=== PATIENT | female | born 1990 | race Caucasian/White ===

== ENCOUNTER 2018-01-02 21:41 | Emergency (ER) | payer OTHER ==
[~2018-01-02] VITALS: Ht 162.6 cm; Wt 60.0 kg
[~2018-01-02 21:41] MED LIST: CLOZ100 PO; CLOZ25TA4 PO; DOCU250C91 PO; HALO5I PO; LORA2I PO; NICO14T TD; ZOLP10TA7 PO
[2018-01-02] MEDS ORDERED: PROP10TA73 PO (22:33)
[2018-01-02] MEDS ORDERED: DIPH50 PO (22:33)
[2018-01-02] MEDS ORDERED: ATOM25 PO (22:33)
[2018-01-02] MEDS ORDERED: QUET300T2 PO (22:33)
[2018-01-02] MEDS ORDERED: CITA10TA68 PO (22:33)
[2018-01-02] MEDS ORDERED: QUET100T PO (22:33)
[2018-01-02 23:32] LABS: BASOPHILS % (AUTO) 0.4 % (0.0-2.0); EOSINOPHILS % (AUTO) 0.1 % (1.0-6.0); HEMATOCRIT 37.5 % (36-46); HEMOGLOBIN 13.3 g/dL (12.0-16.0); LYMPHOCYTES # (AUTO) 1.7 K/uL (1.0-4.8); LYMPHOCYTES % (AUTO) 29.1 % (22.0-44.0); MEAN CORPUSCULAR HGB CONC 35.5 G/dL (31.0-37.0); MEAN CORPUSCULAR VOLUME 93 fL (80-100); MONOCYTES # (AUTO) 0.7 K/uL (0.1-1.0); MONOCYTES % (AUTO) 12.6 % (2.0-9.0); NEUTROPHILS # (AUTO) 3.3 K/uL (1.8-7.7); NEUTROPHILS % (AUTO) 57.8 % (40.0-70.0); PLATELET COUNT (AUTO) 227 K/uL (150-450); RED BLOOD CELL COUNT(AUTO) 4.03 MIL/uL (4.00-5.20); RED CELL DISTRIBUTION WIDTH 13.1 % (11.5-14.5)
[2018-01-02 23:43] LABS: ANION GAP 8 mmol/L (8-16); CALCIUM, TOTAL 8.4 mg/dL (8.8-10.5); CARBON DIOXIDE 27 mmol/L (22-29); CHLORIDE 105 mmol/L (98-107); CREATININE 0.83 mg/dL (0.60-1.30); GLOMERULAR FILTR. RATE CALC > 60 mL/min (>60); GLUCOSE,RANDOM 101 mg/dL (70-110); POTASSIUM 3.4 mmol/L (3.5-5.1); SODIUM SERUM 140 mmol/L (136-145); UREA NITROGEN, BLOOD 9 mg/dL (7-18)
[2018-01-02 23:47] LABS: AMPHET/METH SCREEN,URINE NEGATIVE (NEGATIVE); BARBITURATE SCREEN, URINE NEGATIVE (NEGATIVE); BENZODIAZEPINES SCREEN,URINE NEGATIVE (NEGATIVE); CANNABINOID SCREEN,URINE NEGATIVE (NEGATIVE); COCAINE SCREEN,URINE NEGATIVE (NEGATIVE); METHADONE SCREEN, URINE NEGATIVE (NEGATIVE); OPIATE SCREEN,URINE NEGATIVE (NEGATIVE)
[2018-01-02 23:48] LABS: PHENCYCLIDINE SCREEN,URINE NEGATIVE (NEGATIVE)
[2018-01-02 23:49] LABS: ALANINE AMINOTRANSFERASE 21 U/L (12-78); ALKALINE PHOSPHATASE 69 U/L (46-116); ASPARTATE AMINOTRANSFERASE 21 U/L (15-37); BILIRUBIN,TOTAL 0.9 mg/dL (0.1-1.0); TOTAL PROTEIN, SERUM 7.4 g/dL (6.4-8.2)
[2018-01-02 23:50] LABS: ALBUMIN 4.2 g/dL (3.4-5.0)
[2018-01-03 02:18] VITALS: BP 119/79
== END 2018-01-03 03:33 | disposition home or self-care (01) ==
LOC: EMS 21:43
DX: R00.0 Tachycardia, unspecified (principal); F20.0 Paranoid schizophrenia; R45.4 Irritability and anger; F17.210 Nicotine dependence, cigarettes, uncomplicated
CPT/HCPCS: 36415; 80053; 80307; 84703; 85025; 99284; G0480

== ENCOUNTER 2018-01-31 13:11 | Inpatient (IN) | payer MEDICAID, MEDICARE ==
[~2018-01-31] VITALS: Ht 157.5 cm; Wt 69.2 kg
[~2018-01-31 13:11] MED LIST changes: +ATOM25 PO; +CITA10TA68 PO; -CLOZ100 PO; -CLOZ25TA4 PO; +DIPH50 PO; -DOCU250C91 PO; -HALO5I PO; -LORA2I PO; -NICO14T TD; +PROP10TA73 PO; +QUET100T PO; +QUET300T2 PO; -ZOLP10TA7 PO
[2018-01-31] MEDS ORDERED: OXCA300T29 PO (13:24)
[2018-01-31] MEDS ORDERED: QUET100T PO (13:24)
[2018-01-31] MEDS ORDERED: PROP10TA10 PO (13:24)
[2018-01-31] MEDS ORDERED: OLAN10TA3 PO (13:24)
[2018-01-31] MEDS ORDERED: CITA10TA68 PO (13:24)
[2018-01-31] MEDS ORDERED: CHLO50I IM (13:24)
[2018-01-31] MEDS ORDERED: CHLO100T24 PO (13:24)
[2018-01-31] MEDS ORDERED: QUET200T PO (13:24)
[2018-01-31 15:52] LABS: BASOPHILS % (AUTO) 0.2 % (0.0-2.0); EOSINOPHILS % (AUTO) 0.1 % (1.0-6.0); HEMATOCRIT 37.1 % (36-46); LYMPHOCYTES # (AUTO) 1.6 K/uL (1.0-4.8); MEAN CORPUSCULAR HEMOGLOBIN 32.9 pg (26.0-34.0); MEAN CORPUSCULAR HGB CONC 35.2 G/dL (31.0-37.0); MEAN CORPUSCULAR VOLUME 94 fL (80-100); MONOCYTES # (AUTO) 0.7 K/uL (0.1-1.0); MONOCYTES % (AUTO) 13.8 % (2.0-9.0); NEUTROPHILS # (AUTO) 2.8 K/uL (1.8-7.7); NEUTROPHILS % (AUTO) 54.9 % (40.0-70.0); PLATELET COUNT (AUTO) 248 K/uL (150-450); RED BLOOD CELL COUNT(AUTO) 3.96 MIL/uL (4.00-5.20); RED CELL DISTRIBUTION WIDTH 12.9 % (11.5-14.5)
[2018-01-31 15:58] LABS: ANION GAP 6 mmol/L (8-16); CALCIUM, TOTAL 8.2 mg/dL (8.8-10.5); CARBON DIOXIDE 27 mmol/L (22-29); CHLORIDE 98 mmol/L (98-107); CREATININE 0.58 mg/dL (0.60-1.30); GLOMERULAR FILTR. RATE CALC > 60 mL/min (>60); GLUCOSE,RANDOM 109 mg/dL (70-110); POTASSIUM 3.8 mmol/L (3.5-5.1); SODIUM SERUM 131 mmol/L (136-145); UREA NITROGEN, BLOOD 11 mg/dL (7-18)
[2018-01-31 16:03] LABS: ALANINE AMINOTRANSFERASE 23 U/L (12-78); ALBUMIN 3.6 g/dL (3.4-5.0); ALKALINE PHOSPHATASE 62 U/L (46-116); ASPARTATE AMINOTRANSFERASE 16 U/L (15-37); BILIRUBIN,TOTAL 0.2 mg/dL (0.1-1.0); TOTAL PROTEIN, SERUM 6.8 g/dL (6.4-8.2)
[2018-01-31 17:40] LABS: AMPHET/METH SCREEN,URINE NEGATIVE (NEGATIVE); BARBITURATE SCREEN, URINE NEGATIVE (NEGATIVE); BENZODIAZEPINES SCREEN,URINE NEGATIVE (NEGATIVE); CANNABINOID SCREEN,URINE NEGATIVE (NEGATIVE); COCAINE SCREEN,URINE NEGATIVE (NEGATIVE); METHADONE SCREEN, URINE NEGATIVE (NEGATIVE); OPIATE SCREEN,URINE NEGATIVE (NEGATIVE)
[2018-01-31 17:44] LABS: PHENCYCLIDINE SCREEN,URINE NEGATIVE (NEGATIVE)
[2018-01-31] MEDS ORDERED: LORazepam 2 MG TABLET PO ONE (18:45)
[2018-01-31] MEDS ORDERED: HALOPERIDOL 5 MG TABLET PO PRN (20:15)
[2018-01-31] MEDS ORDERED: HALOPERIDOL 5 MG TABLET PO ONE (20:45)
[2018-01-31] MEDS ORDERED: DiphenhydrAMINE HCL 50 MG CAPSULE PO ONE (20:45)
[2018-01-31 21:13] LABS: CHOL/HDL RATIO 3.3 (3.9-5.7); CHOLESTEROL 158 mg/dL (131-200); HDL CHOLESTEROL 48 mg/dL (40-60); LDL CHOL (CALC.) 79 mg/dL (0-130); TRIGLYCERIDES 154 mg/dL (15-150)
[2018-01-31 21:55] VITALS: BP 118/79
[2018-01-31] MEDS ORDERED: ACETAMINOPHEN 325 MG TABLET PO PRN (22:15)
[2018-01-31] MEDS ORDERED: IBUPROFEN 400 MG TABLET PO PRN (22:15)
[2018-02-01] MEDS: DOCUSATE SODIUM 250 MG CAPSULE PO SCH ×2 (08:33→16:17)
[2018-02-01] MEDS ORDERED: CHLO100T24 PO (09:18)
[2018-02-01] MEDS: OXcarbazepine 300 MG TABLET PO SCH ×2 (10:01→16:17)
[2018-02-01] MEDS: PROPRANOLOL HCL 10 MG TABLET PO SCH ×2 (10:01→16:17)
[2018-02-01] MEDS: CITALOPRAM HYDROBROMIDE 10 MG TABLET PO SCH (10:02)
[2018-02-01] MEDS: NICOTINE 21 MG/24 HOUR PATCH TD SCH (10:05)
[2018-02-01 10:54] VITALS: BP 118/67
[2018-02-01] MEDS ORDERED: DiphenhydrAMINE HCL 50 MG/ML VIAL IM PRN (11:45)
[2018-02-01] MEDS: QUEtiapine FUMARATE 100 MG TABLET PO SCH ×2 (13:25→16:17)
[2018-02-01] MEDS: ChlorproMAZINE HCL 100 MG TABLET PO SCH ×2 (13:25→16:19)
[2018-02-01 19:59] VITALS: BP 125/75
[2018-02-01] MEDS: QUEtiapine FUMARATE 200 MG TABLET PO SCH (20:52)
[2018-02-02] MEDS: ChlorproMAZINE HCL 100 MG TABLET PO SCH ×3 (08:42→16:43)
[2018-02-02] MEDS: CITALOPRAM HYDROBROMIDE 10 MG TABLET PO SCH (08:42)
[2018-02-02] MEDS: QUEtiapine FUMARATE 100 MG TABLET PO SCH ×3 (08:42→16:43)
[2018-02-02] MEDS: DOCUSATE SODIUM 250 MG CAPSULE PO SCH ×2 (08:42→16:44)
[2018-02-02] MEDS: PROPRANOLOL HCL 10 MG TABLET PO SCH ×2 (08:42→16:43)
[2018-02-02] MEDS: OXcarbazepine 300 MG TABLET PO SCH ×2 (08:42→16:43)
[2018-02-02] MEDS: NICOTINE 21 MG/24 HOUR PATCH TD SCH (09:00)
[2018-02-02] MEDS: QUEtiapine FUMARATE 200 MG TABLET PO SCH (21:30)
[2018-02-03] MEDS: ChlorproMAZINE HCL 100 MG TABLET PO SCH ×3 (08:32→16:13)
[2018-02-03] MEDS: PROPRANOLOL HCL 10 MG TABLET PO SCH ×2 (08:32→16:14)
[2018-02-03] MEDS: CITALOPRAM HYDROBROMIDE 10 MG TABLET PO SCH (08:32)
[2018-02-03] MEDS: OXcarbazepine 300 MG TABLET PO SCH ×2 (08:32→16:13)
[2018-02-03] MEDS: QUEtiapine FUMARATE 100 MG TABLET PO SCH ×3 (08:33→16:14)
[2018-02-03] MEDS: DOCUSATE SODIUM 250 MG CAPSULE PO SCH ×2 (08:33→16:14)
[2018-02-03] MEDS: LORazepam 2 MG TABLET PO PRN (08:35)
[2018-02-03] MEDS: NICOTINE 21 MG/24 HOUR PATCH TD SCH (08:38)
[2018-02-03 10:13] VITALS: BP 133/88
[2018-02-03 16:00] VITALS: BP 135/80
[2018-02-03] MEDS: QUEtiapine FUMARATE 200 MG TABLET PO SCH (21:47)
[2018-02-04 06:48] LABS: ANION GAP 9 mmol/L (8-16); CALCIUM, TOTAL 8.6 mg/dL (8.8-10.5); CARBON DIOXIDE 25 mmol/L (22-29); CHLORIDE 103 mmol/L (98-107); GLOMERULAR FILTR. RATE CALC > 60 mL/min (>60); GLUCOSE,RANDOM 91 mg/dL (70-110); POTASSIUM 4.4 mmol/L (3.5-5.1); SODIUM SERUM 137 mmol/L (136-145); UREA NITROGEN, BLOOD 13 mg/dL (7-18)
[2018-02-04 08:00] VITALS: BP 117/75
[2018-02-04] MEDS: LORazepam 2 MG TABLET PO PRN ×2 (08:00→12:30)
[2018-02-04] MEDS: QUEtiapine FUMARATE 100 MG TABLET PO SCH ×3 (09:34→16:26)
[2018-02-04] MEDS: DOCUSATE SODIUM 250 MG CAPSULE PO SCH ×2 (09:34→16:27)
[2018-02-04] MEDS: PROPRANOLOL HCL 10 MG TABLET PO SCH ×2 (09:34→16:29)
[2018-02-04] MEDS: OXcarbazepine 300 MG TABLET PO SCH ×2 (09:36→16:27)
[2018-02-04] MEDS: ChlorproMAZINE HCL 100 MG TABLET PO SCH ×3 (09:36→16:27)
[2018-02-04] MEDS: NICOTINE 21 MG/24 HOUR PATCH TD SCH (09:40)
[2018-02-04] MEDS: CITALOPRAM HYDROBROMIDE 10 MG TABLET PO SCH (09:45)
[2018-02-04 16:28] VITALS: BP 113/61
[2018-02-04] MEDS: QUEtiapine FUMARATE 200 MG TABLET PO SCH (20:44)
[2018-02-05] MEDS: ChlorproMAZINE HCL 100 MG TABLET PO SCH ×3 (08:23→16:44)
[2018-02-05] MEDS: QUEtiapine FUMARATE 100 MG TABLET PO SCH ×3 (08:24→16:44)
[2018-02-05] MEDS: PROPRANOLOL HCL 10 MG TABLET PO SCH ×2 (08:24→16:44)
[2018-02-05] MEDS: DOCUSATE SODIUM 250 MG CAPSULE PO SCH ×2 (08:24→16:43)
[2018-02-05] MEDS: OXcarbazepine 300 MG TABLET PO SCH ×2 (08:24→16:44)
[2018-02-05] MEDS: CITALOPRAM HYDROBROMIDE 10 MG TABLET PO SCH (08:24)
[2018-02-05] MEDS: NICOTINE 21 MG/24 HOUR PATCH TD SCH (08:25)
[2018-02-05] MEDS: LORazepam 2 MG TABLET PO PRN ×2 (09:37→15:49)
[2018-02-05 09:47] VITALS: BP 90/65
[2018-02-05] MEDS: QUEtiapine FUMARATE 200 MG TABLET PO SCH (21:25)
[2018-02-06] MEDS: LORazepam 2 MG TABLET PO PRN ×2 (05:50→12:08)
[2018-02-06] MEDS: ChlorproMAZINE HCL 100 MG TABLET PO SCH ×3 (08:01→16:27)
[2018-02-06] MEDS: DOCUSATE SODIUM 250 MG CAPSULE PO SCH ×2 (08:01→16:28)
[2018-02-06] MEDS: QUEtiapine FUMARATE 100 MG TABLET PO SCH ×3 (08:01→16:28)
[2018-02-06] MEDS: PROPRANOLOL HCL 10 MG TABLET PO SCH ×2 (08:01→16:27)
[2018-02-06] MEDS: OXcarbazepine 300 MG TABLET PO SCH ×2 (08:01→16:27)
[2018-02-06] MEDS: NICOTINE 21 MG/24 HOUR PATCH TD SCH (08:02)
[2018-02-06] MEDS: CITALOPRAM HYDROBROMIDE 10 MG TABLET PO SCH (08:02)
[2018-02-06] MEDS: OLANZapine 5 MG TABLET PO PRN ×2 (08:04→12:09)
[2018-02-06 16:39] VITALS: BP 114/69
[2018-02-06] MEDS: QUEtiapine FUMARATE 200 MG TABLET PO SCH (22:14)
[2018-02-07] MEDS: LORazepam 2 MG TABLET PO PRN ×3 (04:15→12:59)
[2018-02-07] MEDS: ChlorproMAZINE HCL 100 MG TABLET PO SCH ×3 (07:53→16:06)
[2018-02-07] MEDS: PROPRANOLOL HCL 10 MG TABLET PO SCH ×2 (07:53→16:06)
[2018-02-07] MEDS: OXcarbazepine 300 MG TABLET PO SCH ×2 (07:53→16:06)
[2018-02-07] MEDS: QUEtiapine FUMARATE 100 MG TABLET PO SCH ×3 (07:53→16:06)
[2018-02-07] MEDS: DOCUSATE SODIUM 250 MG CAPSULE PO SCH ×2 (07:53→16:06)
[2018-02-07] MEDS: CITALOPRAM HYDROBROMIDE 10 MG TABLET PO SCH (07:53)
[2018-02-07] MEDS: NICOTINE 21 MG/24 HOUR PATCH TD SCH (07:53)
[2018-02-07 08:00] VITALS: BP 116/75
[2018-02-07] MEDS: OLANZapine 5 MG TABLET PO PRN ×2 (08:53→12:59)
[2018-02-07 20:10] VITALS: BP 114/85
[2018-02-07] MEDS: QUEtiapine FUMARATE 200 MG TABLET PO SCH (21:14)
[2018-02-08] MEDS: CITALOPRAM HYDROBROMIDE 10 MG TABLET PO SCH (08:04)
[2018-02-08] MEDS: OLANZapine 5 MG TABLET PO PRN ×2 (08:05→12:31)
[2018-02-08] MEDS: OXcarbazepine 300 MG TABLET PO SCH ×2 (08:05→17:01)
[2018-02-08] MEDS: NICOTINE 21 MG/24 HOUR PATCH TD SCH (08:05)
[2018-02-08] MEDS: LORazepam 2 MG TABLET PO PRN ×3 (08:05→17:01)
[2018-02-08] MEDS: QUEtiapine FUMARATE 100 MG TABLET PO SCH ×3 (08:05→16:44)
[2018-02-08] MEDS: PROPRANOLOL HCL 10 MG TABLET PO SCH ×2 (08:05→17:01)
[2018-02-08] MEDS: ChlorproMAZINE HCL 100 MG TABLET PO SCH ×3 (08:06→17:01)
[2018-02-08] MEDS: DOCUSATE SODIUM 250 MG CAPSULE PO SCH ×2 (08:07→16:44)
[2018-02-08 09:00] VITALS: BP 118/64
[2018-02-08 16:19] VITALS: BP 130/90
[2018-02-08] MEDS: QUEtiapine FUMARATE 200 MG TABLET PO SCH (21:11)
[2018-02-09] MEDS: ZOLPIDEM TARTRATE 10 MG TABLET PO PRN (01:27)
[2018-02-09] MEDS: OLANZapine 5 MG TABLET PO PRN (01:27)
[2018-02-09] MEDS: CITALOPRAM HYDROBROMIDE 10 MG TABLET PO SCH (08:15)
[2018-02-09] MEDS: ChlorproMAZINE HCL 100 MG TABLET PO SCH ×3 (08:16→17:11)
[2018-02-09] MEDS: OXcarbazepine 300 MG TABLET PO SCH ×2 (08:16→17:11)
[2018-02-09] MEDS: PROPRANOLOL HCL 10 MG TABLET PO SCH ×2 (08:16→17:11)
[2018-02-09] MEDS: DOCUSATE SODIUM 250 MG CAPSULE PO SCH ×2 (08:16→17:11)
[2018-02-09] MEDS: QUEtiapine FUMARATE 100 MG TABLET PO SCH ×3 (08:16→17:11)
[2018-02-09] MEDS: NICOTINE 21 MG/24 HOUR PATCH TD SCH (08:20)
[2018-02-09] MEDS: LORazepam 2 MG TABLET PO PRN ×2 (08:28→14:55)
[2018-02-09] MEDS ORDERED: TUBERCULIN, PURIFIED PROTEIN DERIVATIVE 5 TU/0.1 ML SYG ID ONE (14:30)
[2018-02-09 16:12] VITALS: BP 123/78
[2018-02-09] MEDS: QUEtiapine FUMARATE 200 MG TABLET PO SCH (21:08)
[2018-02-10 09:07] VITALS: BP 126/72
[2018-02-10] MEDS: CITALOPRAM HYDROBROMIDE 10 MG TABLET PO SCH (09:56)
[2018-02-10] MEDS: LORazepam 2 MG TABLET PO PRN ×2 (10:00→16:48)
[2018-02-10] MEDS: PROPRANOLOL HCL 10 MG TABLET PO SCH ×2 (10:01→16:48)
[2018-02-10] MEDS: NICOTINE 21 MG/24 HOUR PATCH TD SCH (10:01)
[2018-02-10] MEDS: ChlorproMAZINE HCL 100 MG TABLET PO SCH ×3 (10:01→16:47)
[2018-02-10] MEDS: QUEtiapine FUMARATE 100 MG TABLET PO SCH ×3 (10:01→16:48)
[2018-02-10] MEDS: DOCUSATE SODIUM 250 MG CAPSULE PO SCH ×2 (10:01→16:48)
[2018-02-10] MEDS: OLANZapine 5 MG TABLET PO PRN (10:02)
[2018-02-10] MEDS: OXcarbazepine 300 MG TABLET PO SCH ×2 (10:02→16:47)
[2018-02-10 16:00] VITALS: BP 121/82
[2018-02-10] MEDS: ZOLPIDEM TARTRATE 10 MG TABLET PO PRN (21:12)
[2018-02-10] MEDS: QUEtiapine FUMARATE 200 MG TABLET PO SCH (21:13)
[2018-02-11 07:02] LABS: ANION GAP 7 mmol/L (8-16); CALCIUM, TOTAL 8.2 mg/dL (8.8-10.5); CARBON DIOXIDE 26 mmol/L (22-29); CHLORIDE 98 mmol/L (98-107); GLOMERULAR FILTR. RATE CALC > 60 mL/min (>60); GLUCOSE,RANDOM 94 mg/dL (70-110); POTASSIUM 4.2 mmol/L (3.5-5.1); SODIUM SERUM 131 mmol/L (136-145); UREA NITROGEN, BLOOD 17 mg/dL (7-18)
[2018-02-11 08:44] VITALS: BP 104/70
[2018-02-11 08:48] VITALS: BP 104/70
[2018-02-11] MEDS: ChlorproMAZINE HCL 100 MG TABLET PO SCH ×3 (08:49→16:33)
[2018-02-11] MEDS: PROPRANOLOL HCL 10 MG TABLET PO SCH ×2 (08:49→16:33)
[2018-02-11] MEDS: CITALOPRAM HYDROBROMIDE 10 MG TABLET PO SCH (08:49)
[2018-02-11] MEDS: OXcarbazepine 300 MG TABLET PO SCH ×2 (08:49→16:34)
[2018-02-11] MEDS: QUEtiapine FUMARATE 100 MG TABLET PO SCH ×3 (08:49→16:33)
[2018-02-11] MEDS: NICOTINE 21 MG/24 HOUR PATCH TD SCH (08:50)
[2018-02-11] MEDS: DOCUSATE SODIUM 250 MG CAPSULE PO SCH ×2 (08:50→16:33)
[2018-02-11] MEDS: LORazepam 2 MG TABLET PO PRN ×2 (09:06→17:04)
[2018-02-11] MEDS: QUEtiapine FUMARATE 200 MG TABLET PO SCH (20:16)
[2018-02-11] MEDS: ZOLPIDEM TARTRATE 10 MG TABLET PO PRN (20:31)
[2018-02-12 04:27] VITALS: BP 116/68
[2018-02-12] MEDS: CITALOPRAM HYDROBROMIDE 10 MG TABLET PO SCH (08:22)
[2018-02-12] MEDS: OXcarbazepine 300 MG TABLET PO SCH ×2 (08:24→16:11)
[2018-02-12] MEDS: DOCUSATE SODIUM 250 MG CAPSULE PO SCH ×2 (08:25→16:11)
[2018-02-12] MEDS: PROPRANOLOL HCL 10 MG TABLET PO SCH ×2 (08:25→16:11)
[2018-02-12] MEDS: LORazepam 2 MG TABLET PO PRN ×2 (08:25→13:18)
[2018-02-12] MEDS: ChlorproMAZINE HCL 100 MG TABLET PO SCH ×3 (08:25→16:11)
[2018-02-12] MEDS: OLANZapine 5 MG TABLET PO PRN ×2 (08:25→13:18)
[2018-02-12] MEDS: QUEtiapine FUMARATE 100 MG TABLET PO SCH ×3 (08:25→16:11)
[2018-02-12] MEDS: NICOTINE 21 MG/24 HOUR PATCH TD SCH (08:26)
[2018-02-12 12:18] VITALS: BP 100/58
[2018-02-12 16:00] VITALS: BP 116/71
[2018-02-12] MEDS: SODIUM CHLORIDE 1 GM TABLET PO SCH (16:14)
[2018-02-12] MEDS: QUEtiapine FUMARATE 200 MG TABLET PO SCH (20:17)
[2018-02-13] MEDS: CITALOPRAM HYDROBROMIDE 10 MG TABLET PO SCH (08:32)
[2018-02-13] MEDS: DOCUSATE SODIUM 250 MG CAPSULE PO SCH ×2 (08:32→16:24)
[2018-02-13] MEDS: ChlorproMAZINE HCL 100 MG TABLET PO SCH ×3 (08:32→16:24)
[2018-02-13] MEDS: SODIUM CHLORIDE 1 GM TABLET PO SCH ×2 (08:33→16:24)
[2018-02-13] MEDS: OXcarbazepine 300 MG TABLET PO SCH ×2 (08:33→16:24)
[2018-02-13] MEDS: QUEtiapine FUMARATE 100 MG TABLET PO SCH ×3 (08:33→16:24)
[2018-02-13] MEDS: PROPRANOLOL HCL 10 MG TABLET PO SCH ×2 (08:33→16:26)
[2018-02-13] MEDS: OLANZapine 5 MG TABLET PO PRN ×2 (08:35→12:37)
[2018-02-13] MEDS: LORazepam 2 MG TABLET PO PRN ×2 (08:35→12:37)
[2018-02-13] MEDS: NICOTINE 21 MG/24 HOUR PATCH TD SCH (09:00)
[2018-02-13 09:23] VITALS: BP 107/66
[2018-02-13 16:30] VITALS: BP 112/64
[2018-02-13] MEDS: QUEtiapine FUMARATE 200 MG TABLET PO SCH (20:16)
[2018-02-14] MEDS: OXcarbazepine 300 MG TABLET PO SCH ×2 (08:36→16:14)
[2018-02-14] MEDS: CITALOPRAM HYDROBROMIDE 10 MG TABLET PO SCH (08:36)
[2018-02-14] MEDS: QUEtiapine FUMARATE 100 MG TABLET PO SCH ×3 (08:36→16:15)
[2018-02-14] MEDS: DOCUSATE SODIUM 250 MG CAPSULE PO SCH ×2 (08:36→16:15)
[2018-02-14] MEDS: ChlorproMAZINE HCL 100 MG TABLET PO SCH ×3 (08:36→16:15)
[2018-02-14] MEDS: SODIUM CHLORIDE 1 GM TABLET PO SCH ×2 (08:36→16:14)
[2018-02-14] MEDS: NICOTINE 21 MG/24 HOUR PATCH TD SCH (08:36)
[2018-02-14] MEDS: PROPRANOLOL HCL 10 MG TABLET PO SCH ×2 (08:36→16:15)
[2018-02-14] MEDS: LORazepam 2 MG TABLET PO PRN ×2 (10:26→16:00)
[2018-02-14 12:37] VITALS: BP 109/67
[2018-02-14 16:00] VITALS: BP 129/81
[2018-02-14] MEDS: QUEtiapine FUMARATE 200 MG TABLET PO SCH (20:04)
[2018-02-14] MEDS: ZOLPIDEM TARTRATE 10 MG TABLET PO PRN (20:04)
[2018-02-15 07:09] LABS: ANION GAP 7 mmol/L (8-16); CALCIUM, TOTAL 8.4 mg/dL (8.8-10.5); CARBON DIOXIDE 24 mmol/L (22-29); CHLORIDE 94 mmol/L (98-107); CREATININE 0.66 mg/dL (0.60-1.30); GLOMERULAR FILTR. RATE CALC > 60 mL/min (>60); GLUCOSE,RANDOM 92 mg/dL (70-110); POTASSIUM 4.4 mmol/L (3.5-5.1); SODIUM SERUM 125 mmol/L (136-145); UREA NITROGEN, BLOOD 12 mg/dL (7-18)
[2018-02-15 10:10] VITALS: BP 121/71
[2018-02-15] MEDS: SODIUM CHLORIDE 1 GM TABLET PO SCH ×2 (11:15→23:05)
[2018-02-15] MEDS: CITALOPRAM HYDROBROMIDE 10 MG TABLET PO SCH (11:15)
[2018-02-15] MEDS: QUEtiapine FUMARATE 100 MG TABLET PO SCH ×3 (11:17→16:46)
[2018-02-15] MEDS: NICOTINE 21 MG/24 HOUR PATCH TD SCH (11:17)
[2018-02-15] MEDS: PROPRANOLOL HCL 10 MG TABLET PO SCH ×2 (11:18→18:23)
[2018-02-15] MEDS: OXcarbazepine 300 MG TABLET PO SCH ×2 (11:18→16:45)
[2018-02-15] MEDS: LORazepam 2 MG TABLET PO PRN ×2 (11:18→16:47)
[2018-02-15] MEDS: OLANZapine 5 MG TABLET PO PRN (11:18)
[2018-02-15] MEDS: DOCUSATE SODIUM 250 MG CAPSULE PO SCH ×2 (11:19→16:45)
[2018-02-15] MEDS: ChlorproMAZINE HCL 100 MG TABLET PO SCH ×2 (14:28→16:46)
[2018-02-15 16:18] VITALS: BP 130/80
[2018-02-15] MEDS: QUEtiapine FUMARATE 200 MG TABLET PO SCH (23:05)
[2018-02-16 06:22] LABS: BASOPHILS % (AUTO) 0.2 % (0.0-2.0); EOSINOPHILS % (AUTO) 0.2 % (1.0-6.0); HEMATOCRIT 37.3 % (36-46); LYMPHOCYTES # (AUTO) 1.8 K/uL (1.0-4.8); LYMPHOCYTES % (AUTO) 30.7 % (22.0-44.0); MEAN CORPUSCULAR HEMOGLOBIN 32.9 pg (26.0-34.0); MEAN CORPUSCULAR HGB CONC 34.9 G/dL (31.0-37.0); MEAN CORPUSCULAR VOLUME 94 fL (80-100); MONOCYTES # (AUTO) 0.9 K/uL (0.1-1.0); MONOCYTES % (AUTO) 15.5 % (2.0-9.0); NEUTROPHILS # (AUTO) 3.1 K/uL (1.8-7.7); NEUTROPHILS % (AUTO) 53.4 % (40.0-70.0); PLATELET COUNT (AUTO) 211 K/uL (150-450); RED BLOOD CELL COUNT(AUTO) 3.95 MIL/uL (4.00-5.20); RED CELL DISTRIBUTION WIDTH 12.8 % (11.5-14.5)
[2018-02-16 06:28] LABS: ANION GAP 5 mmol/L (8-16); CALCIUM, TOTAL 8.5 mg/dL (8.8-10.5); CARBON DIOXIDE 26 mmol/L (22-29); CHLORIDE 102 mmol/L (98-107); CREATININE 0.66 mg/dL (0.60-1.30); GLOMERULAR FILTR. RATE CALC > 60 mL/min (>60); GLUCOSE,RANDOM 98 mg/dL (70-110); POTASSIUM 4.2 mmol/L (3.5-5.1); SODIUM SERUM 133 mmol/L (136-145); UREA NITROGEN, BLOOD 14 mg/dL (7-18)
[2018-02-16] MEDS: CITALOPRAM HYDROBROMIDE 10 MG TABLET PO SCH (08:56)
[2018-02-16] MEDS: PROPRANOLOL HCL 10 MG TABLET PO SCH ×2 (08:57→16:25)
[2018-02-16] MEDS: SODIUM CHLORIDE 1 GM TABLET PO SCH ×3 (08:57→16:26)
[2018-02-16] MEDS: OXcarbazepine 300 MG TABLET PO SCH ×2 (08:58→16:26)
[2018-02-16] MEDS: QUEtiapine FUMARATE 100 MG TABLET PO SCH ×3 (08:58→16:25)
[2018-02-16] MEDS: ChlorproMAZINE HCL 100 MG TABLET PO SCH ×3 (08:58→16:25)
[2018-02-16] MEDS: DOCUSATE SODIUM 250 MG CAPSULE PO SCH ×2 (08:59→16:26)
[2018-02-16] MEDS: NICOTINE 21 MG/24 HOUR PATCH TD SCH (08:59)
[2018-02-16] MEDS ORDERED: CloZAPine 25 MG TABLET PO SCH (09:00)
[2018-02-16 12:24] VITALS: BP 107/74
[2018-02-16] MEDS: LORazepam 2 MG TABLET PO PRN (12:55)
[2018-02-16 16:27] VITALS: BP 128/74
[2018-02-16] MEDS: QUEtiapine FUMARATE 200 MG TABLET PO SCH (20:58)
[2018-02-16] MEDS: ZOLPIDEM TARTRATE 10 MG TABLET PO PRN (20:58)
[2018-02-17] MEDS: ChlorproMAZINE HCL 100 MG TABLET PO SCH ×3 (08:16→16:06)
[2018-02-17] MEDS: CITALOPRAM HYDROBROMIDE 10 MG TABLET PO SCH (08:16)
[2018-02-17] MEDS: QUEtiapine FUMARATE 100 MG TABLET PO SCH ×3 (08:16→16:07)
[2018-02-17] MEDS: SODIUM CHLORIDE 1 GM TABLET PO SCH ×3 (08:16→16:05)
[2018-02-17] MEDS: LORazepam 2 MG TABLET PO PRN (08:16)
[2018-02-17] MEDS: DOCUSATE SODIUM 250 MG CAPSULE PO SCH ×2 (08:17→16:07)
[2018-02-17] MEDS: OXcarbazepine 300 MG TABLET PO SCH ×2 (08:17→16:06)
[2018-02-17] MEDS: PROPRANOLOL HCL 10 MG TABLET PO SCH ×2 (08:19→16:06)
[2018-02-17] MEDS: NICOTINE 21 MG/24 HOUR PATCH TD SCH (08:21)
[2018-02-17 08:30] VITALS: BP_SYST 106
[2018-02-17 08:39] VITALS: BP 106/77
[2018-02-17] MEDS ORDERED: CloZAPine 25 MG TABLET PO SCH ×2 (09:00→21:00)
[2018-02-17 16:17] VITALS: BP 108/78
[2018-02-17] MEDS: QUEtiapine FUMARATE 200 MG TABLET PO SCH (21:06)
[2018-02-17] MEDS: ZOLPIDEM TARTRATE 10 MG TABLET PO PRN (21:06)
[2018-02-18 06:47] LABS: ANION GAP 10 mmol/L (8-16); CALCIUM, TOTAL 8.7 mg/dL (8.8-10.5); CARBON DIOXIDE 24 mmol/L (22-29); CHLORIDE 102 mmol/L (98-107); CREATININE 0.64 mg/dL (0.60-1.30); GLOMERULAR FILTR. RATE CALC > 60 mL/min (>60); GLUCOSE,RANDOM 106 mg/dL (70-110); POTASSIUM 4.6 mmol/L (3.5-5.1); SODIUM SERUM 136 mmol/L (136-145); UREA NITROGEN, BLOOD 14 mg/dL (7-18)
[2018-02-18] MEDS: LORazepam 2 MG TABLET PO PRN (07:50)
[2018-02-18] MEDS: PROPRANOLOL HCL 10 MG TABLET PO SCH ×2 (08:32→16:31)
[2018-02-18] MEDS: ChlorproMAZINE HCL 100 MG TABLET PO SCH ×3 (08:32→16:31)
[2018-02-18] MEDS: SODIUM CHLORIDE 1 GM TABLET PO SCH ×2 (08:32→12:30)
[2018-02-18] MEDS: NICOTINE 21 MG/24 HOUR PATCH TD SCH (08:32)
[2018-02-18] MEDS: DOCUSATE SODIUM 250 MG CAPSULE PO SCH ×2 (08:33→16:31)
[2018-02-18] MEDS: OXcarbazepine 300 MG TABLET PO SCH ×2 (08:33→16:31)
[2018-02-18] MEDS: CITALOPRAM HYDROBROMIDE 10 MG TABLET PO SCH (08:33)
[2018-02-18] MEDS: QUEtiapine FUMARATE 100 MG TABLET PO SCH ×3 (08:33→16:31)
[2018-02-18] MEDS ORDERED: CloZAPine 25 MG TABLET PO SCH ×2 (09:00→21:00)
[2018-02-18 09:08] VITALS: BP 122/79
[2018-02-18 16:01] VITALS: BP 116/73
[2018-02-18] MEDS: QUEtiapine FUMARATE 200 MG TABLET PO SCH (21:22)
[2018-02-19] MEDS: QUEtiapine FUMARATE 100 MG TABLET PO SCH ×3 (08:06→17:41)
[2018-02-19] MEDS: LORazepam 2 MG TABLET PO PRN (08:07)
[2018-02-19] MEDS: ChlorproMAZINE HCL 100 MG TABLET PO SCH ×3 (08:07→17:40)
[2018-02-19] MEDS: OXcarbazepine 300 MG TABLET PO SCH ×2 (08:07→17:41)
[2018-02-19] MEDS: PROPRANOLOL HCL 10 MG TABLET PO SCH ×2 (08:07→17:40)
[2018-02-19] MEDS: CloZAPine 25 MG TABLET PO SCH ×2 (08:07→20:22)
[2018-02-19] MEDS: CITALOPRAM HYDROBROMIDE 10 MG TABLET PO SCH (08:07)
[2018-02-19] MEDS: DOCUSATE SODIUM 250 MG CAPSULE PO SCH ×2 (08:07→17:41)
[2018-02-19] MEDS: NICOTINE 21 MG/24 HOUR PATCH TD SCH (08:12)
[2018-02-19 09:08] VITALS: BP 124/64
[2018-02-19 16:25] VITALS: BP 118/78
[2018-02-19] MEDS: QUEtiapine FUMARATE 200 MG TABLET PO SCH (20:22)
[2018-02-20 07:04] LABS: ANION GAP 8 mmol/L (8-16); CALCIUM, TOTAL 8.8 mg/dL (8.8-10.5); CARBON DIOXIDE 25 mmol/L (22-29); CHLORIDE 97 mmol/L (98-107); CREATININE 0.68 mg/dL (0.60-1.30); GLOMERULAR FILTR. RATE CALC > 60 mL/min (>60); GLUCOSE,RANDOM 111 mg/dL (70-110); POTASSIUM 4.2 mmol/L (3.5-5.1); SODIUM SERUM 130 mmol/L (136-145); UREA NITROGEN, BLOOD 11 mg/dL (7-18)
[2018-02-20 08:30] VITALS: BP 117/65
[2018-02-20] MEDS: NICOTINE 21 MG/24 HOUR PATCH TD SCH (08:30)
[2018-02-20] MEDS: PROPRANOLOL HCL 10 MG TABLET PO SCH ×2 (08:30→16:45)
[2018-02-20] MEDS: ChlorproMAZINE HCL 100 MG TABLET PO SCH ×3 (08:31→16:45)
[2018-02-20] MEDS: QUEtiapine FUMARATE 100 MG TABLET PO SCH ×3 (08:31→16:45)
[2018-02-20] MEDS: OXcarbazepine 300 MG TABLET PO SCH ×2 (08:31→16:47)
[2018-02-20] MEDS: DOCUSATE SODIUM 250 MG CAPSULE PO SCH ×2 (08:31→16:45)
[2018-02-20] MEDS: CloZAPine 25 MG TABLET PO SCH ×2 (08:32→21:07)
[2018-02-20] MEDS: CITALOPRAM HYDROBROMIDE 10 MG TABLET PO SCH (08:33)
[2018-02-20 16:25] VITALS: BP 112/72
[2018-02-20] MEDS: QUEtiapine FUMARATE 200 MG TABLET PO SCH (21:07)
[2018-02-21] MEDS: CITALOPRAM HYDROBROMIDE 10 MG TABLET PO SCH (07:52)
[2018-02-21] MEDS: DOCUSATE SODIUM 250 MG CAPSULE PO SCH ×2 (07:52→17:14)
[2018-02-21] MEDS: ChlorproMAZINE HCL 100 MG TABLET PO SCH ×3 (07:52→17:14)
[2018-02-21] MEDS: OXcarbazepine 300 MG TABLET PO SCH ×2 (07:52→17:14)
[2018-02-21] MEDS: QUEtiapine FUMARATE 100 MG TABLET PO SCH ×3 (07:52→17:14)
[2018-02-21] MEDS: PROPRANOLOL HCL 10 MG TABLET PO SCH ×2 (07:52→17:14)
[2018-02-21] MEDS: NICOTINE 21 MG/24 HOUR PATCH TD SCH (07:53)
[2018-02-21] MEDS: LORazepam 2 MG TABLET PO PRN (07:53)
[2018-02-21 08:00] VITALS: BP 117/80
[2018-02-21] MEDS ORDERED: CloZAPine 25 MG TABLET PO SCH (09:00)
[2018-02-21 16:06] VITALS: BP 120/74
[2018-02-21] MEDS: QUEtiapine FUMARATE 200 MG TABLET PO SCH (20:24)
[2018-02-21] MEDS ORDERED: CloZAPine 100 MG TABLET PO SCH (21:00)
[2018-02-22 07:03] LABS: ANION GAP 10 mmol/L (8-16); CALCIUM, TOTAL 8.6 mg/dL (8.8-10.5); CARBON DIOXIDE 24 mmol/L (22-29); CHLORIDE 96 mmol/L (98-107); CREATININE 0.61 mg/dL (0.60-1.30); GLOMERULAR FILTR. RATE CALC > 60 mL/min (>60); GLUCOSE,RANDOM 104 mg/dL (70-110); POTASSIUM 4.1 mmol/L (3.5-5.1); SODIUM SERUM 130 mmol/L (136-145); UREA NITROGEN, BLOOD 9 mg/dL (7-18)
[2018-02-22] MEDS: ChlorproMAZINE HCL 100 MG TABLET PO SCH (08:00)
[2018-02-22] MEDS: OXcarbazepine 300 MG TABLET PO SCH ×2 (08:01→16:59)
[2018-02-22] MEDS: CITALOPRAM HYDROBROMIDE 10 MG TABLET PO SCH (08:01)
[2018-02-22] MEDS: DOCUSATE SODIUM 250 MG CAPSULE PO SCH ×2 (08:01→16:59)
[2018-02-22] MEDS: QUEtiapine FUMARATE 100 MG TABLET PO SCH ×3 (08:01→16:59)
[2018-02-22] MEDS: PROPRANOLOL HCL 10 MG TABLET PO SCH ×2 (08:02→16:59)
[2018-02-22] MEDS: NICOTINE 21 MG/24 HOUR PATCH TD SCH (08:02)
[2018-02-22] MEDS ORDERED: CloZAPine 25 MG TABLET PO SCH (09:00)
[2018-02-22] MEDS: ChlorproMAZINE HCL 50 MG TABLET PO SCH ×3 (09:23→17:00)
[2018-02-22 16:13] VITALS: BP 119/72
[2018-02-22] MEDS: SODIUM CHLORIDE 1 GM TABLET PO SCH (16:59)
[2018-02-22] MEDS: QUEtiapine FUMARATE 200 MG TABLET PO SCH (20:03)
[2018-02-22] MEDS: ZOLPIDEM TARTRATE 10 MG TABLET PO PRN (20:03)
[2018-02-22] MEDS ORDERED: CloZAPine 100 MG TABLET PO SCH (21:00)
[2018-02-23 06:50] LABS: BASOPHILS % (AUTO) 0.4 % (0.0-2.0); EOSINOPHILS % (AUTO) 0.1 % (1.0-6.0); HEMATOCRIT 37.5 % (36-46); HEMOGLOBIN 13.2 g/dL (12.0-16.0); LYMPHOCYTES # (AUTO) 1.6 K/uL (1.0-4.8); LYMPHOCYTES % (AUTO) 29.2 % (22.0-44.0); MEAN CORPUSCULAR HEMOGLOBIN 33.2 pg (26.0-34.0); MEAN CORPUSCULAR HGB CONC 35.3 G/dL (31.0-37.0); MEAN CORPUSCULAR VOLUME 94 fL (80-100); MONOCYTES # (AUTO) 0.8 K/uL (0.1-1.0); MONOCYTES % (AUTO) 15.4 % (2.0-9.0); NEUTROPHILS # (AUTO) 2.9 K/uL (1.8-7.7); NEUTROPHILS % (AUTO) 54.9 % (40.0-70.0); PLATELET COUNT (AUTO) 218 K/uL (150-450); RED BLOOD CELL COUNT(AUTO) 3.98 MIL/uL (4.00-5.20); RED CELL DISTRIBUTION WIDTH 13.1 % (11.5-14.5)
[2018-02-23] MEDS: CITALOPRAM HYDROBROMIDE 10 MG TABLET PO SCH (08:13)
[2018-02-23] MEDS: DOCUSATE SODIUM 250 MG CAPSULE PO SCH ×2 (08:13→16:42)
[2018-02-23] MEDS: OXcarbazepine 300 MG TABLET PO SCH ×2 (08:13→16:43)
[2018-02-23] MEDS: QUEtiapine FUMARATE 100 MG TABLET PO SCH ×3 (08:13→16:42)
[2018-02-23] MEDS: SODIUM CHLORIDE 1 GM TABLET PO SCH ×2 (08:13→16:43)
[2018-02-23] MEDS: PROPRANOLOL HCL 10 MG TABLET PO SCH ×2 (08:13→16:43)
[2018-02-23] MEDS: ChlorproMAZINE HCL 50 MG TABLET PO SCH ×3 (08:14→16:43)
[2018-02-23] MEDS ORDERED: CloZAPine 25 MG TABLET PO SCH (09:00)
[2018-02-23] MEDS: NICOTINE 21 MG/24 HOUR PATCH TD SCH (09:51)
[2018-02-23 19:30] VITALS: BP 118/72
[2018-02-23] MEDS: LORazepam 2 MG TABLET PO PRN (19:49)
[2018-02-23] MEDS: ZOLPIDEM TARTRATE 10 MG TABLET PO PRN (20:30)
[2018-02-23] MEDS: QUEtiapine FUMARATE 200 MG TABLET PO SCH (20:30)
[2018-02-23] MEDS ORDERED: CloZAPine 100 MG TABLET PO SCH (21:00)
[2018-02-24 07:58] LABS: ANION GAP 7 mmol/L (8-16); CARBON DIOXIDE 24 mmol/L (22-29); CHLORIDE 103 mmol/L (98-107); CREATININE 0.56 mg/dL (0.60-1.30); GLUCOSE,RANDOM 113 mg/dL (70-110); POTASSIUM 4.2 mmol/L (3.5-5.1); SODIUM SERUM 134 mmol/L (136-145); UREA NITROGEN, BLOOD 8 mg/dL (7-18)
[2018-02-24 07:59] LABS: CALCIUM, TOTAL 8.3 mg/dL (8.8-10.5); GLOMERULAR FILTR. RATE CALC > 60 mL/min (>60)
[2018-02-24 08:26] VITALS: BP 102/62
[2018-02-24] MEDS: DOCUSATE SODIUM 250 MG CAPSULE PO SCH ×2 (09:04→16:24)
[2018-02-24] MEDS: CloZAPine 100 MG TABLET PO SCH ×2 (09:05→20:00)
[2018-02-24] MEDS: QUEtiapine FUMARATE 100 MG TABLET PO SCH ×3 (09:05→16:24)
[2018-02-24] MEDS: OXcarbazepine 300 MG TABLET PO SCH ×2 (09:05→16:25)
[2018-02-24] MEDS: SODIUM CHLORIDE 1 GM TABLET PO SCH ×2 (09:06→16:24)
[2018-02-24] MEDS: PROPRANOLOL HCL 10 MG TABLET PO SCH ×2 (09:06→16:24)
[2018-02-24] MEDS: ChlorproMAZINE HCL 50 MG TABLET PO SCH ×3 (09:06→16:24)
[2018-02-24] MEDS: NICOTINE 21 MG/24 HOUR PATCH TD SCH (09:06)
[2018-02-24] MEDS: CITALOPRAM HYDROBROMIDE 10 MG TABLET PO SCH (09:06)
[2018-02-24 16:05] VITALS: BP 115/78
[2018-02-24] MEDS: QUEtiapine FUMARATE 200 MG TABLET PO SCH (20:00)
[2018-02-24] MEDS: ZOLPIDEM TARTRATE 10 MG TABLET PO PRN (20:36)
[2018-02-25 06:56] LABS: ANION GAP 7 mmol/L (8-16); CALCIUM, TOTAL 8.6 mg/dL (8.8-10.5); CARBON DIOXIDE 25 mmol/L (22-29); CHLORIDE 103 mmol/L (98-107); CREATININE 0.71 mg/dL (0.60-1.30); GLOMERULAR FILTR. RATE CALC > 60 mL/min (>60); GLUCOSE,RANDOM 92 mg/dL (70-110); POTASSIUM 4.3 mmol/L (3.5-5.1); SODIUM SERUM 135 mmol/L (136-145); UREA NITROGEN, BLOOD 11 mg/dL (7-18)
[2018-02-25] MEDS: OXcarbazepine 300 MG TABLET PO SCH ×2 (08:14→16:06)
[2018-02-25] MEDS: QUEtiapine FUMARATE 100 MG TABLET PO SCH ×3 (08:14→16:05)
[2018-02-25] MEDS: NICOTINE 21 MG/24 HOUR PATCH TD SCH (08:14)
[2018-02-25] MEDS: CITALOPRAM HYDROBROMIDE 10 MG TABLET PO SCH (08:14)
[2018-02-25] MEDS: SODIUM CHLORIDE 1 GM TABLET PO SCH ×2 (08:14→16:05)
[2018-02-25] MEDS: PROPRANOLOL HCL 10 MG TABLET PO SCH ×2 (08:14→16:05)
[2018-02-25] MEDS: DOCUSATE SODIUM 250 MG CAPSULE PO SCH ×2 (08:14→16:05)
[2018-02-25] MEDS: ChlorproMAZINE HCL 50 MG TABLET PO SCH ×3 (08:14→16:05)
[2018-02-25] MEDS: CloZAPine 100 MG TABLET PO SCH ×2 (08:15→20:24)
[2018-02-25 08:24] VITALS: BP 105/62
[2018-02-25] MEDS: LORazepam 2 MG TABLET PO PRN (15:22)
[2018-02-25 16:36] VITALS: BP 110/77
[2018-02-25] MEDS: QUEtiapine FUMARATE 200 MG TABLET PO SCH (20:24)
[2018-02-26] MEDS: OXcarbazepine 300 MG TABLET PO SCH ×2 (08:33→16:09)
[2018-02-26] MEDS: LORazepam 2 MG TABLET PO PRN (08:34)
[2018-02-26] MEDS: SODIUM CHLORIDE 1 GM TABLET PO SCH ×2 (08:34→16:08)
[2018-02-26] MEDS: DOCUSATE SODIUM 250 MG CAPSULE PO SCH ×2 (08:34→16:09)
[2018-02-26] MEDS: CITALOPRAM HYDROBROMIDE 10 MG TABLET PO SCH (08:34)
[2018-02-26] MEDS: PROPRANOLOL HCL 10 MG TABLET PO SCH ×2 (08:34→16:08)
[2018-02-26] MEDS: QUEtiapine FUMARATE 100 MG TABLET PO SCH ×3 (08:34→16:09)
[2018-02-26 08:44] VITALS: BP 127/80
[2018-02-26] MEDS: NICOTINE 21 MG/24 HOUR PATCH TD SCH (09:00)
[2018-02-26] MEDS ORDERED: CloZAPine 25 MG TABLET PO SCH (09:00)
[2018-02-26 16:23] VITALS: BP 121/74
[2018-02-26] MEDS: QUEtiapine FUMARATE 200 MG TABLET PO SCH (20:19)
[2018-02-26] MEDS ORDERED: CloZAPine 100 MG TABLET PO SCH (21:00)
[2018-02-27] MEDS: CITALOPRAM HYDROBROMIDE 10 MG TABLET PO SCH (07:56)
[2018-02-27] MEDS: DOCUSATE SODIUM 250 MG CAPSULE PO SCH ×2 (07:57→17:01)
[2018-02-27] MEDS: QUEtiapine FUMARATE 100 MG TABLET PO SCH ×3 (07:58→17:01)
[2018-02-27] MEDS: OXcarbazepine 300 MG TABLET PO SCH ×2 (07:58→17:01)
[2018-02-27] MEDS: SODIUM CHLORIDE 1 GM TABLET PO SCH ×2 (07:58→17:01)
[2018-02-27] MEDS: PROPRANOLOL HCL 10 MG TABLET PO SCH ×2 (07:58→17:01)
[2018-02-27] MEDS: NICOTINE 21 MG/24 HOUR PATCH TD SCH (08:02)
[2018-02-27 08:06] VITALS: BP 107/55
[2018-02-27] MEDS ORDERED: CloZAPine 25 MG TABLET PO SCH (09:00)
[2018-02-27 09:35] LABS: ANION GAP 8 mmol/L (8-16); CALCIUM, TOTAL 8.5 mg/dL (8.8-10.5); CARBON DIOXIDE 26 mmol/L (22-29); CHLORIDE 103 mmol/L (98-107); CREATININE 0.61 mg/dL (0.60-1.30); GLOMERULAR FILTR. RATE CALC > 60 mL/min (>60); GLUCOSE,RANDOM 85 mg/dL (70-110); POTASSIUM 4.1 mmol/L (3.5-5.1); SODIUM SERUM 137 mmol/L (136-145); UREA NITROGEN, BLOOD 12 mg/dL (7-18)
[2018-02-27] MEDS: LORazepam 2 MG TABLET PO PRN (13:07)
[2018-02-27 16:17] VITALS: BP 135/94
[2018-02-27] MEDS ORDERED: CloZAPine 100 MG TABLET PO SCH (21:00)
[2018-02-27] MEDS: QUEtiapine FUMARATE 200 MG TABLET PO SCH (21:31)
[2018-02-28] MEDS: QUEtiapine FUMARATE 100 MG TABLET PO SCH ×3 (09:25→17:20)
[2018-02-28] MEDS: DOCUSATE SODIUM 250 MG CAPSULE PO SCH ×2 (09:25→17:20)
[2018-02-28] MEDS: CloZAPine 100 MG TABLET PO SCH ×2 (09:25→20:29)
[2018-02-28] MEDS: PROPRANOLOL HCL 10 MG TABLET PO SCH ×2 (09:25→17:21)
[2018-02-28] MEDS: SODIUM CHLORIDE 1 GM TABLET PO SCH ×2 (09:26→17:21)
[2018-02-28] MEDS: CITALOPRAM HYDROBROMIDE 10 MG TABLET PO SCH (09:26)
[2018-02-28] MEDS: OXcarbazepine 300 MG TABLET PO SCH ×2 (09:26→17:21)
[2018-02-28] MEDS: NICOTINE 21 MG/24 HOUR PATCH TD SCH (09:31)
[2018-02-28 10:45] VITALS: BP 104/62
[2018-02-28] MEDS: LORazepam 2 MG TABLET PO PRN (14:22)
[2018-02-28 17:18] VITALS: BP 137/68
[2018-02-28] MEDS: QUEtiapine FUMARATE 200 MG TABLET PO SCH (20:29)
[2018-02-28] MEDS: ZOLPIDEM TARTRATE 10 MG TABLET PO PRN (20:29)
[2018-03-01 07:29] LABS: ANION GAP 7 mmol/L (8-16); CALCIUM, TOTAL 8.2 mg/dL (8.8-10.5); CARBON DIOXIDE 24 mmol/L (22-29); CHLORIDE 103 mmol/L (98-107); CREATININE 0.75 mg/dL (0.60-1.30); GLOMERULAR FILTR. RATE CALC > 60 mL/min (>60); GLUCOSE,RANDOM 88 mg/dL (70-110); SODIUM SERUM 134 mmol/L (136-145); UREA NITROGEN, BLOOD 11 mg/dL (7-18)
[2018-03-01 08:34] VITALS: BP 101/65
[2018-03-01] MEDS: DOCUSATE SODIUM 250 MG CAPSULE PO SCH ×2 (08:46→16:49)
[2018-03-01] MEDS: CloZAPine 100 MG TABLET PO SCH ×2 (08:46→20:04)
[2018-03-01] MEDS: PROPRANOLOL HCL 10 MG TABLET PO SCH ×2 (08:46→16:49)
[2018-03-01] MEDS: CITALOPRAM HYDROBROMIDE 10 MG TABLET PO SCH (08:46)
[2018-03-01] MEDS: OXcarbazepine 300 MG TABLET PO SCH ×2 (08:47→16:48)
[2018-03-01] MEDS: SODIUM CHLORIDE 1 GM TABLET PO SCH ×2 (08:47→16:48)
[2018-03-01] MEDS: QUEtiapine FUMARATE 100 MG TABLET PO SCH ×3 (08:48→16:49)
[2018-03-01] MEDS: NICOTINE 21 MG/24 HOUR PATCH TD SCH (08:52)
[2018-03-01 16:31] VITALS: BP 115/85
[2018-03-01] MEDS: LORazepam 2 MG TABLET PO PRN (18:30)
[2018-03-01] MEDS: QUEtiapine FUMARATE 200 MG TABLET PO SCH (20:04)
[2018-03-01] MEDS: ZOLPIDEM TARTRATE 10 MG TABLET PO PRN (20:05)
[2018-03-02 06:10] LABS: BASOPHILS % (AUTO) 0.3 % (0.0-2.0); EOSINOPHILS % (AUTO) 0 % (1.0-6.0); HEMATOCRIT 39.1 % (36-46); HEMOGLOBIN 13.7 g/dL (12.0-16.0); LYMPHOCYTES # (AUTO) 1.8 K/uL (1.0-4.8); LYMPHOCYTES % (AUTO) 41.9 % (22.0-44.0); MEAN CORPUSCULAR HEMOGLOBIN 33.3 pg (26.0-34.0); MEAN CORPUSCULAR VOLUME 95 fL (80-100); MONOCYTES # (AUTO) 0.7 K/uL (0.1-1.0); MONOCYTES % (AUTO) 15.3 % (2.0-9.0); NEUTROPHILS # (AUTO) 1.8 K/uL (1.8-7.7); NEUTROPHILS % (AUTO) 42.5 % (40.0-70.0); PLATELET COUNT (AUTO) 196 K/uL (150-450); RED BLOOD CELL COUNT(AUTO) 4.12 MIL/uL (4.00-5.20)
[2018-03-02 10:41] VITALS: BP 127/86
[2018-03-02] MEDS: CITALOPRAM HYDROBROMIDE 10 MG TABLET PO SCH (10:52)
[2018-03-02] MEDS: QUEtiapine FUMARATE 100 MG TABLET PO SCH ×3 (10:53→17:14)
[2018-03-02] MEDS: PROPRANOLOL HCL 10 MG TABLET PO SCH ×2 (10:53→17:13)
[2018-03-02] MEDS: DOCUSATE SODIUM 250 MG CAPSULE PO SCH ×2 (10:53→17:13)
[2018-03-02] MEDS: SODIUM CHLORIDE 1 GM TABLET PO SCH ×2 (10:53→17:13)
[2018-03-02] MEDS: CloZAPine 100 MG TABLET PO SCH ×2 (10:53→20:11)
[2018-03-02] MEDS: NICOTINE 21 MG/24 HOUR PATCH TD SCH (10:54)
[2018-03-02] MEDS: OXcarbazepine 300 MG TABLET PO SCH ×2 (10:54→17:14)
[2018-03-02 16:05] VITALS: BP 123/81
[2018-03-02] MEDS: QUEtiapine FUMARATE 200 MG TABLET PO SCH (20:11)
[2018-03-02] MEDS: ZOLPIDEM TARTRATE 10 MG TABLET PO PRN (20:46)
[2018-03-03 08:50] VITALS: BP 110/61
[2018-03-03] MEDS: DOCUSATE SODIUM 250 MG CAPSULE PO SCH ×2 (09:21→16:48)
[2018-03-03] MEDS: CITALOPRAM HYDROBROMIDE 10 MG TABLET PO SCH (09:21)
[2018-03-03] MEDS: CloZAPine 100 MG TABLET PO SCH ×2 (09:21→20:13)
[2018-03-03] MEDS: SODIUM CHLORIDE 1 GM TABLET PO SCH ×2 (09:22→16:49)
[2018-03-03] MEDS: NICOTINE 21 MG/24 HOUR PATCH TD SCH (09:22)
[2018-03-03] MEDS: QUEtiapine FUMARATE 100 MG TABLET PO SCH ×3 (09:22→16:49)
[2018-03-03] MEDS: OXcarbazepine 300 MG TABLET PO SCH ×2 (09:22→16:49)
[2018-03-03] MEDS: PROPRANOLOL HCL 10 MG TABLET PO SCH ×2 (09:22→16:49)
[2018-03-03] MEDS: LORazepam 2 MG TABLET PO PRN (12:41)
[2018-03-03 16:20] VITALS: BP 121/79
[2018-03-03] MEDS: QUEtiapine FUMARATE 200 MG TABLET PO SCH (20:13)
[2018-03-03] MEDS: ZOLPIDEM TARTRATE 10 MG TABLET PO PRN (20:45)
[2018-03-04 07:29] LABS: ANION GAP 12 mmol/L (8-16); CALCIUM, TOTAL 8.6 mg/dL (8.8-10.5); CARBON DIOXIDE 23 mmol/L (22-29); CHLORIDE 101 mmol/L (98-107); CREATININE 0.71 mg/dL (0.60-1.30); GLOMERULAR FILTR. RATE CALC > 60 mL/min (>60); GLUCOSE,RANDOM 87 mg/dL (70-110); POTASSIUM 4.1 mmol/L (3.5-5.1); SODIUM SERUM 136 mmol/L (136-145); UREA NITROGEN, BLOOD 11 mg/dL (7-18)
[2018-03-04] MEDS: PROPRANOLOL HCL 10 MG TABLET PO SCH ×2 (08:17→16:22)
[2018-03-04] MEDS: QUEtiapine FUMARATE 100 MG TABLET PO SCH ×3 (08:17→16:22)
[2018-03-04] MEDS: OXcarbazepine 300 MG TABLET PO SCH ×2 (08:17→16:22)
[2018-03-04] MEDS: CITALOPRAM HYDROBROMIDE 10 MG TABLET PO SCH (08:18)
[2018-03-04] MEDS: SODIUM CHLORIDE 1 GM TABLET PO SCH ×2 (08:18→16:22)
[2018-03-04] MEDS: DOCUSATE SODIUM 250 MG CAPSULE PO SCH ×2 (08:18→16:23)
[2018-03-04] MEDS: CloZAPine 100 MG TABLET PO SCH ×2 (08:18→20:35)
[2018-03-04] MEDS: NICOTINE 21 MG/24 HOUR PATCH TD SCH (08:19)
[2018-03-04 09:29] VITALS: BP 118/78
[2018-03-04 17:05] VITALS: BP 127/75
[2018-03-04] MEDS: QUEtiapine FUMARATE 200 MG TABLET PO SCH (20:34)
[2018-03-04] MEDS: ZOLPIDEM TARTRATE 10 MG TABLET PO PRN (21:01)
[2018-03-05] MEDS: OXcarbazepine 300 MG TABLET PO SCH ×2 (08:30→17:05)
[2018-03-05] MEDS: CloZAPine 100 MG TABLET PO SCH ×2 (08:30→20:30)
[2018-03-05] MEDS: SODIUM CHLORIDE 1 GM TABLET PO SCH ×2 (08:31→17:05)
[2018-03-05] MEDS: PROPRANOLOL HCL 10 MG TABLET PO SCH ×2 (08:31→17:05)
[2018-03-05] MEDS: DOCUSATE SODIUM 250 MG CAPSULE PO SCH ×2 (08:31→17:05)
[2018-03-05] MEDS: QUEtiapine FUMARATE 100 MG TABLET PO SCH ×3 (08:31→17:05)
[2018-03-05] MEDS: CITALOPRAM HYDROBROMIDE 10 MG TABLET PO SCH (08:32)
[2018-03-05] MEDS: NICOTINE 21 MG/24 HOUR PATCH TD SCH (08:33)
[2018-03-05 08:55] VITALS: BP 112/67
[2018-03-05] MEDS: QUEtiapine FUMARATE 200 MG TABLET PO SCH (20:30)
[2018-03-05] MEDS: ZOLPIDEM TARTRATE 10 MG TABLET PO PRN (21:08)
[2018-03-06 08:22] LABS: ANION GAP 11 mmol/L (8-16); CALCIUM, TOTAL 8.7 mg/dL (8.8-10.5); CARBON DIOXIDE 25 mmol/L (22-29); CHLORIDE 101 mmol/L (98-107); CREATININE 0.65 mg/dL (0.60-1.30); GLOMERULAR FILTR. RATE CALC > 60 mL/min (>60); GLUCOSE,RANDOM 91 mg/dL (70-110); POTASSIUM 4.1 mmol/L (3.5-5.1); SODIUM SERUM 137 mmol/L (136-145); UREA NITROGEN, BLOOD 11 mg/dL (7-18)
[2018-03-06 08:30] VITALS: BP 115/74
[2018-03-06] MEDS: CITALOPRAM HYDROBROMIDE 10 MG TABLET PO SCH (09:08)
[2018-03-06] MEDS: DOCUSATE SODIUM 250 MG CAPSULE PO SCH ×2 (09:08→17:00)
[2018-03-06] MEDS: SODIUM CHLORIDE 1 GM TABLET PO SCH ×2 (09:08→17:00)
[2018-03-06] MEDS: PROPRANOLOL HCL 10 MG TABLET PO SCH ×2 (09:08→16:47)
[2018-03-06] MEDS: CloZAPine 100 MG TABLET PO SCH ×2 (09:08→20:22)
[2018-03-06] MEDS: OXcarbazepine 300 MG TABLET PO SCH ×2 (09:09→16:47)
[2018-03-06] MEDS: NICOTINE 21 MG/24 HOUR PATCH TD SCH (09:09)
[2018-03-06] MEDS: QUEtiapine FUMARATE 100 MG TABLET PO SCH ×3 (09:09→16:47)
[2018-03-06 16:00] VITALS: BP 124/78
[2018-03-06] MEDS: ZOLPIDEM TARTRATE 10 MG TABLET PO PRN (20:21)
[2018-03-06] MEDS: QUEtiapine FUMARATE 200 MG TABLET PO SCH (20:21)
[2018-03-07] MEDS: QUEtiapine FUMARATE 100 MG TABLET PO SCH ×3 (08:34→16:55)
[2018-03-07] MEDS: DOCUSATE SODIUM 250 MG CAPSULE PO SCH ×2 (08:34→16:55)
[2018-03-07] MEDS: CloZAPine 100 MG TABLET PO SCH ×2 (08:34→20:17)
[2018-03-07] MEDS: OXcarbazepine 300 MG TABLET PO SCH ×2 (08:34→16:55)
[2018-03-07] MEDS: PROPRANOLOL HCL 10 MG TABLET PO SCH ×2 (08:34→16:55)
[2018-03-07] MEDS: CITALOPRAM HYDROBROMIDE 10 MG TABLET PO SCH (08:35)
[2018-03-07] MEDS: SODIUM CHLORIDE 1 GM TABLET PO SCH ×2 (08:35→16:55)
[2018-03-07] MEDS: NICOTINE 21 MG/24 HOUR PATCH TD SCH (08:39)
[2018-03-07 16:22] VITALS: BP 119/78
[2018-03-07] MEDS: QUEtiapine FUMARATE 200 MG TABLET PO SCH (20:17)
[2018-03-08 09:02] VITALS: BP 109/67
[2018-03-08] MEDS: CITALOPRAM HYDROBROMIDE 10 MG TABLET PO SCH (09:25)
[2018-03-08] MEDS: SODIUM CHLORIDE 1 GM TABLET PO SCH ×2 (09:25→16:59)
[2018-03-08] MEDS: PROPRANOLOL HCL 10 MG TABLET PO SCH ×2 (09:28→16:59)
[2018-03-08] MEDS: QUEtiapine FUMARATE 100 MG TABLET PO SCH ×3 (09:28→16:59)
[2018-03-08] MEDS: OXcarbazepine 300 MG TABLET PO SCH ×2 (09:28→16:59)
[2018-03-08] MEDS: NICOTINE 21 MG/24 HOUR PATCH TD SCH (09:28)
[2018-03-08] MEDS: OLANZapine 5 MG TABLET PO PRN (09:28)
[2018-03-08] MEDS: CloZAPine 100 MG TABLET PO SCH ×2 (09:29→20:41)
[2018-03-08] MEDS: DOCUSATE SODIUM 250 MG CAPSULE PO SCH ×2 (09:29→16:59)
[2018-03-08 16:06] VITALS: BP 117/81
[2018-03-08] MEDS: LORazepam 2 MG TABLET PO PRN (17:00)
[2018-03-08] MEDS: QUEtiapine FUMARATE 200 MG TABLET PO SCH (20:41)
[2018-03-08] MEDS: ZOLPIDEM TARTRATE 10 MG TABLET PO PRN (20:41)
[2018-03-09 06:29] LABS: ANION GAP 10 mmol/L (8-16); CALCIUM, TOTAL 8.7 mg/dL (8.8-10.5); CARBON DIOXIDE 26 mmol/L (22-29); CHLORIDE 105 mmol/L (98-107); CREATININE 0.82 mg/dL (0.60-1.30); GLOMERULAR FILTR. RATE CALC > 60 mL/min (>60); GLUCOSE,RANDOM 89 mg/dL (70-110); POTASSIUM 4.1 mmol/L (3.5-5.1); SODIUM SERUM 141 mmol/L (136-145); UREA NITROGEN, BLOOD 17 mg/dL (7-18)
[2018-03-09 07:44] LABS: BASOPHILS % (AUTO) 0.3 % (0.0-2.0); EOSINOPHILS % (AUTO) 0 % (1.0-6.0); HEMATOCRIT 38.9 % (36-46); HEMOGLOBIN 13.3 g/dL (12.0-16.0); LYMPHOCYTES # (AUTO) 1.8 K/uL (1.0-4.8); MEAN CORPUSCULAR HEMOGLOBIN 32.6 pg (26.0-34.0); MEAN CORPUSCULAR HGB CONC 34.2 G/dL (31.0-37.0); MEAN CORPUSCULAR VOLUME 95 fL (80-100); MONOCYTES # (AUTO) 0.7 K/uL (0.1-1.0); MONOCYTES % (AUTO) 13.1 % (2.0-9.0); NEUTROPHILS % (AUTO) 54.6 % (40.0-70.0); PLATELET COUNT (AUTO) 231 K/uL (150-450); RED BLOOD CELL COUNT(AUTO) 4.08 MIL/uL (4.00-5.20)
[2018-03-09] MEDS: DOCUSATE SODIUM 250 MG CAPSULE PO SCH ×2 (08:50→16:51)
[2018-03-09] MEDS: PROPRANOLOL HCL 10 MG TABLET PO SCH ×2 (08:50→16:50)
[2018-03-09] MEDS: OXcarbazepine 300 MG TABLET PO SCH ×2 (08:50→16:50)
[2018-03-09] MEDS: SODIUM CHLORIDE 1 GM TABLET PO SCH (08:51)
[2018-03-09] MEDS: CloZAPine 100 MG TABLET PO SCH ×2 (08:51→20:37)
[2018-03-09] MEDS: CITALOPRAM HYDROBROMIDE 10 MG TABLET PO SCH (08:51)
[2018-03-09] MEDS: QUEtiapine FUMARATE 100 MG TABLET PO SCH ×3 (08:51→16:51)
[2018-03-09] MEDS: NICOTINE 21 MG/24 HOUR PATCH TD SCH (08:52)
[2018-03-09 14:38] VITALS: BP 111/67
[2018-03-09 16:08] VITALS: BP 119/78
[2018-03-09] MEDS: QUEtiapine FUMARATE 200 MG TABLET PO SCH (20:37)
[2018-03-09] MEDS: ZOLPIDEM TARTRATE 10 MG TABLET PO PRN (20:37)
[2018-03-10 08:15] VITALS: BP 111/61
[2018-03-10] MEDS: PROPRANOLOL HCL 10 MG TABLET PO SCH ×2 (09:43→16:06)
[2018-03-10] MEDS: OXcarbazepine 300 MG TABLET PO SCH ×2 (09:45→16:06)
[2018-03-10] MEDS: QUEtiapine FUMARATE 100 MG TABLET PO SCH ×3 (09:45→16:06)
[2018-03-10] MEDS: OLANZapine 5 MG TABLET PO PRN ×2 (09:45→17:25)
[2018-03-10] MEDS: CloZAPine 100 MG TABLET PO SCH ×2 (09:45→21:15)
[2018-03-10] MEDS: NICOTINE 21 MG/24 HOUR PATCH TD SCH (09:47)
[2018-03-10] MEDS: CITALOPRAM HYDROBROMIDE 10 MG TABLET PO SCH (09:55)
[2018-03-10] MEDS: SODIUM CHLORIDE 1 GM TABLET PO SCH (09:55)
[2018-03-10] MEDS: DOCUSATE SODIUM 250 MG CAPSULE PO SCH ×2 (09:56→16:06)
[2018-03-10 16:47] VITALS: BP 118/79
[2018-03-10] MEDS: LORazepam 2 MG TABLET PO PRN (17:25)
[2018-03-10] MEDS: QUEtiapine FUMARATE 200 MG TABLET PO SCH (21:15)
[2018-03-11 09:30] VITALS: BP 116/64
[2018-03-11] MEDS: CloZAPine 100 MG TABLET PO SCH ×2 (10:45→21:05)
[2018-03-11] MEDS: NICOTINE 21 MG/24 HOUR PATCH TD SCH (10:45)
[2018-03-11] MEDS: OXcarbazepine 300 MG TABLET PO SCH ×2 (10:45→17:52)
[2018-03-11] MEDS: CITALOPRAM HYDROBROMIDE 10 MG TABLET PO SCH (10:45)
[2018-03-11] MEDS: SODIUM CHLORIDE 1 GM TABLET PO SCH (10:45)
[2018-03-11] MEDS: QUEtiapine FUMARATE 100 MG TABLET PO SCH ×3 (10:45→17:52)
[2018-03-11] MEDS: DOCUSATE SODIUM 250 MG CAPSULE PO SCH ×2 (10:45→17:53)
[2018-03-11] MEDS: PROPRANOLOL HCL 10 MG TABLET PO SCH ×2 (10:45→17:52)
[2018-03-11 16:42] VITALS: BP 111/71
[2018-03-11] MEDS: QUEtiapine FUMARATE 200 MG TABLET PO SCH (21:05)
[2018-03-11] MEDS: ZOLPIDEM TARTRATE 10 MG TABLET PO PRN (21:05)
[2018-03-12 06:32] LABS: ANION GAP 8 mmol/L (8-16); CALCIUM, TOTAL 8.5 mg/dL (8.8-10.5); CARBON DIOXIDE 27 mmol/L (22-29); CHLORIDE 104 mmol/L (98-107); CREATININE 0.71 mg/dL (0.60-1.30); GLOMERULAR FILTR. RATE CALC > 60 mL/min (>60); GLUCOSE,RANDOM 88 mg/dL (70-110); POTASSIUM 4.3 mmol/L (3.5-5.1); SODIUM SERUM 139 mmol/L (136-145); UREA NITROGEN, BLOOD 15 mg/dL (7-18)
[2018-03-12] MEDS: PROPRANOLOL HCL 10 MG TABLET PO SCH ×2 (08:33→17:10)
[2018-03-12] MEDS: SODIUM CHLORIDE 1 GM TABLET PO SCH (08:33)
[2018-03-12] MEDS: CITALOPRAM HYDROBROMIDE 10 MG TABLET PO SCH (08:33)
[2018-03-12] MEDS: QUEtiapine FUMARATE 100 MG TABLET PO SCH ×3 (08:33→17:11)
[2018-03-12] MEDS: CloZAPine 100 MG TABLET PO SCH ×2 (08:33→20:13)
[2018-03-12] MEDS: OXcarbazepine 300 MG TABLET PO SCH ×2 (08:34→17:11)
[2018-03-12] MEDS: DOCUSATE SODIUM 250 MG CAPSULE PO SCH ×2 (08:34→17:11)
[2018-03-12] MEDS: NICOTINE 21 MG/24 HOUR PATCH TD SCH (08:35)
[2018-03-12] MEDS: OLANZapine 5 MG TABLET PO PRN (08:35)
[2018-03-12 10:22] VITALS: BP 140/80
[2018-03-12 16:00] VITALS: BP 129/74
[2018-03-12] MEDS: QUEtiapine FUMARATE 200 MG TABLET PO SCH (20:13)
[2018-03-12] MEDS: ZOLPIDEM TARTRATE 10 MG TABLET PO PRN (21:06)
[2018-03-13] MEDS: OXcarbazepine 300 MG TABLET PO SCH ×2 (08:51→17:06)
[2018-03-13] MEDS: CloZAPine 100 MG TABLET PO SCH ×2 (08:51→21:01)
[2018-03-13] MEDS: CITALOPRAM HYDROBROMIDE 10 MG TABLET PO SCH (08:51)
[2018-03-13] MEDS: PROPRANOLOL HCL 10 MG TABLET PO SCH ×2 (08:51→17:05)
[2018-03-13] MEDS: DOCUSATE SODIUM 250 MG CAPSULE PO SCH ×2 (08:51→17:05)
[2018-03-13] MEDS: SODIUM CHLORIDE 1 GM TABLET PO SCH (08:51)
[2018-03-13] MEDS: QUEtiapine FUMARATE 100 MG TABLET PO SCH ×3 (08:51→17:05)
[2018-03-13] MEDS: NICOTINE 21 MG/24 HOUR PATCH TD SCH (09:04)
[2018-03-13 13:18] VITALS: BP 105/63
[2018-03-13 16:11] VITALS: BP 131/88
[2018-03-13] MEDS: ZOLPIDEM TARTRATE 10 MG TABLET PO PRN (21:01)
[2018-03-13] MEDS: QUEtiapine FUMARATE 200 MG TABLET PO SCH (21:01)
[2018-03-14 10:55] VITALS: BP 142/74
[2018-03-14] MEDS: CloZAPine 100 MG TABLET PO SCH ×2 (10:59→20:12)
[2018-03-14] MEDS: QUEtiapine FUMARATE 100 MG TABLET PO SCH ×3 (10:59→17:05)
[2018-03-14] MEDS: OXcarbazepine 300 MG TABLET PO SCH ×2 (10:59→17:05)
[2018-03-14] MEDS: DOCUSATE SODIUM 250 MG CAPSULE PO SCH ×2 (10:59→17:05)
[2018-03-14] MEDS: PROPRANOLOL HCL 10 MG TABLET PO SCH ×2 (10:59→17:05)
[2018-03-14] MEDS: CITALOPRAM HYDROBROMIDE 10 MG TABLET PO SCH (11:00)
[2018-03-14] MEDS: SODIUM CHLORIDE 1 GM TABLET PO SCH (11:00)
[2018-03-14] MEDS: NICOTINE 21 MG/24 HOUR PATCH TD SCH (12:01)
[2018-03-14 16:09] VITALS: BP 132/82
[2018-03-14] MEDS: QUEtiapine FUMARATE 200 MG TABLET PO SCH (20:13)
[2018-03-15 09:14] VITALS: BP 116/78
[2018-03-15] MEDS: SODIUM CHLORIDE 1 GM TABLET PO SCH (09:21)
[2018-03-15] MEDS: QUEtiapine FUMARATE 100 MG TABLET PO SCH ×3 (09:21→17:10)
[2018-03-15] MEDS: OXcarbazepine 300 MG TABLET PO SCH ×2 (09:21→17:10)
[2018-03-15] MEDS: PROPRANOLOL HCL 10 MG TABLET PO SCH ×2 (09:21→17:10)
[2018-03-15] MEDS: DOCUSATE SODIUM 250 MG CAPSULE PO SCH ×2 (09:21→17:10)
[2018-03-15] MEDS: CloZAPine 100 MG TABLET PO SCH ×2 (09:21→20:19)
[2018-03-15] MEDS: CITALOPRAM HYDROBROMIDE 10 MG TABLET PO SCH (09:21)
[2018-03-15] MEDS: NICOTINE 21 MG/24 HOUR PATCH TD SCH (09:26)
[2018-03-15] MEDS: OLANZapine 5 MG TABLET PO PRN (12:04)
[2018-03-15] MEDS: LORazepam 2 MG TABLET PO PRN (12:04)
[2018-03-15 16:03] VITALS: BP 123/78
[2018-03-15] MEDS: QUEtiapine FUMARATE 200 MG TABLET PO SCH (20:19)
[2018-03-16] MEDS: PROPRANOLOL HCL 10 MG TABLET PO SCH ×2 (09:52→17:36)
[2018-03-16] MEDS: CloZAPine 100 MG TABLET PO SCH ×2 (09:52→21:17)
[2018-03-16] MEDS: DOCUSATE SODIUM 250 MG CAPSULE PO SCH ×2 (09:52→17:36)
[2018-03-16] MEDS: QUEtiapine FUMARATE 100 MG TABLET PO SCH ×3 (09:52→17:36)
[2018-03-16] MEDS: SODIUM CHLORIDE 1 GM TABLET PO SCH (09:52)
[2018-03-16] MEDS: OXcarbazepine 300 MG TABLET PO SCH ×2 (09:53→17:36)
[2018-03-16] MEDS: CITALOPRAM HYDROBROMIDE 10 MG TABLET PO SCH (09:53)
[2018-03-16] MEDS: NICOTINE 21 MG/24 HOUR PATCH TD SCH (09:58)
[2018-03-16 10:06] LABS: EOSINOPHILS % (AUTO) 0 % (1.0-6.0); HEMATOCRIT 39.5 % (36-46); HEMOGLOBIN 13.7 g/dL (12.0-16.0); LYMPHOCYTES # (AUTO) 1.5 K/uL (1.0-4.8); LYMPHOCYTES % (AUTO) 33.4 % (22.0-44.0); MEAN CORPUSCULAR HEMOGLOBIN 32.6 pg (26.0-34.0); MEAN CORPUSCULAR HGB CONC 34.7 G/dL (31.0-37.0); MEAN CORPUSCULAR VOLUME 94 fL (80-100); MONOCYTES # (AUTO) 0.6 K/uL (0.1-1.0); MONOCYTES % (AUTO) 13.5 % (2.0-9.0); NEUTROPHILS # (AUTO) 2.4 K/uL (1.8-7.7); NEUTROPHILS % (AUTO) 53.1 % (40.0-70.0); PLATELET COUNT (AUTO) 253 K/uL (150-450); RED CELL DISTRIBUTION WIDTH 13.2 % (11.5-14.5)
[2018-03-16] MEDS: OLANZapine 5 MG TABLET PO PRN (11:45)
[2018-03-16] MEDS: LORazepam 2 MG TABLET PO PRN (11:45)
[2018-03-16 16:10] VITALS: BP 126/78
[2018-03-16] MEDS: ZOLPIDEM TARTRATE 10 MG TABLET PO PRN (21:17)
[2018-03-16] MEDS: QUEtiapine FUMARATE 200 MG TABLET PO SCH (21:17)
[2018-03-17 07:34] LABS: ANION GAP 8 mmol/L (8-16); CALCIUM, TOTAL 8.9 mg/dL (8.8-10.5); CARBON DIOXIDE 27 mmol/L (22-29); CHLORIDE 107 mmol/L (98-107); CREATININE 0.78 mg/dL (0.60-1.30); GLOMERULAR FILTR. RATE CALC > 60 mL/min (>60); GLUCOSE,RANDOM 93 mg/dL (70-110); POTASSIUM 4.2 mmol/L (3.5-5.1); SODIUM SERUM 142 mmol/L (136-145); UREA NITROGEN, BLOOD 17 mg/dL (7-18)
[2018-03-17] MEDS: CloZAPine 100 MG TABLET PO SCH ×2 (10:00→19:54)
[2018-03-17] MEDS: PROPRANOLOL HCL 10 MG TABLET PO SCH ×2 (10:00→15:55)
[2018-03-17] MEDS: CITALOPRAM HYDROBROMIDE 10 MG TABLET PO SCH (10:00)
[2018-03-17] MEDS: OXcarbazepine 300 MG TABLET PO SCH ×2 (10:00→15:55)
[2018-03-17] MEDS: QUEtiapine FUMARATE 100 MG TABLET PO SCH ×3 (10:00→15:55)
[2018-03-17] MEDS: SODIUM CHLORIDE 1 GM TABLET PO SCH (10:00)
[2018-03-17] MEDS: DOCUSATE SODIUM 250 MG CAPSULE PO SCH ×2 (10:01→15:55)
[2018-03-17] MEDS: NICOTINE 21 MG/24 HOUR PATCH TD SCH (10:04)
[2018-03-17 14:26] VITALS: BP 124/81
[2018-03-17] MEDS: LORazepam 2 MG TABLET PO PRN (15:55)
[2018-03-17 16:00] VITALS: BP 116/68
[2018-03-17] MEDS: QUEtiapine FUMARATE 200 MG TABLET PO SCH (19:53)
[2018-03-17] MEDS: ZOLPIDEM TARTRATE 10 MG TABLET PO PRN (19:54)
[2018-03-18] MEDS: CloZAPine 100 MG TABLET PO SCH ×2 (09:03→21:18)
[2018-03-18] MEDS: PROPRANOLOL HCL 10 MG TABLET PO SCH ×2 (09:03→16:39)
[2018-03-18] MEDS: DOCUSATE SODIUM 250 MG CAPSULE PO SCH ×2 (09:03→16:39)
[2018-03-18] MEDS: QUEtiapine FUMARATE 100 MG TABLET PO SCH ×3 (09:03→16:39)
[2018-03-18] MEDS: OXcarbazepine 300 MG TABLET PO SCH ×2 (09:03→16:40)
[2018-03-18] MEDS: CITALOPRAM HYDROBROMIDE 10 MG TABLET PO SCH (09:05)
[2018-03-18] MEDS: SODIUM CHLORIDE 1 GM TABLET PO SCH (09:05)
[2018-03-18] MEDS: NICOTINE 21 MG/24 HOUR PATCH TD SCH (09:09)
[2018-03-18 12:10] VITALS: BP 126/72
[2018-03-18] MEDS: LORazepam 2 MG TABLET PO PRN ×2 (12:16→16:39)
[2018-03-18 16:35] VITALS: BP 127/84
[2018-03-18] MEDS: QUEtiapine FUMARATE 200 MG TABLET PO SCH (21:18)
[2018-03-19] MEDS: QUEtiapine FUMARATE 100 MG TABLET PO SCH ×3 (08:54→17:04)
[2018-03-19] MEDS: DOCUSATE SODIUM 250 MG CAPSULE PO SCH ×2 (08:54→17:04)
[2018-03-19] MEDS: CloZAPine 100 MG TABLET PO SCH ×2 (08:54→22:05)
[2018-03-19] MEDS: OXcarbazepine 300 MG TABLET PO SCH ×2 (08:54→17:04)
[2018-03-19] MEDS: CITALOPRAM HYDROBROMIDE 10 MG TABLET PO SCH (08:54)
[2018-03-19] MEDS: SODIUM CHLORIDE 1 GM TABLET PO SCH (08:54)
[2018-03-19] MEDS: NICOTINE 21 MG/24 HOUR PATCH TD SCH (08:54)
[2018-03-19] MEDS: PROPRANOLOL HCL 10 MG TABLET PO SCH ×2 (08:54→17:04)
[2018-03-19] MEDS: LORazepam 2 MG TABLET PO PRN (12:44)
[2018-03-19] MEDS: QUEtiapine FUMARATE 200 MG TABLET PO SCH (22:05)
[2018-03-20] MEDS: CloZAPine 100 MG TABLET PO SCH ×2 (08:52→20:22)
[2018-03-20] MEDS: CITALOPRAM HYDROBROMIDE 10 MG TABLET PO SCH (08:53)
[2018-03-20] MEDS: SODIUM CHLORIDE 1 GM TABLET PO SCH (08:53)
[2018-03-20] MEDS: PROPRANOLOL HCL 10 MG TABLET PO SCH ×2 (08:53→17:04)
[2018-03-20] MEDS: DOCUSATE SODIUM 250 MG CAPSULE PO SCH ×2 (08:53→17:04)
[2018-03-20] MEDS: OXcarbazepine 300 MG TABLET PO SCH ×2 (08:53→17:05)
[2018-03-20] MEDS: QUEtiapine FUMARATE 100 MG TABLET PO SCH ×3 (08:53→17:04)
[2018-03-20] MEDS: LORazepam 2 MG TABLET PO PRN ×2 (08:54→17:05)
[2018-03-20] MEDS: OLANZapine 5 MG TABLET PO PRN ×2 (08:54→17:05)
[2018-03-20] MEDS: NICOTINE 21 MG/24 HOUR PATCH TD SCH (09:00)
[2018-03-20 12:19] VITALS: BP 126/72
[2018-03-20] MEDS: QUEtiapine FUMARATE 200 MG TABLET PO SCH (20:22)
[2018-03-20] MEDS: ZOLPIDEM TARTRATE 10 MG TABLET PO PRN (20:23)
[2018-03-21 06:48] LABS: ANION GAP 9 mmol/L (8-16); CALCIUM, TOTAL 8.5 mg/dL (8.8-10.5); CARBON DIOXIDE 25 mmol/L (22-29); CHLORIDE 102 mmol/L (98-107); CREATININE 0.74 mg/dL (0.60-1.30); GLOMERULAR FILTR. RATE CALC > 60 mL/min (>60); GLUCOSE,RANDOM 85 mg/dL (70-110); POTASSIUM 4.2 mmol/L (3.5-5.1); SODIUM SERUM 136 mmol/L (136-145); UREA NITROGEN, BLOOD 11 mg/dL (7-18)
[2018-03-21] MEDS: CloZAPine 100 MG TABLET PO SCH ×2 (08:06→20:17)
[2018-03-21] MEDS: SODIUM CHLORIDE 1 GM TABLET PO SCH (08:07)
[2018-03-21] MEDS: QUEtiapine FUMARATE 100 MG TABLET PO SCH ×3 (08:07→16:27)
[2018-03-21] MEDS: OXcarbazepine 300 MG TABLET PO SCH ×2 (08:07→16:27)
[2018-03-21] MEDS: DOCUSATE SODIUM 250 MG CAPSULE PO SCH ×2 (08:07→16:25)
[2018-03-21] MEDS: PROPRANOLOL HCL 10 MG TABLET PO SCH ×2 (08:07→16:26)
[2018-03-21] MEDS: CITALOPRAM HYDROBROMIDE 10 MG TABLET PO SCH (08:08)
[2018-03-21] MEDS: NICOTINE 21 MG/24 HOUR PATCH TD SCH (08:08)
[2018-03-21 08:41] VITALS: BP 104/62
[2018-03-21 16:01] VITALS: BP 119/78
[2018-03-21] MEDS: LORazepam 2 MG TABLET PO PRN (16:26)
[2018-03-21] MEDS: QUEtiapine FUMARATE 200 MG TABLET PO SCH (20:17)
[2018-03-21] MEDS: ZOLPIDEM TARTRATE 10 MG TABLET PO PRN (20:17)
[2018-03-22] MEDS: PROPRANOLOL HCL 10 MG TABLET PO SCH ×2 (08:07→15:33)
[2018-03-22] MEDS: OXcarbazepine 300 MG TABLET PO SCH ×2 (08:07→15:33)
[2018-03-22] MEDS: QUEtiapine FUMARATE 100 MG TABLET PO SCH ×3 (08:08→15:32)
[2018-03-22] MEDS: CloZAPine 100 MG TABLET PO SCH ×2 (08:08→20:11)
[2018-03-22] MEDS: CITALOPRAM HYDROBROMIDE 10 MG TABLET PO SCH (08:08)
[2018-03-22] MEDS: SODIUM CHLORIDE 1 GM TABLET PO SCH (08:08)
[2018-03-22] MEDS: DOCUSATE SODIUM 250 MG CAPSULE PO SCH ×2 (08:08→15:32)
[2018-03-22 08:09] VITALS: BP 115/80
[2018-03-22] MEDS: LORazepam 2 MG TABLET PO PRN (08:09)
[2018-03-22] MEDS: OLANZapine 5 MG TABLET PO PRN (08:09)
[2018-03-22] MEDS: NICOTINE 21 MG/24 HOUR PATCH TD SCH (09:00)
[2018-03-22 16:10] VITALS: BP 115/74
[2018-03-22] MEDS: ZOLPIDEM TARTRATE 10 MG TABLET PO PRN (20:11)
[2018-03-22] MEDS: QUEtiapine FUMARATE 200 MG TABLET PO SCH (20:11)
[2018-03-23 07:07] LABS: BASOPHILS % (AUTO) 0.1 % (0.0-2.0); EOSINOPHILS % (AUTO) 0 % (1.0-6.0); HEMATOCRIT 36.9 % (36-46); HEMOGLOBIN 13.2 g/dL (12.0-16.0); LYMPHOCYTES # (AUTO) 1.8 K/uL (1.0-4.8); LYMPHOCYTES % (AUTO) 31.4 % (22.0-44.0); MEAN CORPUSCULAR HEMOGLOBIN 33.1 pg (26.0-34.0); MEAN CORPUSCULAR HGB CONC 35.8 G/dL (31.0-37.0); MEAN CORPUSCULAR VOLUME 92 fL (80-100); MONOCYTES # (AUTO) 0.7 K/uL (0.1-1.0); MONOCYTES % (AUTO) 12.9 % (2.0-9.0); NEUTROPHILS # (AUTO) 3.2 K/uL (1.8-7.7); NEUTROPHILS % (AUTO) 55.6 % (40.0-70.0); PLATELET COUNT (AUTO) 235 K/uL (150-450); RED BLOOD CELL COUNT(AUTO) 3.99 MIL/uL (4.00-5.20); RED CELL DISTRIBUTION WIDTH 12.9 % (11.5-14.5)
[2018-03-23 08:00] VITALS: BP 120/70
[2018-03-23] MEDS: PROPRANOLOL HCL 10 MG TABLET PO SCH ×2 (08:33→17:15)
[2018-03-23] MEDS: CloZAPine 100 MG TABLET PO SCH ×2 (08:33→21:31)
[2018-03-23] MEDS: OXcarbazepine 300 MG TABLET PO SCH ×2 (08:33→17:15)
[2018-03-23] MEDS: SODIUM CHLORIDE 1 GM TABLET PO SCH (08:33)
[2018-03-23] MEDS: QUEtiapine FUMARATE 100 MG TABLET PO SCH ×3 (08:33→17:15)
[2018-03-23] MEDS: DOCUSATE SODIUM 250 MG CAPSULE PO SCH ×2 (08:33→17:15)
[2018-03-23] MEDS: CITALOPRAM HYDROBROMIDE 10 MG TABLET PO SCH (08:34)
[2018-03-23] MEDS: NICOTINE 21 MG/24 HOUR PATCH TD SCH (09:00)
[2018-03-23] MEDS: LORazepam 2 MG TABLET PO PRN (12:16)
[2018-03-23 16:27] VITALS: BP 119/78
[2018-03-23] MEDS: QUEtiapine FUMARATE 200 MG TABLET PO SCH (21:31)
[2018-03-24] MEDS: QUEtiapine FUMARATE 100 MG TABLET PO SCH ×3 (08:25→16:03)
[2018-03-24] MEDS: CITALOPRAM HYDROBROMIDE 10 MG TABLET PO SCH (08:26)
[2018-03-24] MEDS: LORazepam 2 MG TABLET PO PRN ×2 (08:26→16:02)
[2018-03-24] MEDS: OXcarbazepine 300 MG TABLET PO SCH ×2 (08:26→16:02)
[2018-03-24] MEDS: CloZAPine 100 MG TABLET PO SCH ×2 (08:26→20:13)
[2018-03-24] MEDS: SODIUM CHLORIDE 1 GM TABLET PO SCH (08:26)
[2018-03-24] MEDS: PROPRANOLOL HCL 10 MG TABLET PO SCH ×2 (08:26→16:02)
[2018-03-24] MEDS: DOCUSATE SODIUM 250 MG CAPSULE PO SCH ×2 (08:26→16:02)
[2018-03-24] MEDS: OLANZapine 5 MG TABLET PO PRN (08:27)
[2018-03-24] MEDS: NICOTINE 21 MG/24 HOUR PATCH TD SCH (09:00)
[2018-03-24 09:26] VITALS: BP 112/69
[2018-03-24 17:43] VITALS: BP 126/74
[2018-03-24] MEDS: ZOLPIDEM TARTRATE 10 MG TABLET PO PRN (20:13)
[2018-03-24] MEDS: QUEtiapine FUMARATE 200 MG TABLET PO SCH (20:13)
[2018-03-25 08:43] VITALS: BP 114/66
[2018-03-25] MEDS: NICOTINE 21 MG/24 HOUR PATCH TD SCH (09:00)
[2018-03-25] MEDS: OXcarbazepine 300 MG TABLET PO SCH ×2 (09:26→16:32)
[2018-03-25] MEDS: PROPRANOLOL HCL 10 MG TABLET PO SCH ×2 (09:26→16:31)
[2018-03-25] MEDS: SODIUM CHLORIDE 1 GM TABLET PO SCH (09:26)
[2018-03-25] MEDS: DOCUSATE SODIUM 250 MG CAPSULE PO SCH ×2 (09:27→16:32)
[2018-03-25] MEDS: QUEtiapine FUMARATE 100 MG TABLET PO SCH ×3 (09:27→16:32)
[2018-03-25] MEDS: CloZAPine 100 MG TABLET PO SCH ×2 (09:31→20:48)
[2018-03-25] MEDS: CITALOPRAM HYDROBROMIDE 10 MG TABLET PO SCH (09:31)
[2018-03-25 16:00] VITALS: BP 118/75
[2018-03-25] MEDS: OLANZapine 5 MG TABLET PO PRN (16:34)
[2018-03-25] MEDS: LORazepam 2 MG TABLET PO PRN (16:34)
[2018-03-25] MEDS: QUEtiapine FUMARATE 200 MG TABLET PO SCH (20:48)
[2018-03-25] MEDS: ZOLPIDEM TARTRATE 10 MG TABLET PO PRN (20:48)
[2018-03-26 08:18] VITALS: BP 120/83
[2018-03-26] MEDS: CITALOPRAM HYDROBROMIDE 10 MG TABLET PO SCH (08:42)
[2018-03-26] MEDS: SODIUM CHLORIDE 1 GM TABLET PO SCH (08:42)
[2018-03-26] MEDS: PROPRANOLOL HCL 10 MG TABLET PO SCH ×2 (08:44→16:32)
[2018-03-26] MEDS: CloZAPine 100 MG TABLET PO SCH ×2 (08:44→20:23)
[2018-03-26] MEDS: QUEtiapine FUMARATE 100 MG TABLET PO SCH ×3 (08:44→16:33)
[2018-03-26] MEDS: OXcarbazepine 300 MG TABLET PO SCH ×2 (08:44→16:32)
[2018-03-26] MEDS: NICOTINE 21 MG/24 HOUR PATCH TD SCH ×2 (08:45→08:52)
[2018-03-26] MEDS: DOCUSATE SODIUM 250 MG CAPSULE PO SCH ×2 (08:46→16:34)
[2018-03-26 18:00] VITALS: BP 106/63
[2018-03-26] MEDS: QUEtiapine FUMARATE 200 MG TABLET PO SCH (20:23)
[2018-03-26] MEDS: ZOLPIDEM TARTRATE 10 MG TABLET PO PRN (21:44)
[2018-03-27] MEDS: PROPRANOLOL HCL 10 MG TABLET PO SCH ×2 (08:16→16:20)
[2018-03-27] MEDS: CloZAPine 100 MG TABLET PO SCH ×2 (08:20→20:23)
[2018-03-27] MEDS: OXcarbazepine 300 MG TABLET PO SCH ×2 (08:22→16:21)
[2018-03-27] MEDS: DOCUSATE SODIUM 250 MG CAPSULE PO SCH ×2 (08:22→16:21)
[2018-03-27] MEDS: QUEtiapine FUMARATE 100 MG TABLET PO SCH ×3 (08:22→16:21)
[2018-03-27] MEDS: CITALOPRAM HYDROBROMIDE 10 MG TABLET PO SCH (08:23)
[2018-03-27] MEDS: NICOTINE 21 MG/24 HOUR PATCH TD SCH (08:23)
[2018-03-27] MEDS: SODIUM CHLORIDE 1 GM TABLET PO SCH (08:24)
[2018-03-27 09:22] VITALS: BP 101/63
[2018-03-27 17:29] VITALS: BP 123/83
[2018-03-27] MEDS: QUEtiapine FUMARATE 200 MG TABLET PO SCH (20:23)
[2018-03-27] MEDS: ZOLPIDEM TARTRATE 10 MG TABLET PO PRN (20:24)
[2018-03-28 09:36] VITALS: BP 124/64
[2018-03-28] MEDS: CITALOPRAM HYDROBROMIDE 10 MG TABLET PO SCH (10:10)
[2018-03-28] MEDS: CloZAPine 100 MG TABLET PO SCH ×2 (10:10→20:13)
[2018-03-28] MEDS: SODIUM CHLORIDE 1 GM TABLET PO SCH (10:11)
[2018-03-28] MEDS: PROPRANOLOL HCL 10 MG TABLET PO SCH ×2 (10:11→16:43)
[2018-03-28] MEDS: OXcarbazepine 300 MG TABLET PO SCH ×2 (10:11→16:43)
[2018-03-28] MEDS: DOCUSATE SODIUM 250 MG CAPSULE PO SCH ×2 (10:11→16:42)
[2018-03-28] MEDS: QUEtiapine FUMARATE 100 MG TABLET PO SCH ×3 (10:11→16:43)
[2018-03-28] MEDS: NICOTINE 21 MG/24 HOUR PATCH TD SCH (10:12)
[2018-03-28] MEDS: QUEtiapine FUMARATE 200 MG TABLET PO SCH (20:13)
[2018-03-28 20:48] VITALS: BP 122/64
[2018-03-29] MEDS: PROPRANOLOL HCL 10 MG TABLET PO SCH ×2 (08:44→16:10)
[2018-03-29] MEDS: OXcarbazepine 300 MG TABLET PO SCH ×2 (08:44→16:11)
[2018-03-29] MEDS: CloZAPine 100 MG TABLET PO SCH ×2 (08:45→20:09)
[2018-03-29] MEDS: DOCUSATE SODIUM 250 MG CAPSULE PO SCH ×2 (08:46→16:10)
[2018-03-29] MEDS: SODIUM CHLORIDE 1 GM TABLET PO SCH (08:46)
[2018-03-29] MEDS: QUEtiapine FUMARATE 100 MG TABLET PO SCH ×3 (08:46→16:11)
[2018-03-29] MEDS: CITALOPRAM HYDROBROMIDE 10 MG TABLET PO SCH (08:47)
[2018-03-29] MEDS: NICOTINE 21 MG/24 HOUR PATCH TD SCH (08:48)
[2018-03-29 09:02] VITALS: BP 129/91
[2018-03-29 16:29] VITALS: BP 132/80
[2018-03-29] MEDS: QUEtiapine FUMARATE 200 MG TABLET PO SCH (20:08)
[2018-03-30 06:35] LABS: EOSINOPHILS % (AUTO) 0 % (1.0-6.0); HEMATOCRIT 37.8 % (36-46); HEMOGLOBIN 13.4 g/dL (12.0-16.0); LYMPHOCYTES # (AUTO) 2.2 K/uL (1.0-4.8); LYMPHOCYTES % (AUTO) 25.9 % (22.0-44.0); MEAN CORPUSCULAR HEMOGLOBIN 32.9 pg (26.0-34.0); MEAN CORPUSCULAR HGB CONC 35.4 G/dL (31.0-37.0); MEAN CORPUSCULAR VOLUME 93 fL (80-100); MONOCYTES # (AUTO) 1.1 K/uL (0.1-1.0); MONOCYTES % (AUTO) 13.5 % (2.0-9.0); NEUTROPHILS # (AUTO) 5.1 K/uL (1.8-7.7); NEUTROPHILS % (AUTO) 60.6 % (40.0-70.0); PLATELET COUNT (AUTO) 218 K/uL (150-450); RED BLOOD CELL COUNT(AUTO) 4.07 MIL/uL (4.00-5.20); RED CELL DISTRIBUTION WIDTH 13.1 % (11.5-14.5)
[2018-03-30] MEDS: CITALOPRAM HYDROBROMIDE 10 MG TABLET PO SCH (08:26)
[2018-03-30] MEDS: CloZAPine 100 MG TABLET PO SCH ×2 (08:26→20:13)
[2018-03-30] MEDS: SODIUM CHLORIDE 1 GM TABLET PO SCH (08:27)
[2018-03-30] MEDS: PROPRANOLOL HCL 10 MG TABLET PO SCH ×2 (08:27→17:23)
[2018-03-30] MEDS: QUEtiapine FUMARATE 100 MG TABLET PO SCH ×3 (08:27→17:23)
[2018-03-30] MEDS: DOCUSATE SODIUM 250 MG CAPSULE PO SCH ×2 (08:27→17:23)
[2018-03-30] MEDS: OXcarbazepine 300 MG TABLET PO SCH ×2 (08:27→17:23)
[2018-03-30] MEDS: NICOTINE 21 MG/24 HOUR PATCH TD SCH (08:30)
[2018-03-30 09:24] VITALS: BP 102/59
[2018-03-30 17:51] VITALS: BP 128/86
[2018-03-30] MEDS: QUEtiapine FUMARATE 200 MG TABLET PO SCH (20:13)
[2018-03-30] MEDS: ZOLPIDEM TARTRATE 10 MG TABLET PO PRN (20:14)
[2018-03-31] MEDS: PROPRANOLOL HCL 10 MG TABLET PO SCH ×2 (09:53→16:17)
[2018-03-31] MEDS: CITALOPRAM HYDROBROMIDE 10 MG TABLET PO SCH (09:53)
[2018-03-31] MEDS: CloZAPine 100 MG TABLET PO SCH ×2 (09:53→20:38)
[2018-03-31] MEDS: DOCUSATE SODIUM 250 MG CAPSULE PO SCH ×2 (09:53→16:18)
[2018-03-31] MEDS: SODIUM CHLORIDE 1 GM TABLET PO SCH (09:54)
[2018-03-31] MEDS: QUEtiapine FUMARATE 100 MG TABLET PO SCH ×3 (09:54→16:17)
[2018-03-31] MEDS: NICOTINE 21 MG/24 HOUR PATCH TD SCH (09:55)
[2018-03-31] MEDS: OXcarbazepine 300 MG TABLET PO SCH ×2 (09:55→16:18)
[2018-03-31 12:36] VITALS: BP 136/84
[2018-03-31 16:00] VITALS: BP 118/77
[2018-03-31] MEDS: OLANZapine 5 MG TABLET PO PRN (16:49)
[2018-03-31] MEDS: LORazepam 2 MG TABLET PO PRN (16:49)
[2018-03-31] MEDS: QUEtiapine FUMARATE 200 MG TABLET PO SCH (20:37)
[2018-03-31] MEDS: ZOLPIDEM TARTRATE 10 MG TABLET PO PRN (20:38)
[2018-04-01 08:24] VITALS: BP 101/62
[2018-04-01] MEDS: SODIUM CHLORIDE 1 GM TABLET PO SCH (08:47)
[2018-04-01] MEDS: PROPRANOLOL HCL 10 MG TABLET PO SCH ×2 (08:47→16:27)
[2018-04-01] MEDS: DOCUSATE SODIUM 250 MG CAPSULE PO SCH ×2 (08:47→16:27)
[2018-04-01] MEDS: CloZAPine 100 MG TABLET PO SCH ×2 (08:48→20:19)
[2018-04-01] MEDS: QUEtiapine FUMARATE 100 MG TABLET PO SCH ×3 (08:49→16:27)
[2018-04-01] MEDS: OXcarbazepine 300 MG TABLET PO SCH ×2 (08:49→16:27)
[2018-04-01] MEDS: NICOTINE 21 MG/24 HOUR PATCH TD SCH (08:49)
[2018-04-01] MEDS: CITALOPRAM HYDROBROMIDE 10 MG TABLET PO SCH (08:50)
[2018-04-01] MEDS: QUEtiapine FUMARATE 200 MG TABLET PO SCH (20:19)
[2018-04-01 21:05] VITALS: BP 124/84
[2018-04-02] MEDS: CITALOPRAM HYDROBROMIDE 10 MG TABLET PO SCH (08:12)
[2018-04-02] MEDS: QUEtiapine FUMARATE 100 MG TABLET PO SCH ×3 (08:12→16:19)
[2018-04-02] MEDS: DOCUSATE SODIUM 250 MG CAPSULE PO SCH ×2 (08:12→16:18)
[2018-04-02] MEDS: SODIUM CHLORIDE 1 GM TABLET PO SCH (08:12)
[2018-04-02] MEDS: NICOTINE 21 MG/24 HOUR PATCH TD SCH (08:12)
[2018-04-02] MEDS: CloZAPine 100 MG TABLET PO SCH ×2 (08:13→20:09)
[2018-04-02] MEDS: PROPRANOLOL HCL 10 MG TABLET PO SCH ×2 (08:13→16:18)
[2018-04-02] MEDS: OXcarbazepine 300 MG TABLET PO SCH ×2 (08:14→16:19)
[2018-04-02 08:35] VITALS: BP 98/71
[2018-04-02 09:06] LABS: ANION GAP 8 mmol/L (8-16); CALCIUM, TOTAL 8.4 mg/dL (8.8-10.5); CARBON DIOXIDE 24 mmol/L (22-29); CHLORIDE 102 mmol/L (98-107); CREATININE 0.66 mg/dL (0.60-1.30); GLOMERULAR FILTR. RATE CALC > 60 mL/min (>60); GLUCOSE,RANDOM 90 mg/dL (70-110); POTASSIUM 3.7 mmol/L (3.5-5.1); SODIUM SERUM 134 mmol/L (136-145); UREA NITROGEN, BLOOD 10 mg/dL (7-18)
[2018-04-02] MEDS: QUEtiapine FUMARATE 200 MG TABLET PO SCH (20:09)
[2018-04-02 22:27] VITALS: BP 115/85
[2018-04-03] MEDS: OXcarbazepine 300 MG TABLET PO SCH ×2 (09:03→16:31)
[2018-04-03] MEDS: CITALOPRAM HYDROBROMIDE 10 MG TABLET PO SCH (09:03)
[2018-04-03] MEDS: PROPRANOLOL HCL 10 MG TABLET PO SCH ×2 (09:03→16:31)
[2018-04-03] MEDS: DOCUSATE SODIUM 250 MG CAPSULE PO SCH ×2 (09:03→16:31)
[2018-04-03] MEDS: CloZAPine 100 MG TABLET PO SCH ×2 (09:03→20:08)
[2018-04-03] MEDS: SODIUM CHLORIDE 1 GM TABLET PO SCH (09:03)
[2018-04-03] MEDS: QUEtiapine FUMARATE 100 MG TABLET PO SCH ×3 (09:03→16:31)
[2018-04-03] MEDS: NICOTINE 21 MG/24 HOUR PATCH TD SCH (09:04)
[2018-04-03 11:11] VITALS: BP 103/70
[2018-04-03 16:55] VITALS: BP 136/89
[2018-04-03] MEDS: QUEtiapine FUMARATE 200 MG TABLET PO SCH (20:09)
[2018-04-04 09:23] VITALS: BP 133/68
[2018-04-04] MEDS: CITALOPRAM HYDROBROMIDE 10 MG TABLET PO SCH (10:04)
[2018-04-04] MEDS: CloZAPine 100 MG TABLET PO SCH ×2 (10:04→20:49)
[2018-04-04] MEDS: DOCUSATE SODIUM 250 MG CAPSULE PO SCH ×2 (10:04→18:09)
[2018-04-04] MEDS: PROPRANOLOL HCL 10 MG TABLET PO SCH ×2 (10:04→18:09)
[2018-04-04] MEDS: SODIUM CHLORIDE 1 GM TABLET PO SCH (10:05)
[2018-04-04] MEDS: QUEtiapine FUMARATE 100 MG TABLET PO SCH ×3 (10:05→18:09)
[2018-04-04] MEDS: OXcarbazepine 300 MG TABLET PO SCH ×2 (10:05→18:09)
[2018-04-04] MEDS: NICOTINE 21 MG/24 HOUR PATCH TD SCH (10:06)
[2018-04-04] MEDS: QUEtiapine FUMARATE 200 MG TABLET PO SCH (20:49)
[2018-04-05 08:30] VITALS: BP 124/72
[2018-04-05] MEDS: NICOTINE 21 MG/24 HOUR PATCH TD SCH (09:00)
[2018-04-05] MEDS: CloZAPine 100 MG TABLET PO SCH ×2 (09:52→20:39)
[2018-04-05] MEDS: PROPRANOLOL HCL 10 MG TABLET PO SCH ×2 (09:52→17:27)
[2018-04-05] MEDS: QUEtiapine FUMARATE 100 MG TABLET PO SCH ×3 (09:52→17:27)
[2018-04-05] MEDS: SODIUM CHLORIDE 1 GM TABLET PO SCH (09:53)
[2018-04-05] MEDS: OXcarbazepine 300 MG TABLET PO SCH ×2 (09:53→17:27)
[2018-04-05] MEDS: CITALOPRAM HYDROBROMIDE 10 MG TABLET PO SCH (09:54)
[2018-04-05] MEDS: DOCUSATE SODIUM 250 MG CAPSULE PO SCH ×2 (09:56→17:27)
[2018-04-05 18:58] VITALS: BP 114/67
[2018-04-05] MEDS: QUEtiapine FUMARATE 200 MG TABLET PO SCH (20:39)
[2018-04-06] MEDS: CITALOPRAM HYDROBROMIDE 10 MG TABLET PO SCH (09:39)
[2018-04-06] MEDS: OXcarbazepine 300 MG TABLET PO SCH ×2 (09:40→16:09)
[2018-04-06] MEDS: CloZAPine 100 MG TABLET PO SCH ×2 (09:40→20:29)
[2018-04-06] MEDS: QUEtiapine FUMARATE 100 MG TABLET PO SCH ×3 (09:40→16:10)
[2018-04-06] MEDS: DOCUSATE SODIUM 250 MG CAPSULE PO SCH ×2 (09:40→16:10)
[2018-04-06] MEDS: SODIUM CHLORIDE 1 GM TABLET PO SCH (09:40)
[2018-04-06] MEDS: PROPRANOLOL HCL 10 MG TABLET PO SCH ×2 (09:40→16:10)
[2018-04-06] MEDS: NICOTINE 21 MG/24 HOUR PATCH TD SCH (09:41)
[2018-04-06 10:20] LABS: BASOPHILS % (AUTO) 0.1 % (0.0-2.0); EOSINOPHILS % (AUTO) 0 % (1.0-6.0); HEMATOCRIT 38.3 % (36-46); HEMOGLOBIN 13.4 g/dL (12.0-16.0); LYMPHOCYTES # (AUTO) 1.3 K/uL (1.0-4.8); LYMPHOCYTES % (AUTO) 33.6 % (22.0-44.0); MEAN CORPUSCULAR VOLUME 94 fL (80-100); MONOCYTES # (AUTO) 0.6 K/uL (0.1-1.0); NEUTROPHILS % (AUTO) 51.3 % (40.0-70.0); PLATELET COUNT (AUTO) 224 K/uL (150-450); RED BLOOD CELL COUNT(AUTO) 4.06 MIL/uL (4.00-5.20); RED CELL DISTRIBUTION WIDTH 13.2 % (11.5-14.5)
[2018-04-06 10:30] VITALS: BP 102/68
[2018-04-06 16:16] VITALS: BP 112/64
[2018-04-06] MEDS: QUEtiapine FUMARATE 200 MG TABLET PO SCH (20:29)
[2018-04-07] MEDS: NICOTINE 21 MG/24 HOUR PATCH TD SCH (09:00)
[2018-04-07] MEDS: OXcarbazepine 300 MG TABLET PO SCH ×2 (09:54→16:24)
[2018-04-07] MEDS: SODIUM CHLORIDE 1 GM TABLET PO SCH (09:54)
[2018-04-07] MEDS: CloZAPine 100 MG TABLET PO SCH ×2 (09:54→20:13)
[2018-04-07] MEDS: CITALOPRAM HYDROBROMIDE 10 MG TABLET PO SCH (09:54)
[2018-04-07] MEDS: DOCUSATE SODIUM 250 MG CAPSULE PO SCH ×2 (09:54→16:22)
[2018-04-07] MEDS: PROPRANOLOL HCL 10 MG TABLET PO SCH ×2 (09:54→16:22)
[2018-04-07] MEDS: QUEtiapine FUMARATE 100 MG TABLET PO SCH ×3 (09:54→16:22)
[2018-04-07 16:52] VITALS: BP 120/74
[2018-04-07] MEDS: LORazepam 2 MG TABLET PO PRN (17:29)
[2018-04-07] MEDS: QUEtiapine FUMARATE 200 MG TABLET PO SCH (20:14)
[2018-04-07] MEDS: ZOLPIDEM TARTRATE 10 MG TABLET PO PRN (20:38)
[2018-04-08 06:46] LABS: ANION GAP 7 mmol/L (8-16); CALCIUM, TOTAL 8.4 mg/dL (8.8-10.5); CARBON DIOXIDE 25 mmol/L (22-29); CHLORIDE 99 mmol/L (98-107); CREATININE 0.66 mg/dL (0.60-1.30); GLOMERULAR FILTR. RATE CALC > 60 mL/min (>60); GLUCOSE,RANDOM 87 mg/dL (70-110); POTASSIUM 3.5 mmol/L (3.5-5.1); SODIUM SERUM 131 mmol/L (136-145); UREA NITROGEN, BLOOD 9 mg/dL (7-18)
[2018-04-08] MEDS: NICOTINE 21 MG/24 HOUR PATCH TD SCH (09:00)
[2018-04-08] MEDS: QUEtiapine FUMARATE 100 MG TABLET PO SCH ×3 (09:53→16:02)
[2018-04-08] MEDS: DOCUSATE SODIUM 250 MG CAPSULE PO SCH ×2 (09:53→16:02)
[2018-04-08] MEDS: CloZAPine 100 MG TABLET PO SCH ×2 (09:53→20:31)
[2018-04-08] MEDS: CITALOPRAM HYDROBROMIDE 10 MG TABLET PO SCH (09:53)
[2018-04-08] MEDS: SODIUM CHLORIDE 1 GM TABLET PO SCH (09:53)
[2018-04-08] MEDS: OXcarbazepine 300 MG TABLET PO SCH ×2 (09:54→16:02)
[2018-04-08] MEDS: PROPRANOLOL HCL 10 MG TABLET PO SCH ×2 (12:51→16:02)
[2018-04-08 18:02] VITALS: BP 123/112
[2018-04-08] MEDS: QUEtiapine FUMARATE 200 MG TABLET PO SCH (20:31)
[2018-04-09] MEDS: CITALOPRAM HYDROBROMIDE 10 MG TABLET PO SCH (09:43)
[2018-04-09] MEDS: SODIUM CHLORIDE 1 GM TABLET PO SCH (09:43)
[2018-04-09] MEDS: OXcarbazepine 300 MG TABLET PO SCH ×2 (09:45→17:12)
[2018-04-09] MEDS: CloZAPine 100 MG TABLET PO SCH ×2 (09:46→20:58)
[2018-04-09] MEDS: OLANZapine 5 MG TABLET PO PRN (09:46)
[2018-04-09] MEDS: DOCUSATE SODIUM 250 MG CAPSULE PO SCH ×2 (09:46→17:12)
[2018-04-09] MEDS: NICOTINE 21 MG/24 HOUR PATCH TD SCH (09:46)
[2018-04-09] MEDS: QUEtiapine FUMARATE 100 MG TABLET PO SCH ×3 (09:46→17:12)
[2018-04-09] MEDS: PROPRANOLOL HCL 10 MG TABLET PO SCH ×2 (09:46→17:12)
[2018-04-09 18:11] VITALS: BP 125/78
[2018-04-09] MEDS: QUEtiapine FUMARATE 200 MG TABLET PO SCH (20:57)
[2018-04-10] MEDS: CITALOPRAM HYDROBROMIDE 10 MG TABLET PO SCH (08:51)
[2018-04-10] MEDS: CloZAPine 100 MG TABLET PO SCH ×2 (08:51→20:37)
[2018-04-10] MEDS: OXcarbazepine 300 MG TABLET PO SCH ×2 (08:54→18:29)
[2018-04-10] MEDS: PROPRANOLOL HCL 10 MG TABLET PO SCH ×2 (08:54→18:30)
[2018-04-10] MEDS: QUEtiapine FUMARATE 100 MG TABLET PO SCH ×3 (08:54→18:30)
[2018-04-10] MEDS: SODIUM CHLORIDE 1 GM TABLET PO SCH ×2 (08:54→18:29)
[2018-04-10] MEDS: DOCUSATE SODIUM 250 MG CAPSULE PO SCH ×2 (08:54→18:30)
[2018-04-10] MEDS: NICOTINE 21 MG/24 HOUR PATCH TD SCH (08:55)
[2018-04-10 14:19] VITALS: BP 118/72
[2018-04-10 16:45] VITALS: BP 127/83
[2018-04-10] MEDS: QUEtiapine FUMARATE 200 MG TABLET PO SCH (20:37)
[2018-04-11] MEDS: CITALOPRAM HYDROBROMIDE 10 MG TABLET PO SCH (09:43)
[2018-04-11] MEDS: DOCUSATE SODIUM 250 MG CAPSULE PO SCH ×2 (09:44→17:53)
[2018-04-11] MEDS: CloZAPine 100 MG TABLET PO SCH ×2 (09:44→20:28)
[2018-04-11] MEDS: SODIUM CHLORIDE 1 GM TABLET PO SCH ×2 (09:45→17:53)
[2018-04-11] MEDS: PROPRANOLOL HCL 10 MG TABLET PO SCH ×2 (09:45→17:53)
[2018-04-11] MEDS: OXcarbazepine 300 MG TABLET PO SCH ×2 (09:45→17:53)
[2018-04-11] MEDS: QUEtiapine FUMARATE 100 MG TABLET PO SCH ×3 (09:45→17:53)
[2018-04-11] MEDS: NICOTINE 21 MG/24 HOUR PATCH TD SCH (09:46)
[2018-04-11 16:00] VITALS: BP 119/75
[2018-04-11] MEDS: QUEtiapine FUMARATE 200 MG TABLET PO SCH (20:28)
[2018-04-12] MEDS: CITALOPRAM HYDROBROMIDE 10 MG TABLET PO SCH (09:42)
[2018-04-12] MEDS: SODIUM CHLORIDE 1 GM TABLET PO SCH ×2 (09:42→16:58)
[2018-04-12] MEDS: OLANZapine 5 MG TABLET PO PRN ×2 (09:43→13:54)
[2018-04-12] MEDS: OXcarbazepine 300 MG TABLET PO SCH ×2 (09:43→16:58)
[2018-04-12] MEDS: PROPRANOLOL HCL 10 MG TABLET PO SCH ×2 (09:44→16:58)
[2018-04-12] MEDS: QUEtiapine FUMARATE 100 MG TABLET PO SCH ×4 (09:44→16:58)
[2018-04-12] MEDS: CloZAPine 100 MG TABLET PO SCH ×2 (09:44→20:06)
[2018-04-12] MEDS: DOCUSATE SODIUM 250 MG CAPSULE PO SCH ×2 (09:44→16:58)
[2018-04-12] MEDS: NICOTINE 21 MG/24 HOUR PATCH TD SCH (09:47)
[2018-04-12 16:00] VITALS: BP 111/71
[2018-04-12] MEDS: QUEtiapine FUMARATE 200 MG TABLET PO SCH (20:06)
[2018-04-13 06:18] LABS: EOSINOPHILS % (AUTO) 0 % (1.0-6.0); HEMATOCRIT 37.8 % (36-46); HEMOGLOBIN 13.4 g/dL (12.0-16.0); LYMPHOCYTES # (AUTO) 2.3 K/uL (1.0-4.8); LYMPHOCYTES % (AUTO) 39.7 % (22.0-44.0); MEAN CORPUSCULAR HGB CONC 35.4 G/dL (31.0-37.0); MEAN CORPUSCULAR VOLUME 93 fL (80-100); MONOCYTES # (AUTO) 0.7 K/uL (0.1-1.0); MONOCYTES % (AUTO) 11.9 % (2.0-9.0); NEUTROPHILS # (AUTO) 2.8 K/uL (1.8-7.7); NEUTROPHILS % (AUTO) 48.4 % (40.0-70.0); PLATELET COUNT (AUTO) 236 K/uL (150-450); RED BLOOD CELL COUNT(AUTO) 4.06 MIL/uL (4.00-5.20); RED CELL DISTRIBUTION WIDTH 13.2 % (11.5-14.5)
[2018-04-13 06:43] LABS: ANION GAP 9 mmol/L (8-16); CALCIUM, TOTAL 8.5 mg/dL (8.8-10.5); CARBON DIOXIDE 25 mmol/L (22-29); CHLORIDE 98 mmol/L (98-107); CREATININE 0.66 mg/dL (0.60-1.30); GLOMERULAR FILTR. RATE CALC > 60 mL/min (>60); GLUCOSE,RANDOM 91 mg/dL (70-110); POTASSIUM 3.9 mmol/L (3.5-5.1); SODIUM SERUM 132 mmol/L (136-145); UREA NITROGEN, BLOOD 9 mg/dL (7-18)
[2018-04-13] MEDS: SODIUM CHLORIDE 1 GM TABLET PO SCH ×2 (08:11→16:31)
[2018-04-13] MEDS: PROPRANOLOL HCL 10 MG TABLET PO SCH ×2 (08:12→16:31)
[2018-04-13] MEDS: CloZAPine 100 MG TABLET PO SCH ×2 (08:12→20:25)
[2018-04-13] MEDS: DOCUSATE SODIUM 250 MG CAPSULE PO SCH ×2 (08:12→16:30)
[2018-04-13] MEDS: OXcarbazepine 300 MG TABLET PO SCH ×2 (08:12→16:30)
[2018-04-13] MEDS: QUEtiapine FUMARATE 100 MG TABLET PO SCH ×3 (08:12→16:30)
[2018-04-13] MEDS: CITALOPRAM HYDROBROMIDE 10 MG TABLET PO SCH (08:12)
[2018-04-13] MEDS: NICOTINE 21 MG/24 HOUR PATCH TD SCH (08:13)
[2018-04-13 16:17] VITALS: BP 110/73
[2018-04-13] MEDS: QUEtiapine FUMARATE 200 MG TABLET PO SCH (20:24)
[2018-04-14] MEDS: CITALOPRAM HYDROBROMIDE 10 MG TABLET PO SCH (09:18)
[2018-04-14] MEDS: SODIUM CHLORIDE 1 GM TABLET PO SCH ×2 (09:18→16:37)
[2018-04-14] MEDS: OXcarbazepine 300 MG TABLET PO SCH ×2 (09:19→16:37)
[2018-04-14] MEDS: CloZAPine 100 MG TABLET PO SCH ×2 (09:19→21:34)
[2018-04-14] MEDS: QUEtiapine FUMARATE 100 MG TABLET PO SCH ×3 (09:20→16:37)
[2018-04-14] MEDS: PROPRANOLOL HCL 10 MG TABLET PO SCH ×2 (09:20→16:37)
[2018-04-14] MEDS: NICOTINE 21 MG/24 HOUR PATCH TD SCH (09:20)
[2018-04-14] MEDS: DOCUSATE SODIUM 250 MG CAPSULE PO SCH ×2 (09:20→16:37)
[2018-04-14 17:41] VITALS: BP 120/67
[2018-04-14] MEDS: LORazepam 2 MG TABLET PO PRN (18:19)
[2018-04-14] MEDS: QUEtiapine FUMARATE 200 MG TABLET PO SCH (21:34)
[2018-04-15] MEDS: CloZAPine 100 MG TABLET PO SCH ×2 (08:27→20:13)
[2018-04-15] MEDS: DOCUSATE SODIUM 250 MG CAPSULE PO SCH ×2 (08:27→16:08)
[2018-04-15] MEDS: CITALOPRAM HYDROBROMIDE 10 MG TABLET PO SCH (08:28)
[2018-04-15] MEDS: OXcarbazepine 300 MG TABLET PO SCH ×2 (08:28→16:08)
[2018-04-15] MEDS: PROPRANOLOL HCL 10 MG TABLET PO SCH ×2 (08:28→16:08)
[2018-04-15] MEDS: SODIUM CHLORIDE 1 GM TABLET PO SCH ×2 (08:28→16:08)
[2018-04-15] MEDS: QUEtiapine FUMARATE 100 MG TABLET PO SCH ×4 (08:28→20:13)
[2018-04-15] MEDS: NICOTINE 21 MG/24 HOUR PATCH TD SCH (08:32)
[2018-04-15 18:24] VITALS: BP 117/81
[2018-04-15] MEDS: QUEtiapine FUMARATE 200 MG TABLET PO SCH (20:16)
[2018-04-16 06:56] LABS: ANION GAP 9 mmol/L (8-16); CALCIUM, TOTAL 8.9 mg/dL (8.8-10.5); CARBON DIOXIDE 25 mmol/L (22-29); CHLORIDE 103 mmol/L (98-107); CREATININE 0.76 mg/dL (0.60-1.30); GLOMERULAR FILTR. RATE CALC > 60 mL/min (>60); GLUCOSE,RANDOM 94 mg/dL (70-110); SODIUM SERUM 137 mmol/L (136-145); UREA NITROGEN, BLOOD 12 mg/dL (7-18)
[2018-04-16] MEDS: PROPRANOLOL HCL 10 MG TABLET PO SCH ×2 (09:00→16:37)
[2018-04-16] MEDS: CloZAPine 100 MG TABLET PO SCH ×2 (10:03→20:32)
[2018-04-16] MEDS: SODIUM CHLORIDE 1 GM TABLET PO SCH ×2 (10:03→16:36)
[2018-04-16] MEDS: DOCUSATE SODIUM 250 MG CAPSULE PO SCH ×2 (10:04→16:37)
[2018-04-16] MEDS: OXcarbazepine 300 MG TABLET PO SCH ×2 (10:04→16:37)
[2018-04-16] MEDS: CITALOPRAM HYDROBROMIDE 10 MG TABLET PO SCH (10:04)
[2018-04-16] MEDS: NICOTINE 21 MG/24 HOUR PATCH TD SCH (10:06)
[2018-04-16 10:39] VITALS: BP 98/59
[2018-04-16] MEDS: QUEtiapine FUMARATE 100 MG TABLET PO SCH ×2 (12:37→16:37)
[2018-04-16 16:21] VITALS: BP 128/81
[2018-04-16] MEDS: QUEtiapine FUMARATE 200 MG TABLET PO SCH (20:32)
[2018-04-17] MEDS: CITALOPRAM HYDROBROMIDE 10 MG TABLET PO SCH (08:27)
[2018-04-17] MEDS: SODIUM CHLORIDE 1 GM TABLET PO SCH ×2 (08:28→16:22)
[2018-04-17] MEDS: OXcarbazepine 300 MG TABLET PO SCH ×2 (08:31→16:22)
[2018-04-17] MEDS: DOCUSATE SODIUM 250 MG CAPSULE PO SCH ×2 (08:31→16:22)
[2018-04-17] MEDS: PROPRANOLOL HCL 10 MG TABLET PO SCH ×2 (08:32→16:22)
[2018-04-17] MEDS: CloZAPine 100 MG TABLET PO SCH ×2 (08:32→20:33)
[2018-04-17] MEDS: QUEtiapine FUMARATE 100 MG TABLET PO SCH ×3 (08:32→16:22)
[2018-04-17] MEDS: NICOTINE 21 MG/24 HOUR PATCH TD SCH (08:32)
[2018-04-17 08:45] VITALS: BP 103/61
[2018-04-17 16:22] VITALS: BP 118/77
[2018-04-17] MEDS: QUEtiapine FUMARATE 200 MG TABLET PO SCH (20:33)
[2018-04-18 08:00] VITALS: BP 115/71
[2018-04-18] MEDS: CITALOPRAM HYDROBROMIDE 10 MG TABLET PO SCH (08:31)
[2018-04-18] MEDS: SODIUM CHLORIDE 1 GM TABLET PO SCH ×2 (08:31→17:39)
[2018-04-18] MEDS: QUEtiapine FUMARATE 100 MG TABLET PO SCH ×3 (08:31→17:39)
[2018-04-18] MEDS: DOCUSATE SODIUM 250 MG CAPSULE PO SCH ×2 (08:31→17:39)
[2018-04-18] MEDS: CloZAPine 100 MG TABLET PO SCH ×2 (08:31→20:11)
[2018-04-18] MEDS: PROPRANOLOL HCL 10 MG TABLET PO SCH ×2 (08:31→17:39)
[2018-04-18] MEDS: OXcarbazepine 300 MG TABLET PO SCH ×2 (08:31→17:39)
[2018-04-18] MEDS: NICOTINE 21 MG/24 HOUR PATCH TD SCH (09:00)
[2018-04-18 16:30] VITALS: BP 107/73
[2018-04-18] MEDS: QUEtiapine FUMARATE 200 MG TABLET PO SCH (20:11)
[2018-04-18] MEDS: ZOLPIDEM TARTRATE 10 MG TABLET PO PRN (21:52)
[2018-04-18] MEDS: LORazepam 2 MG TABLET PO PRN (21:52)
[2018-04-19 08:00] VITALS: BP 112/71
[2018-04-19] MEDS: PROPRANOLOL HCL 10 MG TABLET PO SCH ×2 (08:34→16:48)
[2018-04-19] MEDS: OXcarbazepine 300 MG TABLET PO SCH ×2 (08:34→16:48)
[2018-04-19] MEDS: QUEtiapine FUMARATE 100 MG TABLET PO SCH ×3 (08:34→16:48)
[2018-04-19] MEDS: DOCUSATE SODIUM 250 MG CAPSULE PO SCH ×2 (08:34→16:48)
[2018-04-19] MEDS: SODIUM CHLORIDE 1 GM TABLET PO SCH ×2 (08:35→16:48)
[2018-04-19] MEDS: CITALOPRAM HYDROBROMIDE 10 MG TABLET PO SCH (08:35)
[2018-04-19] MEDS: CloZAPine 100 MG TABLET PO SCH ×2 (08:35→20:21)
[2018-04-19] MEDS: NICOTINE 21 MG/24 HOUR PATCH TD SCH (09:00)
[2018-04-19 16:52] VITALS: BP 117/73
[2018-04-19] MEDS: ZOLPIDEM TARTRATE 10 MG TABLET PO PRN (20:20)
[2018-04-19] MEDS: QUEtiapine FUMARATE 200 MG TABLET PO SCH (20:21)
[2018-04-20 06:08] LABS: EOSINOPHILS % (AUTO) 0 % (1.0-6.0); HEMATOCRIT 37.9 % (36-46); HEMOGLOBIN 13.3 g/dL (12.0-16.0); LYMPHOCYTES # (AUTO) 2.6 K/uL (1.0-4.8); LYMPHOCYTES % (AUTO) 45.5 % (22.0-44.0); MEAN CORPUSCULAR HEMOGLOBIN 32.7 pg (26.0-34.0); MEAN CORPUSCULAR HGB CONC 35.2 G/dL (31.0-37.0); MEAN CORPUSCULAR VOLUME 93 fL (80-100); MONOCYTES # (AUTO) 0.8 K/uL (0.1-1.0); MONOCYTES % (AUTO) 13.4 % (2.0-9.0); NEUTROPHILS # (AUTO) 2.4 K/uL (1.8-7.7); NEUTROPHILS % (AUTO) 41.1 % (40.0-70.0); PLATELET COUNT (AUTO) 254 K/uL (150-450); RED BLOOD CELL COUNT(AUTO) 4.08 MIL/uL (4.00-5.20); RED CELL DISTRIBUTION WIDTH 12.4 % (11.5-14.5)
[2018-04-20] MEDS: SODIUM CHLORIDE 1 GM TABLET PO SCH ×2 (08:01→17:16)
[2018-04-20] MEDS: DOCUSATE SODIUM 250 MG CAPSULE PO SCH ×2 (08:01→17:16)
[2018-04-20] MEDS: QUEtiapine FUMARATE 100 MG TABLET PO SCH ×3 (08:01→17:16)
[2018-04-20] MEDS: CITALOPRAM HYDROBROMIDE 10 MG TABLET PO SCH (08:01)
[2018-04-20] MEDS: CloZAPine 100 MG TABLET PO SCH ×2 (08:01→20:37)
[2018-04-20] MEDS: PROPRANOLOL HCL 10 MG TABLET PO SCH ×2 (08:01→17:16)
[2018-04-20] MEDS: OXcarbazepine 300 MG TABLET PO SCH ×2 (08:02→17:16)
[2018-04-20] MEDS: NICOTINE 21 MG/24 HOUR PATCH TD SCH (08:02)
[2018-04-20 08:57] VITALS: BP 126/72
[2018-04-20 16:21] VITALS: BP 111/73
[2018-04-20] MEDS: LORazepam 2 MG TABLET PO PRN ×2 (17:16→20:36)
[2018-04-20] MEDS: ZOLPIDEM TARTRATE 10 MG TABLET PO PRN (20:36)
[2018-04-20] MEDS: QUEtiapine FUMARATE 200 MG TABLET PO SCH (20:37)
[2018-04-21 08:00] VITALS: BP 112/68
[2018-04-21] MEDS: CITALOPRAM HYDROBROMIDE 10 MG TABLET PO SCH (08:37)
[2018-04-21] MEDS: OXcarbazepine 300 MG TABLET PO SCH ×2 (08:37→16:04)
[2018-04-21] MEDS: DOCUSATE SODIUM 250 MG CAPSULE PO SCH ×2 (08:37→16:03)
[2018-04-21] MEDS: QUEtiapine FUMARATE 100 MG TABLET PO SCH ×3 (08:37→16:04)
[2018-04-21] MEDS: SODIUM CHLORIDE 1 GM TABLET PO SCH ×2 (08:37→16:03)
[2018-04-21] MEDS: CloZAPine 100 MG TABLET PO SCH ×2 (08:38→20:05)
[2018-04-21] MEDS: PROPRANOLOL HCL 10 MG TABLET PO SCH ×2 (08:39→16:04)
[2018-04-21] MEDS: NICOTINE 21 MG/24 HOUR PATCH TD SCH (09:00)
[2018-04-21 16:51] VITALS: BP 113/82
[2018-04-21] MEDS: QUEtiapine FUMARATE 200 MG TABLET PO SCH (20:05)
[2018-04-22] MEDS: SODIUM CHLORIDE 1 GM TABLET PO SCH ×2 (09:45→17:11)
[2018-04-22] MEDS: NICOTINE 21 MG/24 HOUR PATCH TD SCH (09:45)
[2018-04-22] MEDS: OXcarbazepine 300 MG TABLET PO SCH ×2 (09:46→17:11)
[2018-04-22] MEDS: CITALOPRAM HYDROBROMIDE 10 MG TABLET PO SCH (09:46)
[2018-04-22] MEDS: CloZAPine 100 MG TABLET PO SCH ×2 (09:46→20:25)
[2018-04-22] MEDS: PROPRANOLOL HCL 10 MG TABLET PO SCH ×2 (09:46→17:11)
[2018-04-22] MEDS: QUEtiapine FUMARATE 100 MG TABLET PO SCH ×3 (09:46→17:11)
[2018-04-22] MEDS: DOCUSATE SODIUM 250 MG CAPSULE PO SCH ×2 (09:47→17:11)
[2018-04-22 16:54] VITALS: BP 117/76
[2018-04-22] MEDS: ZOLPIDEM TARTRATE 10 MG TABLET PO PRN (20:25)
[2018-04-22] MEDS: QUEtiapine FUMARATE 200 MG TABLET PO SCH (20:25)
[2018-04-23 06:23] LABS: ANION GAP 8 mmol/L (8-16); CALCIUM, TOTAL 8.4 mg/dL (8.8-10.5); CARBON DIOXIDE 25 mmol/L (22-29); CHLORIDE 101 mmol/L (98-107); CREATININE 0.76 mg/dL (0.60-1.30); GLOMERULAR FILTR. RATE CALC > 60 mL/min (>60); GLUCOSE,RANDOM 90 mg/dL (70-110); POTASSIUM 4.3 mmol/L (3.5-5.1); SODIUM SERUM 134 mmol/L (136-145); UREA NITROGEN, BLOOD 9 mg/dL (7-18)
[2018-04-23] MEDS: CloZAPine 100 MG TABLET PO SCH ×2 (08:51→20:39)
[2018-04-23] MEDS: QUEtiapine FUMARATE 100 MG TABLET PO SCH ×3 (08:51→16:24)
[2018-04-23] MEDS: DOCUSATE SODIUM 250 MG CAPSULE PO SCH ×2 (08:51→16:24)
[2018-04-23] MEDS: PROPRANOLOL HCL 10 MG TABLET PO SCH ×2 (08:51→16:24)
[2018-04-23] MEDS: OXcarbazepine 300 MG TABLET PO SCH ×2 (08:51→16:24)
[2018-04-23] MEDS: NICOTINE 21 MG/24 HOUR PATCH TD SCH (08:51)
[2018-04-23] MEDS: CITALOPRAM HYDROBROMIDE 10 MG TABLET PO SCH (08:52)
[2018-04-23] MEDS: SODIUM CHLORIDE 1 GM TABLET PO SCH ×2 (08:52→16:24)
[2018-04-23 16:00] VITALS: BP 113/68
[2018-04-23] MEDS: QUEtiapine FUMARATE 200 MG TABLET PO SCH (20:39)
[2018-04-24] MEDS: DOCUSATE SODIUM 250 MG CAPSULE PO SCH ×2 (08:03→17:18)
[2018-04-24] MEDS: SODIUM CHLORIDE 1 GM TABLET PO SCH ×2 (08:03→17:18)
[2018-04-24] MEDS: QUEtiapine FUMARATE 100 MG TABLET PO SCH ×3 (08:03→17:18)
[2018-04-24] MEDS: CITALOPRAM HYDROBROMIDE 10 MG TABLET PO SCH (08:03)
[2018-04-24] MEDS: CloZAPine 100 MG TABLET PO SCH ×2 (08:03→21:23)
[2018-04-24] MEDS: OXcarbazepine 300 MG TABLET PO SCH ×2 (08:03→17:18)
[2018-04-24] MEDS: PROPRANOLOL HCL 10 MG TABLET PO SCH ×2 (08:03→17:18)
[2018-04-24 08:56] VITALS: BP 109/70
[2018-04-24] MEDS: NICOTINE 21 MG/24 HOUR PATCH TD SCH (09:00)
[2018-04-24 17:17] VITALS: BP 123/73
[2018-04-24] MEDS: QUEtiapine FUMARATE 200 MG TABLET PO SCH (21:22)
[2018-04-25] MEDS: CloZAPine 100 MG TABLET PO SCH ×2 (08:23→20:20)
[2018-04-25] MEDS: QUEtiapine FUMARATE 100 MG TABLET PO SCH ×3 (08:23→17:56)
[2018-04-25] MEDS: CITALOPRAM HYDROBROMIDE 10 MG TABLET PO SCH (08:23)
[2018-04-25] MEDS: SODIUM CHLORIDE 1 GM TABLET PO SCH ×2 (08:23→17:57)
[2018-04-25] MEDS: OXcarbazepine 300 MG TABLET PO SCH ×2 (08:24→17:56)
[2018-04-25] MEDS: DOCUSATE SODIUM 250 MG CAPSULE PO SCH ×2 (08:25→17:56)
[2018-04-25] MEDS: PROPRANOLOL HCL 10 MG TABLET PO SCH ×2 (08:25→17:57)
[2018-04-25] MEDS: NICOTINE 21 MG/24 HOUR PATCH TD SCH (09:00)
[2018-04-25 09:06] VITALS: BP 109/65
[2018-04-25 16:55] VITALS: BP 111/75
[2018-04-25] MEDS: LORazepam 2 MG TABLET PO PRN (17:56)
[2018-04-25] MEDS: QUEtiapine FUMARATE 200 MG TABLET PO SCH (20:20)
[2018-04-26 06:34] LABS: ANION GAP 6 mmol/L (8-16); CALCIUM, TOTAL 8.8 mg/dL (8.8-10.5); CARBON DIOXIDE 30 mmol/L (22-29); CHLORIDE 102 mmol/L (98-107); GLOMERULAR FILTR. RATE CALC > 60 mL/min (>60); GLUCOSE,RANDOM 105 mg/dL (70-110); POTASSIUM 3.8 mmol/L (3.5-5.1); SODIUM SERUM 138 mmol/L (136-145); UREA NITROGEN, BLOOD 12 mg/dL (7-18)
[2018-04-26] MEDS: CloZAPine 100 MG TABLET PO SCH ×2 (08:49→22:07)
[2018-04-26] MEDS: CITALOPRAM HYDROBROMIDE 10 MG TABLET PO SCH (08:49)
[2018-04-26] MEDS: PROPRANOLOL HCL 10 MG TABLET PO SCH ×2 (08:49→17:45)
[2018-04-26] MEDS: DOCUSATE SODIUM 250 MG CAPSULE PO SCH ×2 (08:49→17:45)
[2018-04-26] MEDS: OXcarbazepine 300 MG TABLET PO SCH ×2 (08:49→17:45)
[2018-04-26] MEDS: QUEtiapine FUMARATE 100 MG TABLET PO SCH ×3 (08:49→17:45)
[2018-04-26] MEDS: SODIUM CHLORIDE 1 GM TABLET PO SCH ×2 (08:49→17:45)
[2018-04-26] MEDS: NICOTINE 21 MG/24 HOUR PATCH TD SCH (09:00)
[2018-04-26 09:57] VITALS: BP 126/76
[2018-04-26 19:20] VITALS: BP 125/81
[2018-04-26] MEDS: QUEtiapine FUMARATE 200 MG TABLET PO SCH (22:07)
[2018-04-27 06:23] LABS: EOSINOPHILS % (AUTO) 0 % (1.0-6.0); HEMATOCRIT 39.4 % (36-46); HEMOGLOBIN 13.9 g/dL (12.0-16.0); LYMPHOCYTES # (AUTO) 1.8 K/uL (1.0-4.8); MEAN CORPUSCULAR HEMOGLOBIN 33.4 pg (26.0-34.0); MEAN CORPUSCULAR HGB CONC 35.3 G/dL (31.0-37.0); MEAN CORPUSCULAR VOLUME 95 fL (80-100); MONOCYTES # (AUTO) 0.8 K/uL (0.1-1.0); MONOCYTES % (AUTO) 16.4 % (2.0-9.0); NEUTROPHILS # (AUTO) 2.1 K/uL (1.8-7.7); NEUTROPHILS % (AUTO) 44.6 % (40.0-70.0); PLATELET COUNT (AUTO) 238 K/uL (150-450); RED BLOOD CELL COUNT(AUTO) 4.17 MIL/uL (4.00-5.20); RED CELL DISTRIBUTION WIDTH 12.8 % (11.5-14.5)
[2018-04-27] MEDS: SODIUM CHLORIDE 1 GM TABLET PO SCH ×2 (09:24→16:51)
[2018-04-27] MEDS: CITALOPRAM HYDROBROMIDE 10 MG TABLET PO SCH (09:24)
[2018-04-27] MEDS: QUEtiapine FUMARATE 100 MG TABLET PO SCH ×3 (09:26→16:51)
[2018-04-27] MEDS: CloZAPine 100 MG TABLET PO SCH ×2 (09:26→20:40)
[2018-04-27] MEDS: PROPRANOLOL HCL 10 MG TABLET PO SCH ×2 (09:26→16:51)
[2018-04-27] MEDS: DOCUSATE SODIUM 250 MG CAPSULE PO SCH ×2 (09:26→16:51)
[2018-04-27] MEDS: OXcarbazepine 300 MG TABLET PO SCH ×2 (09:28→16:51)
[2018-04-27] MEDS: NICOTINE 21 MG/24 HOUR PATCH TD SCH (09:28)
[2018-04-27 16:44] VITALS: BP 117/75
[2018-04-27] MEDS: QUEtiapine FUMARATE 200 MG TABLET PO SCH (20:40)
[2018-04-28 08:00] VITALS: BP 106/72
[2018-04-28] MEDS: CITALOPRAM HYDROBROMIDE 10 MG TABLET PO SCH (08:38)
[2018-04-28] MEDS: DOCUSATE SODIUM 250 MG CAPSULE PO SCH ×2 (08:38→16:33)
[2018-04-28] MEDS: QUEtiapine FUMARATE 100 MG TABLET PO SCH ×3 (08:38→16:33)
[2018-04-28] MEDS: CloZAPine 100 MG TABLET PO SCH ×2 (08:38→20:12)
[2018-04-28] MEDS: OXcarbazepine 300 MG TABLET PO SCH ×2 (08:38→16:33)
[2018-04-28] MEDS: SODIUM CHLORIDE 1 GM TABLET PO SCH ×2 (08:38→16:33)
[2018-04-28] MEDS: PROPRANOLOL HCL 10 MG TABLET PO SCH ×2 (08:40→16:33)
[2018-04-28] MEDS: NICOTINE 21 MG/24 HOUR PATCH TD SCH (09:00)
[2018-04-28 16:46] VITALS: BP 126/87
[2018-04-28] MEDS: QUEtiapine FUMARATE 200 MG TABLET PO SCH (20:12)
[2018-04-29] MEDS: QUEtiapine FUMARATE 100 MG TABLET PO SCH ×3 (08:22→16:16)
[2018-04-29] MEDS: PROPRANOLOL HCL 10 MG TABLET PO SCH ×2 (08:22→16:16)
[2018-04-29] MEDS: CITALOPRAM HYDROBROMIDE 10 MG TABLET PO SCH (08:22)
[2018-04-29] MEDS: SODIUM CHLORIDE 1 GM TABLET PO SCH ×2 (08:22→16:16)
[2018-04-29] MEDS: DOCUSATE SODIUM 250 MG CAPSULE PO SCH ×2 (08:22→16:16)
[2018-04-29] MEDS: CloZAPine 100 MG TABLET PO SCH ×2 (08:22→20:28)
[2018-04-29] MEDS: OXcarbazepine 300 MG TABLET PO SCH ×2 (08:23→16:16)
[2018-04-29] MEDS: NICOTINE 21 MG/24 HOUR PATCH TD SCH (08:25)
[2018-04-29 09:05] VITALS: BP 115/79
[2018-04-29 16:26] VITALS: BP 126/80
[2018-04-29] MEDS: QUEtiapine FUMARATE 200 MG TABLET PO SCH (20:28)
[2018-04-30] MEDS: DOCUSATE SODIUM 250 MG CAPSULE PO SCH ×2 (08:47→16:27)
[2018-04-30] MEDS: QUEtiapine FUMARATE 100 MG TABLET PO SCH ×3 (08:47→16:27)
[2018-04-30] MEDS: CloZAPine 100 MG TABLET PO SCH ×2 (08:47→20:26)
[2018-04-30] MEDS: SODIUM CHLORIDE 1 GM TABLET PO SCH ×2 (08:47→16:26)
[2018-04-30] MEDS: OXcarbazepine 300 MG TABLET PO SCH ×2 (08:47→16:27)
[2018-04-30] MEDS: PROPRANOLOL HCL 10 MG TABLET PO SCH ×2 (08:47→16:29)
[2018-04-30] MEDS: CITALOPRAM HYDROBROMIDE 10 MG TABLET PO SCH (08:47)
[2018-04-30] MEDS: NICOTINE 21 MG/24 HOUR PATCH TD SCH (08:48)
[2018-04-30 16:48] VITALS: BP 124/72
[2018-04-30] MEDS: QUEtiapine FUMARATE 200 MG TABLET PO SCH (20:27)
[2018-05-01] MEDS: QUEtiapine FUMARATE 100 MG TABLET PO SCH ×3 (08:03→16:04)
[2018-05-01] MEDS: OXcarbazepine 300 MG TABLET PO SCH ×2 (08:03→16:04)
[2018-05-01] MEDS: DOCUSATE SODIUM 250 MG CAPSULE PO SCH ×2 (08:03→16:04)
[2018-05-01] MEDS: NICOTINE 21 MG/24 HOUR PATCH TD SCH (08:04)
[2018-05-01] MEDS: CloZAPine 100 MG TABLET PO SCH ×2 (08:04→20:15)
[2018-05-01] MEDS: PROPRANOLOL HCL 10 MG TABLET PO SCH ×2 (08:04→16:04)
[2018-05-01] MEDS: CITALOPRAM HYDROBROMIDE 10 MG TABLET PO SCH (08:04)
[2018-05-01] MEDS: SODIUM CHLORIDE 1 GM TABLET PO SCH ×2 (08:04→16:04)
[2018-05-01 08:48] VITALS: BP 122/67
[2018-05-01] MEDS: OLANZapine 5 MG TABLET PO PRN (10:55)
[2018-05-01 16:25] VITALS: BP 124/84
[2018-05-01] MEDS: QUEtiapine FUMARATE 200 MG TABLET PO SCH (20:14)
[2018-05-02 08:32] VITALS: BP 107/59
[2018-05-02] MEDS: SODIUM CHLORIDE 1 GM TABLET PO SCH ×2 (08:39→16:23)
[2018-05-02] MEDS: CITALOPRAM HYDROBROMIDE 10 MG TABLET PO SCH (08:39)
[2018-05-02] MEDS: NICOTINE 21 MG/24 HOUR PATCH TD SCH (08:42)
[2018-05-02] MEDS: QUEtiapine FUMARATE 100 MG TABLET PO SCH ×3 (08:42→16:22)
[2018-05-02] MEDS: CloZAPine 100 MG TABLET PO SCH ×2 (08:42→20:09)
[2018-05-02] MEDS: OXcarbazepine 300 MG TABLET PO SCH ×2 (08:42→16:22)
[2018-05-02] MEDS: DOCUSATE SODIUM 250 MG CAPSULE PO SCH ×2 (08:42→17:00)
[2018-05-02] MEDS: PROPRANOLOL HCL 10 MG TABLET PO SCH ×2 (08:42→16:23)
[2018-05-02] MEDS ORDERED: BISACODYL 10 MG RECTAL RECTAL SUPPOSITORY PR PRN (09:15)
[2018-05-02 16:29] VITALS: BP 126/80
[2018-05-02] MEDS: LACTULOSE 20 GM/30 ML SOLUTION UDCUP PO SCH (17:00)
[2018-05-02] MEDS: QUEtiapine FUMARATE 200 MG TABLET PO SCH (20:09)
[2018-05-03 09:00] VITALS: BP 108/64
[2018-05-03] MEDS: LACTULOSE 20 GM/30 ML SOLUTION UDCUP PO SCH ×3 (09:00→16:24)
[2018-05-03] MEDS: DOCUSATE SODIUM 250 MG CAPSULE PO SCH ×2 (09:34→16:24)
[2018-05-03] MEDS: QUEtiapine FUMARATE 100 MG TABLET PO SCH ×3 (09:35→16:24)
[2018-05-03] MEDS: CloZAPine 100 MG TABLET PO SCH ×2 (09:35→21:57)
[2018-05-03] MEDS: PROPRANOLOL HCL 10 MG TABLET PO SCH ×3 (09:35→16:24)
[2018-05-03] MEDS: CITALOPRAM HYDROBROMIDE 10 MG TABLET PO SCH (09:36)
[2018-05-03] MEDS: SODIUM CHLORIDE 1 GM TABLET PO SCH ×2 (09:36→16:25)
[2018-05-03] MEDS: NICOTINE 21 MG/24 HOUR PATCH TD SCH (09:37)
[2018-05-03] MEDS: OXcarbazepine 300 MG TABLET PO SCH ×2 (09:41→16:24)
[2018-05-03 16:01] VITALS: BP 120/68
[2018-05-03] MEDS: LORazepam 2 MG TABLET PO PRN (19:00)
[2018-05-03] MEDS: OLANZapine 5 MG TABLET PO PRN (19:01)
[2018-05-03] MEDS: QUEtiapine FUMARATE 200 MG TABLET PO SCH (21:57)
[2018-05-04 06:16] LABS: BASOPHILS % (AUTO) 0.1 % (0.0-2.0); EOSINOPHILS % (AUTO) 0 % (1.0-6.0); HEMATOCRIT 37.4 % (36-46); HEMOGLOBIN 13.2 g/dL (12.0-16.0); LYMPHOCYTES # (AUTO) 2.1 K/uL (1.0-4.8); LYMPHOCYTES % (AUTO) 26.5 % (22.0-44.0); MEAN CORPUSCULAR HEMOGLOBIN 33.4 pg (26.0-34.0); MEAN CORPUSCULAR HGB CONC 35.3 G/dL (31.0-37.0); MEAN CORPUSCULAR VOLUME 95 fL (80-100); MONOCYTES # (AUTO) 0.8 K/uL (0.1-1.0); NEUTROPHILS % (AUTO) 63.4 % (40.0-70.0); PLATELET COUNT (AUTO) 235 K/uL (150-450); RED BLOOD CELL COUNT(AUTO) 3.95 MIL/uL (4.00-5.20); RED CELL DISTRIBUTION WIDTH 12.7 % (11.5-14.5)
[2018-05-04 08:36] VITALS: BP 102/51
[2018-05-04] MEDS: LACTULOSE 20 GM/30 ML SOLUTION UDCUP PO SCH ×3 (09:00→16:05)
[2018-05-04] MEDS: DOCUSATE SODIUM 250 MG CAPSULE PO SCH ×2 (09:46→16:05)
[2018-05-04] MEDS: CloZAPine 100 MG TABLET PO SCH ×2 (09:47→21:07)
[2018-05-04] MEDS: PROPRANOLOL HCL 10 MG TABLET PO SCH ×2 (09:47→16:03)
[2018-05-04] MEDS: QUEtiapine FUMARATE 100 MG TABLET PO SCH ×3 (09:47→16:03)
[2018-05-04] MEDS: OXcarbazepine 300 MG TABLET PO SCH ×2 (09:47→16:03)
[2018-05-04] MEDS: NICOTINE 21 MG/24 HOUR PATCH TD SCH (09:48)
[2018-05-04] MEDS: SODIUM CHLORIDE 1 GM TABLET PO SCH ×2 (09:48→16:03)
[2018-05-04] MEDS: CITALOPRAM HYDROBROMIDE 10 MG TABLET PO SCH (09:48)
[2018-05-04 16:55] VITALS: BP 142/73
[2018-05-04] MEDS: QUEtiapine FUMARATE 200 MG TABLET PO SCH (21:06)
[2018-05-05] MEDS: NICOTINE 21 MG/24 HOUR PATCH TD SCH (08:43)
[2018-05-05] MEDS: LACTULOSE 20 GM/30 ML SOLUTION UDCUP PO SCH ×2 (08:44→15:59)
[2018-05-05] MEDS: QUEtiapine FUMARATE 100 MG TABLET PO SCH ×3 (08:44→15:59)
[2018-05-05] MEDS: DOCUSATE SODIUM 250 MG CAPSULE PO SCH ×2 (08:45→15:59)
[2018-05-05] MEDS: SODIUM CHLORIDE 1 GM TABLET PO SCH ×2 (08:45→15:59)
[2018-05-05] MEDS: CloZAPine 100 MG TABLET PO SCH ×2 (08:45→20:22)
[2018-05-05] MEDS: CITALOPRAM HYDROBROMIDE 10 MG TABLET PO SCH (08:46)
[2018-05-05] MEDS: OXcarbazepine 300 MG TABLET PO SCH ×2 (08:46→15:59)
[2018-05-05] MEDS: PROPRANOLOL HCL 10 MG TABLET PO SCH ×2 (08:46→15:59)
[2018-05-05 09:00] VITALS: BP 117/79
[2018-05-05 16:00] VITALS: BP 126/78
[2018-05-05] MEDS: OLANZapine 5 MG TABLET PO PRN (16:01)
[2018-05-05] MEDS: LORazepam 2 MG TABLET PO PRN (17:16)
[2018-05-05] MEDS: QUEtiapine FUMARATE 200 MG TABLET PO SCH (20:22)
[2018-05-06] MEDS: QUEtiapine FUMARATE 100 MG TABLET PO SCH ×3 (09:20→17:03)
[2018-05-06] MEDS: PROPRANOLOL HCL 10 MG TABLET PO SCH ×2 (09:20→17:03)
[2018-05-06] MEDS: SODIUM CHLORIDE 1 GM TABLET PO SCH ×2 (09:21→17:03)
[2018-05-06] MEDS: CloZAPine 100 MG TABLET PO SCH ×2 (09:21→20:27)
[2018-05-06] MEDS: CITALOPRAM HYDROBROMIDE 10 MG TABLET PO SCH (09:21)
[2018-05-06] MEDS: LACTULOSE 20 GM/30 ML SOLUTION UDCUP PO SCH ×2 (09:23→17:04)
[2018-05-06] MEDS: OXcarbazepine 300 MG TABLET PO SCH ×2 (09:23→17:03)
[2018-05-06] MEDS: DOCUSATE SODIUM 250 MG CAPSULE PO SCH ×2 (09:25→17:03)
[2018-05-06] MEDS: NICOTINE 21 MG/24 HOUR PATCH TD SCH (09:27)
[2018-05-06] MEDS: LORazepam 2 MG TABLET PO PRN (14:11)
[2018-05-06] MEDS: OLANZapine 5 MG TABLET PO PRN (14:11)
[2018-05-06 16:21] VITALS: BP 129/76
[2018-05-06] MEDS: QUEtiapine FUMARATE 200 MG TABLET PO SCH (20:27)
[2018-05-07] MEDS: LACTULOSE 20 GM/30 ML SOLUTION UDCUP PO SCH ×2 (09:48→16:37)
[2018-05-07] MEDS: OXcarbazepine 300 MG TABLET PO SCH ×2 (09:48→16:36)
[2018-05-07] MEDS: PROPRANOLOL HCL 10 MG TABLET PO SCH ×2 (09:48→16:36)
[2018-05-07] MEDS: NICOTINE 21 MG/24 HOUR PATCH TD SCH (09:48)
[2018-05-07] MEDS: CITALOPRAM HYDROBROMIDE 10 MG TABLET PO SCH (09:49)
[2018-05-07] MEDS: QUEtiapine FUMARATE 100 MG TABLET PO SCH ×3 (09:49→16:36)
[2018-05-07] MEDS: CloZAPine 100 MG TABLET PO SCH ×2 (09:49→20:05)
[2018-05-07] MEDS: DOCUSATE SODIUM 250 MG CAPSULE PO SCH ×2 (09:49→16:36)
[2018-05-07] MEDS: SODIUM CHLORIDE 1 GM TABLET PO SCH ×2 (09:49→16:36)
[2018-05-07 16:53] VITALS: BP 113/77
[2018-05-07] MEDS: QUEtiapine FUMARATE 200 MG TABLET PO SCH (20:05)
[2018-05-08] MEDS: NICOTINE 21 MG/24 HOUR PATCH TD SCH (09:00)
[2018-05-08] MEDS: LACTULOSE 20 GM/30 ML SOLUTION UDCUP PO SCH ×2 (09:00→17:00)
[2018-05-08 09:50] VITALS: BP 112/67
[2018-05-08] MEDS: DOCUSATE SODIUM 250 MG CAPSULE PO SCH ×2 (09:59→17:47)
[2018-05-08] MEDS: SODIUM CHLORIDE 1 GM TABLET PO SCH ×2 (09:59→17:46)
[2018-05-08] MEDS: CITALOPRAM HYDROBROMIDE 10 MG TABLET PO SCH (09:59)
[2018-05-08] MEDS: QUEtiapine FUMARATE 100 MG TABLET PO SCH ×3 (09:59→17:47)
[2018-05-08] MEDS: CloZAPine 100 MG TABLET PO SCH ×2 (10:00→20:16)
[2018-05-08] MEDS: OXcarbazepine 300 MG TABLET PO SCH ×2 (10:00→17:47)
[2018-05-08] MEDS: PROPRANOLOL HCL 10 MG TABLET PO SCH ×2 (10:01→17:48)
[2018-05-08 16:43] VITALS: BP 114/73
[2018-05-08] MEDS: QUEtiapine FUMARATE 200 MG TABLET PO SCH (20:16)
[2018-05-09] MEDS: OXcarbazepine 300 MG TABLET PO SCH ×2 (08:44→16:27)
[2018-05-09] MEDS: SODIUM CHLORIDE 1 GM TABLET PO SCH ×2 (08:44→16:27)
[2018-05-09] MEDS: CITALOPRAM HYDROBROMIDE 10 MG TABLET PO SCH (08:44)
[2018-05-09] MEDS: CloZAPine 100 MG TABLET PO SCH ×2 (08:44→20:30)
[2018-05-09] MEDS: PROPRANOLOL HCL 10 MG TABLET PO SCH ×2 (08:44→16:27)
[2018-05-09] MEDS: QUEtiapine FUMARATE 100 MG TABLET PO SCH ×3 (08:44→16:27)
[2018-05-09] MEDS: DOCUSATE SODIUM 250 MG CAPSULE PO SCH ×2 (08:44→16:27)
[2018-05-09] MEDS: NICOTINE 21 MG/24 HOUR PATCH TD SCH (08:51)
[2018-05-09] MEDS: LACTULOSE 20 GM/30 ML SOLUTION UDCUP PO SCH ×2 (08:52→16:27)
[2018-05-09 16:00] VITALS: BP 117/79
[2018-05-09] MEDS: QUEtiapine FUMARATE 200 MG TABLET PO SCH (20:29)
[2018-05-10] MEDS: NICOTINE 21 MG/24 HOUR PATCH TD SCH (09:00)
[2018-05-10] MEDS: PROPRANOLOL HCL 10 MG TABLET PO SCH ×3 (09:00→17:10)
[2018-05-10] MEDS: LACTULOSE 20 GM/30 ML SOLUTION UDCUP PO SCH ×2 (09:00→17:00)
[2018-05-10 10:20] VITALS: BP 111/56
[2018-05-10] MEDS: CITALOPRAM HYDROBROMIDE 10 MG TABLET PO SCH (10:23)
[2018-05-10] MEDS: QUEtiapine FUMARATE 100 MG TABLET PO SCH ×3 (10:24→17:10)
[2018-05-10] MEDS: DOCUSATE SODIUM 250 MG CAPSULE PO SCH ×2 (10:24→17:09)
[2018-05-10] MEDS: OXcarbazepine 300 MG TABLET PO SCH ×2 (10:24→17:10)
[2018-05-10] MEDS: CloZAPine 100 MG TABLET PO SCH ×2 (10:24→20:19)
[2018-05-10] MEDS: SODIUM CHLORIDE 1 GM TABLET PO SCH ×2 (10:24→17:11)
[2018-05-10 16:00] VITALS: BP 110/73
[2018-05-10] MEDS: QUEtiapine FUMARATE 200 MG TABLET PO SCH (20:19)
[2018-05-11 07:22] LABS: BASOPHILS % (AUTO) 0.1 % (0.0-2.0); EOSINOPHILS % (AUTO) 0 % (1.0-6.0); HEMATOCRIT 37.9 % (36-46); HEMOGLOBIN 13.2 g/dL (12.0-16.0); LYMPHOCYTES # (AUTO) 2.1 K/uL (1.0-4.8); LYMPHOCYTES % (AUTO) 41.7 % (22.0-44.0); MEAN CORPUSCULAR HEMOGLOBIN 32.9 pg (26.0-34.0); MEAN CORPUSCULAR HGB CONC 34.8 G/dL (31.0-37.0); MEAN CORPUSCULAR VOLUME 94 fL (80-100); MONOCYTES # (AUTO) 0.7 K/uL (0.1-1.0); MONOCYTES % (AUTO) 14.1 % (2.0-9.0); NEUTROPHILS # (AUTO) 2.2 K/uL (1.8-7.7); NEUTROPHILS % (AUTO) 44.1 % (40.0-70.0); PLATELET COUNT (AUTO) 254 K/uL (150-450); RED BLOOD CELL COUNT(AUTO) 4.01 MIL/uL (4.00-5.20); RED CELL DISTRIBUTION WIDTH 12.7 % (11.5-14.5)
[2018-05-11] MEDS: PROPRANOLOL HCL 10 MG TABLET PO SCH ×3 (09:00→16:06)
[2018-05-11] MEDS: LACTULOSE 20 GM/30 ML SOLUTION UDCUP PO SCH ×2 (09:00→16:06)
[2018-05-11 09:50] VITALS: BP 113/69
[2018-05-11] MEDS: CITALOPRAM HYDROBROMIDE 10 MG TABLET PO SCH (09:51)
[2018-05-11] MEDS: DOCUSATE SODIUM 250 MG CAPSULE PO SCH ×2 (09:52→16:05)
[2018-05-11] MEDS: CloZAPine 100 MG TABLET PO SCH ×2 (09:52→21:08)
[2018-05-11] MEDS: OXcarbazepine 300 MG TABLET PO SCH ×2 (09:53→16:05)
[2018-05-11] MEDS: SODIUM CHLORIDE 1 GM TABLET PO SCH ×2 (09:53→16:05)
[2018-05-11] MEDS: QUEtiapine FUMARATE 100 MG TABLET PO SCH ×3 (09:53→16:05)
[2018-05-11] MEDS: NICOTINE 21 MG/24 HOUR PATCH TD SCH (10:06)
[2018-05-11 16:17] VITALS: BP 109/66
[2018-05-11] MEDS: QUEtiapine FUMARATE 200 MG TABLET PO SCH (21:08)
[2018-05-12] MEDS: NICOTINE 21 MG/24 HOUR PATCH TD SCH (09:00)
[2018-05-12 09:30] VITALS: BP 139/80
[2018-05-12] MEDS: CITALOPRAM HYDROBROMIDE 10 MG TABLET PO SCH (09:33)
[2018-05-12] MEDS: CloZAPine 100 MG TABLET PO SCH ×2 (09:33→20:29)
[2018-05-12] MEDS: QUEtiapine FUMARATE 100 MG TABLET PO SCH ×3 (09:33→17:11)
[2018-05-12] MEDS: OXcarbazepine 300 MG TABLET PO SCH ×2 (09:33→17:11)
[2018-05-12] MEDS: LACTULOSE 20 GM/30 ML SOLUTION UDCUP PO SCH ×2 (09:34→17:11)
[2018-05-12] MEDS: DOCUSATE SODIUM 250 MG CAPSULE PO SCH ×2 (09:34→17:11)
[2018-05-12] MEDS: PROPRANOLOL HCL 10 MG TABLET PO SCH ×2 (09:34→17:11)
[2018-05-12] MEDS: SODIUM CHLORIDE 1 GM TABLET PO SCH ×2 (09:34→17:11)
[2018-05-12 16:00] VITALS: BP 106/64
[2018-05-12] MEDS: QUEtiapine FUMARATE 200 MG TABLET PO SCH (20:29)
[2018-05-13 07:03] LABS: ANION GAP 10 mmol/L (8-16); CALCIUM, TOTAL 8.4 mg/dL (8.8-10.5); CARBON DIOXIDE 24 mmol/L (22-29); CHLORIDE 100 mmol/L (98-107); CREATININE 0.71 mg/dL (0.60-1.30); GLOMERULAR FILTR. RATE CALC > 60 mL/min (>60); GLUCOSE,RANDOM 91 mg/dL (70-110); POTASSIUM 3.8 mmol/L (3.5-5.1); SODIUM SERUM 134 mmol/L (136-145); UREA NITROGEN, BLOOD 8 mg/dL (7-18)
[2018-05-13 09:00] VITALS: BP 125/76
[2018-05-13] MEDS: OXcarbazepine 300 MG TABLET PO SCH ×2 (09:28→16:28)
[2018-05-13] MEDS: LACTULOSE 20 GM/30 ML SOLUTION UDCUP PO SCH ×2 (09:28→16:30)
[2018-05-13] MEDS: SODIUM CHLORIDE 1 GM TABLET PO SCH ×2 (09:28→16:27)
[2018-05-13] MEDS: DOCUSATE SODIUM 250 MG CAPSULE PO SCH ×2 (09:28→16:28)
[2018-05-13] MEDS: CITALOPRAM HYDROBROMIDE 10 MG TABLET PO SCH (09:28)
[2018-05-13] MEDS: PROPRANOLOL HCL 10 MG TABLET PO SCH ×2 (09:29→16:28)
[2018-05-13] MEDS: QUEtiapine FUMARATE 100 MG TABLET PO SCH ×3 (09:29→16:28)
[2018-05-13] MEDS: CloZAPine 100 MG TABLET PO SCH ×2 (09:29→20:30)
[2018-05-13] MEDS: NICOTINE 21 MG/24 HOUR PATCH TD SCH (09:30)
[2018-05-13 17:09] VITALS: BP 128/72
[2018-05-13] MEDS: QUEtiapine FUMARATE 200 MG TABLET PO SCH (20:30)
[2018-05-14 08:00] VITALS: BP 126/70
[2018-05-14] MEDS: OXcarbazepine 300 MG TABLET PO SCH ×2 (08:26→16:17)
[2018-05-14] MEDS: QUEtiapine FUMARATE 100 MG TABLET PO SCH ×3 (08:26→16:17)
[2018-05-14] MEDS: DOCUSATE SODIUM 250 MG CAPSULE PO SCH ×2 (08:26→16:17)
[2018-05-14] MEDS: SODIUM CHLORIDE 1 GM TABLET PO SCH ×2 (08:26→16:17)
[2018-05-14] MEDS: CITALOPRAM HYDROBROMIDE 10 MG TABLET PO SCH (08:26)
[2018-05-14] MEDS: PROPRANOLOL HCL 10 MG TABLET PO SCH ×2 (08:26→16:17)
[2018-05-14] MEDS: OLANZapine 5 MG TABLET PO PRN (08:26)
[2018-05-14] MEDS: LORazepam 2 MG TABLET PO PRN (08:26)
[2018-05-14] MEDS: CloZAPine 100 MG TABLET PO SCH ×2 (08:27→21:59)
[2018-05-14] MEDS: LACTULOSE 20 GM/30 ML SOLUTION UDCUP PO SCH ×3 (08:28→16:17)
[2018-05-14] MEDS: NICOTINE 21 MG/24 HOUR PATCH TD SCH (09:00)
[2018-05-14] MEDS: BENZTROPINE MESYLATE 2 MG TABLET PO SCH (16:17)
[2018-05-14] MEDS: QUEtiapine FUMARATE 200 MG TABLET PO SCH (21:59)
[2018-05-15] MEDS: LACTULOSE 20 GM/30 ML SOLUTION UDCUP PO SCH ×3 (09:00→16:10)
[2018-05-15] MEDS: SODIUM CHLORIDE 1 GM TABLET PO SCH ×2 (09:59→16:11)
[2018-05-15] MEDS: CITALOPRAM HYDROBROMIDE 10 MG TABLET PO SCH (10:00)
[2018-05-15] MEDS: CloZAPine 100 MG TABLET PO SCH ×2 (10:04→20:11)
[2018-05-15] MEDS: BENZTROPINE MESYLATE 2 MG TABLET PO SCH ×2 (10:04→16:11)
[2018-05-15] MEDS: QUEtiapine FUMARATE 100 MG TABLET PO SCH ×3 (10:05→16:11)
[2018-05-15] MEDS: NICOTINE 21 MG/24 HOUR PATCH TD SCH (10:05)
[2018-05-15] MEDS: OXcarbazepine 300 MG TABLET PO SCH ×2 (10:05→16:11)
[2018-05-15] MEDS: PROPRANOLOL HCL 10 MG TABLET PO SCH ×2 (10:05→16:11)
[2018-05-15] MEDS: DOCUSATE SODIUM 250 MG CAPSULE PO SCH ×2 (10:05→16:11)
[2018-05-15] MEDS: QUEtiapine FUMARATE 200 MG TABLET PO SCH (20:10)
[2018-05-16] MEDS: LACTULOSE 20 GM/30 ML SOLUTION UDCUP PO SCH ×2 (09:00→17:00)
[2018-05-16] MEDS: BENZTROPINE MESYLATE 2 MG TABLET PO SCH ×2 (09:49→17:11)
[2018-05-16] MEDS: CITALOPRAM HYDROBROMIDE 10 MG TABLET PO SCH (09:49)
[2018-05-16] MEDS: CloZAPine 100 MG TABLET PO SCH ×2 (09:49→20:41)
[2018-05-16] MEDS: SODIUM CHLORIDE 1 GM TABLET PO SCH ×2 (09:49→17:11)
[2018-05-16] MEDS: QUEtiapine FUMARATE 100 MG TABLET PO SCH ×3 (09:49→17:10)
[2018-05-16] MEDS: NICOTINE 21 MG/24 HOUR PATCH TD SCH (09:49)
[2018-05-16] MEDS: DOCUSATE SODIUM 250 MG CAPSULE PO SCH ×2 (09:49→17:11)
[2018-05-16] MEDS: PROPRANOLOL HCL 10 MG TABLET PO SCH ×2 (09:49→17:10)
[2018-05-16] MEDS: OXcarbazepine 300 MG TABLET PO SCH ×2 (09:49→17:10)
[2018-05-16 16:44] VITALS: BP 100/60
[2018-05-16] MEDS: QUEtiapine FUMARATE 200 MG TABLET PO SCH (20:41)
[2018-05-17] MEDS: QUEtiapine FUMARATE 100 MG TABLET PO SCH ×3 (08:51→17:17)
[2018-05-17] MEDS: CloZAPine 100 MG TABLET PO SCH ×2 (08:51→20:22)
[2018-05-17] MEDS: CITALOPRAM HYDROBROMIDE 10 MG TABLET PO SCH (08:51)
[2018-05-17] MEDS: DOCUSATE SODIUM 250 MG CAPSULE PO SCH ×2 (08:51→17:17)
[2018-05-17] MEDS: SODIUM CHLORIDE 1 GM TABLET PO SCH ×2 (08:51→17:17)
[2018-05-17] MEDS: PROPRANOLOL HCL 10 MG TABLET PO SCH ×2 (08:51→17:17)
[2018-05-17] MEDS: BENZTROPINE MESYLATE 2 MG TABLET PO SCH ×2 (08:51→17:17)
[2018-05-17] MEDS: OXcarbazepine 300 MG TABLET PO SCH ×2 (08:56→17:17)
[2018-05-17] MEDS: LACTULOSE 20 GM/30 ML SOLUTION UDCUP PO SCH ×2 (08:57→17:00)
[2018-05-17] MEDS: NICOTINE 21 MG/24 HOUR PATCH TD SCH (08:57)
[2018-05-17 16:00] VITALS: BP 100/71
[2018-05-17] MEDS: QUEtiapine FUMARATE 200 MG TABLET PO SCH (20:22)
[2018-05-18 06:48] LABS: EOSINOPHILS % (AUTO) 0 % (1.0-6.0); HEMATOCRIT 37.4 % (36-46); HEMOGLOBIN 13.1 g/dL (12.0-16.0); MEAN CORPUSCULAR HEMOGLOBIN 32.9 pg (26.0-34.0); MEAN CORPUSCULAR HGB CONC 35.1 G/dL (31.0-37.0); MEAN CORPUSCULAR VOLUME 94 fL (80-100); MONOCYTES # (AUTO) 0.5 K/uL (0.1-1.0); MONOCYTES % (AUTO) 10.7 % (2.0-9.0); NEUTROPHILS # (AUTO) 2.3 K/uL (1.8-7.7); NEUTROPHILS % (AUTO) 47.3 % (40.0-70.0); PLATELET COUNT (AUTO) 261 K/uL (150-450); RED BLOOD CELL COUNT(AUTO) 3.99 MIL/uL (4.00-5.20)
[2018-05-18 06:57] LABS: ANION GAP 6 mmol/L (8-16); CALCIUM, TOTAL 8.3 mg/dL (8.8-10.5); CARBON DIOXIDE 26 mmol/L (22-29); CHLORIDE 99 mmol/L (98-107); CREATININE 0.78 mg/dL (0.60-1.30); GLOMERULAR FILTR. RATE CALC > 60 mL/min (>60); GLUCOSE,RANDOM 89 mg/dL (70-110); POTASSIUM 3.7 mmol/L (3.5-5.1); SODIUM SERUM 131 mmol/L (136-145); UREA NITROGEN, BLOOD 10 mg/dL (7-18)
[2018-05-18] MEDS: DOCUSATE SODIUM 250 MG CAPSULE PO SCH ×2 (10:20→16:30)
[2018-05-18] MEDS: BENZTROPINE MESYLATE 2 MG TABLET PO SCH ×2 (10:20→16:27)
[2018-05-18] MEDS: SODIUM CHLORIDE 1 GM TABLET PO SCH ×2 (10:20→16:28)
[2018-05-18] MEDS: OXcarbazepine 300 MG TABLET PO SCH ×2 (10:20→16:27)
[2018-05-18] MEDS: QUEtiapine FUMARATE 100 MG TABLET PO SCH ×3 (10:20→16:27)
[2018-05-18] MEDS: CloZAPine 100 MG TABLET PO SCH ×2 (10:20→20:15)
[2018-05-18] MEDS: PROPRANOLOL HCL 10 MG TABLET PO SCH ×2 (10:20→16:27)
[2018-05-18] MEDS: CITALOPRAM HYDROBROMIDE 10 MG TABLET PO SCH (10:20)
[2018-05-18] MEDS: LACTULOSE 20 GM/30 ML SOLUTION UDCUP PO SCH ×2 (10:21→16:30)
[2018-05-18] MEDS: NICOTINE 21 MG/24 HOUR PATCH TD SCH (10:27)
[2018-05-18 16:20] VITALS: BP 110/64
[2018-05-18] MEDS: QUEtiapine FUMARATE 200 MG TABLET PO SCH (20:14)
[2018-05-19] MEDS: LACTULOSE 20 GM/30 ML SOLUTION UDCUP PO SCH ×2 (09:00→16:38)
[2018-05-19] MEDS: PROPRANOLOL HCL 10 MG TABLET PO SCH ×2 (10:33→16:35)
[2018-05-19] MEDS: CITALOPRAM HYDROBROMIDE 10 MG TABLET PO SCH (10:33)
[2018-05-19] MEDS: SODIUM CHLORIDE 1 GM TABLET PO SCH ×3 (10:33→16:35)
[2018-05-19] MEDS: OXcarbazepine 300 MG TABLET PO SCH ×2 (10:33→16:35)
[2018-05-19] MEDS: CloZAPine 100 MG TABLET PO SCH ×2 (10:33→20:07)
[2018-05-19] MEDS: BENZTROPINE MESYLATE 2 MG TABLET PO SCH ×2 (10:33→16:35)
[2018-05-19] MEDS: QUEtiapine FUMARATE 100 MG TABLET PO SCH ×3 (10:33→16:35)
[2018-05-19] MEDS: NICOTINE 21 MG/24 HOUR PATCH TD SCH (10:33)
[2018-05-19] MEDS: DOCUSATE SODIUM 250 MG CAPSULE PO SCH ×2 (10:34→16:35)
[2018-05-19 16:00] VITALS: BP 107/70
[2018-05-19] MEDS: QUEtiapine FUMARATE 200 MG TABLET PO SCH (20:07)
[2018-05-19] MEDS: LORazepam 2 MG TABLET PO PRN (21:28)
[2018-05-20] MEDS: LACTULOSE 20 GM/30 ML SOLUTION UDCUP PO SCH ×2 (09:00→16:10)
[2018-05-20] MEDS: SODIUM CHLORIDE 1 GM TABLET PO SCH ×3 (10:44→16:14)
[2018-05-20] MEDS: CITALOPRAM HYDROBROMIDE 10 MG TABLET PO SCH (10:44)
[2018-05-20] MEDS: QUEtiapine FUMARATE 100 MG TABLET PO SCH ×3 (10:44→16:13)
[2018-05-20] MEDS: BENZTROPINE MESYLATE 2 MG TABLET PO SCH ×2 (10:44→16:14)
[2018-05-20] MEDS: OXcarbazepine 300 MG TABLET PO SCH ×2 (10:45→16:13)
[2018-05-20] MEDS: NICOTINE 21 MG/24 HOUR PATCH TD SCH (10:45)
[2018-05-20] MEDS: PROPRANOLOL HCL 10 MG TABLET PO SCH ×2 (10:45→16:14)
[2018-05-20] MEDS: CloZAPine 100 MG TABLET PO SCH ×2 (10:45→20:55)
[2018-05-20] MEDS: DOCUSATE SODIUM 250 MG CAPSULE PO SCH ×2 (10:47→16:13)
[2018-05-20 16:00] VITALS: BP 110/74
[2018-05-20] MEDS: LORazepam 2 MG TABLET PO PRN (16:13)
[2018-05-20] MEDS: QUEtiapine FUMARATE 200 MG TABLET PO SCH (20:56)
[2018-05-21 07:03] LABS: ANION GAP 8 mmol/L (8-16); CALCIUM, TOTAL 8.6 mg/dL (8.8-10.5); CARBON DIOXIDE 25 mmol/L (22-29); CHLORIDE 99 mmol/L (98-107); CREATININE 0.76 mg/dL (0.60-1.30); GLOMERULAR FILTR. RATE CALC > 60 mL/min (>60); GLUCOSE,RANDOM 88 mg/dL (70-110); POTASSIUM 4.1 mmol/L (3.5-5.1); SODIUM SERUM 132 mmol/L (136-145); UREA NITROGEN, BLOOD 10 mg/dL (7-18)
[2018-05-21 08:54] VITALS: BP 111/95
[2018-05-21] MEDS: LACTULOSE 20 GM/30 ML SOLUTION UDCUP PO SCH ×2 (09:00→16:11)
[2018-05-21] MEDS: PROPRANOLOL HCL 10 MG TABLET PO SCH ×2 (09:09→16:13)
[2018-05-21] MEDS: NICOTINE 21 MG/24 HOUR PATCH TD SCH (09:09)
[2018-05-21] MEDS: QUEtiapine FUMARATE 100 MG TABLET PO SCH ×3 (09:09→16:14)
[2018-05-21] MEDS: DOCUSATE SODIUM 250 MG CAPSULE PO SCH ×2 (09:09→16:14)
[2018-05-21] MEDS: CloZAPine 100 MG TABLET PO SCH ×2 (09:09→20:25)
[2018-05-21] MEDS: CITALOPRAM HYDROBROMIDE 10 MG TABLET PO SCH (09:09)
[2018-05-21] MEDS: BENZTROPINE MESYLATE 2 MG TABLET PO SCH ×2 (09:09→16:14)
[2018-05-21] MEDS: SODIUM CHLORIDE 1 GM TABLET PO SCH ×3 (09:09→16:14)
[2018-05-21] MEDS: OXcarbazepine 300 MG TABLET PO SCH ×2 (09:10→16:14)
[2018-05-21 16:00] VITALS: BP 120/76
[2018-05-21] MEDS: LORazepam 2 MG TABLET PO PRN (16:14)
[2018-05-21] MEDS: QUEtiapine FUMARATE 200 MG TABLET PO SCH (20:25)
[2018-05-22 08:35] VITALS: BP 120/80
[2018-05-22] MEDS: OXcarbazepine 300 MG TABLET PO SCH ×2 (08:36→16:28)
[2018-05-22] MEDS: BENZTROPINE MESYLATE 2 MG TABLET PO SCH ×2 (08:36→16:28)
[2018-05-22] MEDS: DOCUSATE SODIUM 250 MG CAPSULE PO SCH ×2 (08:36→16:30)
[2018-05-22] MEDS: QUEtiapine FUMARATE 100 MG TABLET PO SCH ×3 (08:36→16:28)
[2018-05-22] MEDS: CloZAPine 100 MG TABLET PO SCH ×2 (08:36→20:33)
[2018-05-22] MEDS: PROPRANOLOL HCL 10 MG TABLET PO SCH ×2 (08:36→16:28)
[2018-05-22] MEDS: SODIUM CHLORIDE 1 GM TABLET PO SCH ×3 (08:37→16:28)
[2018-05-22] MEDS: CITALOPRAM HYDROBROMIDE 10 MG TABLET PO SCH (08:37)
[2018-05-22] MEDS: LORazepam 2 MG TABLET PO PRN (08:41)
[2018-05-22] MEDS: NICOTINE 21 MG/24 HOUR PATCH TD SCH (08:45)
[2018-05-22] MEDS: LACTULOSE 20 GM/30 ML SOLUTION UDCUP PO SCH ×2 (09:00→16:33)
[2018-05-22 16:47] VITALS: BP 117/81
[2018-05-22] MEDS: QUEtiapine FUMARATE 200 MG TABLET PO SCH (20:33)
[2018-05-23] MEDS: CloZAPine 100 MG TABLET PO SCH ×2 (09:38→20:18)
[2018-05-23] MEDS: DOCUSATE SODIUM 250 MG CAPSULE PO SCH ×2 (09:38→15:52)
[2018-05-23] MEDS: OXcarbazepine 300 MG TABLET PO SCH ×2 (09:38→15:52)
[2018-05-23] MEDS: PROPRANOLOL HCL 10 MG TABLET PO SCH ×2 (09:38→15:52)
[2018-05-23] MEDS: QUEtiapine FUMARATE 100 MG TABLET PO SCH ×3 (09:39→15:52)
[2018-05-23] MEDS: LACTULOSE 20 GM/30 ML SOLUTION UDCUP PO SCH ×2 (09:39→15:50)
[2018-05-23] MEDS: BENZTROPINE MESYLATE 2 MG TABLET PO SCH ×2 (09:39→15:52)
[2018-05-23] MEDS: SODIUM CHLORIDE 1 GM TABLET PO SCH ×3 (09:39→15:52)
[2018-05-23] MEDS: CITALOPRAM HYDROBROMIDE 10 MG TABLET PO SCH (09:40)
[2018-05-23] MEDS: NICOTINE 21 MG/24 HOUR PATCH TD SCH (09:49)
[2018-05-23 16:34] VITALS: BP 102/60
[2018-05-23] MEDS: QUEtiapine FUMARATE 200 MG TABLET PO SCH (20:18)
[2018-05-24 08:00] VITALS: BP 104/67
[2018-05-24] MEDS: BENZTROPINE MESYLATE 2 MG TABLET PO SCH ×2 (08:06→16:48)
[2018-05-24] MEDS: DOCUSATE SODIUM 250 MG CAPSULE PO SCH ×2 (08:06→16:48)
[2018-05-24] MEDS: CloZAPine 100 MG TABLET PO SCH ×2 (08:06→20:32)
[2018-05-24] MEDS: PROPRANOLOL HCL 10 MG TABLET PO SCH ×2 (08:06→16:48)
[2018-05-24] MEDS: SODIUM CHLORIDE 1 GM TABLET PO SCH ×3 (08:06→16:47)
[2018-05-24] MEDS: QUEtiapine FUMARATE 100 MG TABLET PO SCH ×3 (08:06→16:48)
[2018-05-24] MEDS: CITALOPRAM HYDROBROMIDE 10 MG TABLET PO SCH (08:06)
[2018-05-24] MEDS: OXcarbazepine 300 MG TABLET PO SCH ×2 (08:06→16:47)
[2018-05-24] MEDS: NICOTINE 21 MG/24 HOUR PATCH TD SCH (09:00)
[2018-05-24] MEDS: LACTULOSE 20 GM/30 ML SOLUTION UDCUP PO SCH ×2 (09:00→16:48)
[2018-05-24] MEDS: LORazepam 2 MG TABLET PO PRN (15:48)
[2018-05-24 17:02] VITALS: BP 118/67
[2018-05-24] MEDS: QUEtiapine FUMARATE 200 MG TABLET PO SCH (20:32)
[2018-05-25 06:31] LABS: EOSINOPHILS % (AUTO) 0 % (1.0-6.0); HEMATOCRIT 37.1 % (36-46); HEMOGLOBIN 12.9 g/dL (12.0-16.0); LYMPHOCYTES # (AUTO) 2.4 K/uL (1.0-4.8); LYMPHOCYTES % (AUTO) 46.1 % (22.0-44.0); MEAN CORPUSCULAR HEMOGLOBIN 32.5 pg (26.0-34.0); MEAN CORPUSCULAR HGB CONC 34.7 G/dL (31.0-37.0); MEAN CORPUSCULAR VOLUME 94 fL (80-100); MONOCYTES # (AUTO) 0.7 K/uL (0.1-1.0); MONOCYTES % (AUTO) 12.9 % (2.0-9.0); NEUTROPHILS # (AUTO) 2.1 K/uL (1.8-7.7); PLATELET COUNT (AUTO) 237 K/uL (150-450); RED BLOOD CELL COUNT(AUTO) 3.96 MIL/uL (4.00-5.20); RED CELL DISTRIBUTION WIDTH 12.3 % (11.5-14.5)
[2018-05-25 06:56] LABS: ANION GAP 9 mmol/L (8-16); CALCIUM, TOTAL 8.6 mg/dL (8.8-10.5); CARBON DIOXIDE 27 mmol/L (22-29); CHLORIDE 105 mmol/L (98-107); CREATININE 0.83 mg/dL (0.60-1.30); GLOMERULAR FILTR. RATE CALC > 60 mL/min (>60); GLUCOSE,RANDOM 89 mg/dL (70-110); SODIUM SERUM 141 mmol/L (136-145); UREA NITROGEN, BLOOD 14 mg/dL (7-18)
[2018-05-25] MEDS: CloZAPine 100 MG TABLET PO SCH ×2 (08:08→20:27)
[2018-05-25] MEDS: SODIUM CHLORIDE 1 GM TABLET PO SCH ×3 (08:09→16:45)
[2018-05-25] MEDS: QUEtiapine FUMARATE 100 MG TABLET PO SCH ×3 (08:09→16:46)
[2018-05-25] MEDS: CITALOPRAM HYDROBROMIDE 10 MG TABLET PO SCH (08:09)
[2018-05-25] MEDS: LORazepam 2 MG TABLET PO PRN ×3 (08:09→17:08)
[2018-05-25] MEDS: OXcarbazepine 300 MG TABLET PO SCH ×2 (08:09→16:46)
[2018-05-25] MEDS: PROPRANOLOL HCL 10 MG TABLET PO SCH ×2 (08:09→16:45)
[2018-05-25] MEDS: BENZTROPINE MESYLATE 2 MG TABLET PO SCH ×2 (08:10→16:45)
[2018-05-25] MEDS: DOCUSATE SODIUM 250 MG CAPSULE PO SCH ×2 (08:11→16:45)
[2018-05-25 08:42] VITALS: BP 104/63
[2018-05-25] MEDS: LACTULOSE 20 GM/30 ML SOLUTION UDCUP PO SCH ×2 (09:00→16:46)
[2018-05-25] MEDS: NICOTINE 21 MG/24 HOUR PATCH TD SCH (09:00)
[2018-05-25] MEDS: OLANZapine 5 MG TABLET PO PRN (12:34)
[2018-05-25 16:08] VITALS: BP 127/89
[2018-05-25] MEDS: QUEtiapine FUMARATE 200 MG TABLET PO SCH (20:27)
[2018-05-26 08:00] VITALS: BP 128/72
[2018-05-26] MEDS: PROPRANOLOL HCL 10 MG TABLET PO SCH ×2 (08:42→16:37)
[2018-05-26] MEDS: BENZTROPINE MESYLATE 2 MG TABLET PO SCH ×2 (08:42→16:38)
[2018-05-26] MEDS: CloZAPine 100 MG TABLET PO SCH ×2 (08:42→22:00)
[2018-05-26] MEDS: DOCUSATE SODIUM 250 MG CAPSULE PO SCH ×2 (08:42→16:37)
[2018-05-26] MEDS: LORazepam 2 MG TABLET PO PRN ×2 (08:42→13:55)
[2018-05-26] MEDS: CITALOPRAM HYDROBROMIDE 10 MG TABLET PO SCH (08:42)
[2018-05-26] MEDS: QUEtiapine FUMARATE 100 MG TABLET PO SCH ×3 (08:42→16:38)
[2018-05-26] MEDS: OXcarbazepine 300 MG TABLET PO SCH ×2 (08:43→16:38)
[2018-05-26] MEDS: SODIUM CHLORIDE 1 GM TABLET PO SCH ×2 (08:43→16:38)
[2018-05-26] MEDS: LACTULOSE 20 GM/30 ML SOLUTION UDCUP PO SCH ×2 (09:00→17:00)
[2018-05-26] MEDS: NICOTINE 21 MG/24 HOUR PATCH TD SCH (09:00)
[2018-05-26 16:49] VITALS: BP 124/74
[2018-05-26] MEDS: QUEtiapine FUMARATE 200 MG TABLET PO SCH (22:00)
[2018-05-27 08:00] VITALS: BP 123/77
[2018-05-27] MEDS: NICOTINE 21 MG/24 HOUR PATCH TD SCH (09:00)
[2018-05-27] MEDS: LACTULOSE 20 GM/30 ML SOLUTION UDCUP PO SCH ×2 (09:00→16:39)
[2018-05-27] MEDS: OXcarbazepine 300 MG TABLET PO SCH ×2 (09:02→16:39)
[2018-05-27] MEDS: SODIUM CHLORIDE 1 GM TABLET PO SCH ×2 (09:02→16:38)
[2018-05-27] MEDS: DOCUSATE SODIUM 250 MG CAPSULE PO SCH ×2 (09:03→16:38)
[2018-05-27] MEDS: QUEtiapine FUMARATE 100 MG TABLET PO SCH ×3 (09:03→16:39)
[2018-05-27] MEDS: BENZTROPINE MESYLATE 2 MG TABLET PO SCH ×2 (09:03→16:38)
[2018-05-27] MEDS: CITALOPRAM HYDROBROMIDE 10 MG TABLET PO SCH (09:03)
[2018-05-27] MEDS: CloZAPine 100 MG TABLET PO SCH ×2 (09:04→20:20)
[2018-05-27] MEDS: PROPRANOLOL HCL 10 MG TABLET PO SCH ×2 (09:04→16:38)
[2018-05-27] MEDS: LORazepam 2 MG TABLET PO PRN (12:20)
[2018-05-27 16:23] VITALS: BP 116/92
[2018-05-27] MEDS: QUEtiapine FUMARATE 200 MG TABLET PO SCH (20:21)
[2018-05-28] MEDS: CloZAPine 100 MG TABLET PO SCH ×2 (08:05→20:09)
[2018-05-28] MEDS: BENZTROPINE MESYLATE 2 MG TABLET PO SCH ×2 (08:05→16:14)
[2018-05-28] MEDS: PROPRANOLOL HCL 10 MG TABLET PO SCH ×2 (08:06→16:14)
[2018-05-28] MEDS: QUEtiapine FUMARATE 100 MG TABLET PO SCH ×3 (08:06→16:19)
[2018-05-28] MEDS: DOCUSATE SODIUM 250 MG CAPSULE PO SCH ×2 (08:06→16:14)
[2018-05-28] MEDS: SODIUM CHLORIDE 1 GM TABLET PO SCH ×2 (08:07→16:14)
[2018-05-28] MEDS: OXcarbazepine 300 MG TABLET PO SCH ×2 (08:07→16:14)
[2018-05-28] MEDS: CITALOPRAM HYDROBROMIDE 10 MG TABLET PO SCH (08:07)
[2018-05-28] MEDS: LACTULOSE 20 GM/30 ML SOLUTION UDCUP PO SCH ×2 (08:10→16:15)
[2018-05-28] MEDS: NICOTINE 21 MG/24 HOUR PATCH TD SCH (09:00)
[2018-05-28 09:01] VITALS: BP 102/68
[2018-05-28] MEDS: LORazepam 2 MG TABLET PO PRN ×2 (12:07→19:49)
[2018-05-28 17:02] VITALS: BP 120/78
[2018-05-28 19:49] VITALS: BP 129/78
[2018-05-28] MEDS: QUEtiapine FUMARATE 200 MG TABLET PO SCH (20:09)
[2018-05-29 08:26] VITALS: BP 123/69
[2018-05-29] MEDS: NICOTINE 21 MG/24 HOUR PATCH TD SCH (09:00)
[2018-05-29] MEDS: LACTULOSE 20 GM/30 ML SOLUTION UDCUP PO SCH ×2 (09:00→16:20)
[2018-05-29] MEDS: SODIUM CHLORIDE 1 GM TABLET PO SCH ×2 (09:17→16:20)
[2018-05-29] MEDS: DOCUSATE SODIUM 250 MG CAPSULE PO SCH ×2 (09:17→16:20)
[2018-05-29] MEDS: QUEtiapine FUMARATE 100 MG TABLET PO SCH ×3 (09:17→16:20)
[2018-05-29] MEDS: CITALOPRAM HYDROBROMIDE 10 MG TABLET PO SCH (09:17)
[2018-05-29] MEDS: CloZAPine 100 MG TABLET PO SCH ×2 (09:17→20:59)
[2018-05-29] MEDS: BENZTROPINE MESYLATE 2 MG TABLET PO SCH ×2 (09:17→16:20)
[2018-05-29] MEDS: PROPRANOLOL HCL 10 MG TABLET PO SCH ×2 (09:17→16:20)
[2018-05-29] MEDS: OXcarbazepine 300 MG TABLET PO SCH ×2 (09:17→16:20)
[2018-05-29 16:25] VITALS: BP 122/86
[2018-05-29] MEDS: QUEtiapine FUMARATE 200 MG TABLET PO SCH (20:59)
[2018-05-30] MEDS: LACTULOSE 20 GM/30 ML SOLUTION UDCUP PO SCH ×2 (09:00→17:00)
[2018-05-30] MEDS: CloZAPine 100 MG TABLET PO SCH ×2 (09:36→21:05)
[2018-05-30] MEDS: OXcarbazepine 300 MG TABLET PO SCH ×2 (09:36→17:43)
[2018-05-30] MEDS: QUEtiapine FUMARATE 100 MG TABLET PO SCH ×3 (09:36→17:43)
[2018-05-30] MEDS: BENZTROPINE MESYLATE 2 MG TABLET PO SCH ×2 (09:36→17:43)
[2018-05-30] MEDS: PROPRANOLOL HCL 10 MG TABLET PO SCH ×2 (09:36→17:43)
[2018-05-30] MEDS: DOCUSATE SODIUM 250 MG CAPSULE PO SCH ×2 (09:36→17:43)
[2018-05-30] MEDS: SODIUM CHLORIDE 1 GM TABLET PO SCH ×2 (09:38→17:43)
[2018-05-30] MEDS: NICOTINE 21 MG/24 HOUR PATCH TD SCH (09:39)
[2018-05-30] MEDS: CITALOPRAM HYDROBROMIDE 10 MG TABLET PO SCH (09:39)
[2018-05-30 19:23] VITALS: BP 110/76
[2018-05-30] MEDS: QUEtiapine FUMARATE 200 MG TABLET PO SCH (21:05)
[2018-05-31] MEDS: QUEtiapine FUMARATE 100 MG TABLET PO SCH ×3 (08:41→17:10)
[2018-05-31] MEDS: BENZTROPINE MESYLATE 2 MG TABLET PO SCH ×2 (08:41→17:09)
[2018-05-31] MEDS: SODIUM CHLORIDE 1 GM TABLET PO SCH ×2 (08:41→17:33)
[2018-05-31] MEDS: DOCUSATE SODIUM 250 MG CAPSULE PO SCH ×2 (08:42→17:00)
[2018-05-31] MEDS: CloZAPine 100 MG TABLET PO SCH ×2 (08:42→20:10)
[2018-05-31] MEDS: LACTULOSE 20 GM/30 ML SOLUTION UDCUP PO SCH ×2 (08:42→17:00)
[2018-05-31] MEDS: OXcarbazepine 300 MG TABLET PO SCH ×2 (08:42→17:10)
[2018-05-31] MEDS: PROPRANOLOL HCL 10 MG TABLET PO SCH ×2 (08:42→17:10)
[2018-05-31] MEDS: CITALOPRAM HYDROBROMIDE 10 MG TABLET PO SCH (08:42)
[2018-05-31] MEDS: NICOTINE 21 MG/24 HOUR PATCH TD SCH (09:00)
[2018-05-31 16:00] VITALS: BP 112/74
[2018-05-31] MEDS: QUEtiapine FUMARATE 200 MG TABLET PO SCH (20:13)
[2018-06-01 06:26] LABS: EOSINOPHILS % (AUTO) 0 % (1.0-6.0); HEMATOCRIT 35.9 % (36-46); HEMOGLOBIN 13.1 g/dL (12.0-16.0); LYMPHOCYTES # (AUTO) 2.1 K/uL (1.0-4.8); LYMPHOCYTES % (AUTO) 42.5 % (22.0-44.0); MEAN CORPUSCULAR HEMOGLOBIN 33.5 pg (26.0-34.0); MEAN CORPUSCULAR HGB CONC 36.4 G/dL (31.0-37.0); MEAN CORPUSCULAR VOLUME 92 fL (80-100); MONOCYTES # (AUTO) 0.6 K/uL (0.1-1.0); MONOCYTES % (AUTO) 12.4 % (2.0-9.0); NEUTROPHILS # (AUTO) 2.3 K/uL (1.8-7.7); NEUTROPHILS % (AUTO) 45.1 % (40.0-70.0); PLATELET COUNT (AUTO) 217 K/uL (150-450); RED CELL DISTRIBUTION WIDTH 12.2 % (11.5-14.5)
[2018-06-01] MEDS: DOCUSATE SODIUM 250 MG CAPSULE PO SCH ×2 (10:02→16:27)
[2018-06-01] MEDS: CloZAPine 100 MG TABLET PO SCH ×2 (10:02→20:37)
[2018-06-01] MEDS: OXcarbazepine 300 MG TABLET PO SCH ×2 (10:02→16:27)
[2018-06-01] MEDS: QUEtiapine FUMARATE 100 MG TABLET PO SCH ×3 (10:02→16:27)
[2018-06-01] MEDS: BENZTROPINE MESYLATE 2 MG TABLET PO SCH ×2 (10:02→16:27)
[2018-06-01] MEDS: PROPRANOLOL HCL 10 MG TABLET PO SCH ×2 (10:02→16:27)
[2018-06-01] MEDS: CITALOPRAM HYDROBROMIDE 10 MG TABLET PO SCH (10:03)
[2018-06-01] MEDS: SODIUM CHLORIDE 1 GM TABLET PO SCH ×2 (10:03→16:26)
[2018-06-01] MEDS: LACTULOSE 20 GM/30 ML SOLUTION UDCUP PO SCH ×2 (10:03→16:27)
[2018-06-01] MEDS: NICOTINE 21 MG/24 HOUR PATCH TD SCH (10:04)
[2018-06-01 16:15] VITALS: BP 121/94
[2018-06-01] MEDS: QUEtiapine FUMARATE 200 MG TABLET PO SCH (20:38)
[2018-06-02] MEDS: QUEtiapine FUMARATE 100 MG TABLET PO SCH ×3 (07:51→16:28)
[2018-06-02] MEDS: CITALOPRAM HYDROBROMIDE 10 MG TABLET PO SCH (07:51)
[2018-06-02] MEDS: OXcarbazepine 300 MG TABLET PO SCH ×2 (07:51→16:28)
[2018-06-02] MEDS: SODIUM CHLORIDE 1 GM TABLET PO SCH ×2 (07:51→16:28)
[2018-06-02] MEDS: PROPRANOLOL HCL 10 MG TABLET PO SCH ×2 (07:51→16:28)
[2018-06-02] MEDS: CloZAPine 100 MG TABLET PO SCH ×2 (07:51→20:27)
[2018-06-02] MEDS: BENZTROPINE MESYLATE 2 MG TABLET PO SCH ×2 (07:51→16:28)
[2018-06-02] MEDS: DOCUSATE SODIUM 250 MG CAPSULE PO SCH ×2 (07:51→16:28)
[2018-06-02] MEDS: LACTULOSE 20 GM/30 ML SOLUTION UDCUP PO SCH ×2 (08:24→16:30)
[2018-06-02] MEDS: NICOTINE 21 MG/24 HOUR PATCH TD SCH (08:24)
[2018-06-02 16:00] VITALS: BP 108/62
[2018-06-02] MEDS: QUEtiapine FUMARATE 200 MG TABLET PO SCH (20:27)
[2018-06-03 08:00] VITALS: BP 104/67
[2018-06-03] MEDS: OXcarbazepine 300 MG TABLET PO SCH ×2 (08:11→16:22)
[2018-06-03] MEDS: BENZTROPINE MESYLATE 2 MG TABLET PO SCH ×2 (08:11→17:09)
[2018-06-03] MEDS: DOCUSATE SODIUM 250 MG CAPSULE PO SCH ×2 (08:11→16:21)
[2018-06-03] MEDS: CloZAPine 100 MG TABLET PO SCH ×2 (08:11→20:04)
[2018-06-03] MEDS: PROPRANOLOL HCL 10 MG TABLET PO SCH ×2 (08:12→16:21)
[2018-06-03] MEDS: CITALOPRAM HYDROBROMIDE 10 MG TABLET PO SCH (08:12)
[2018-06-03] MEDS: QUEtiapine FUMARATE 100 MG TABLET PO SCH ×3 (08:12→16:22)
[2018-06-03] MEDS: LACTULOSE 20 GM/30 ML SOLUTION UDCUP PO SCH ×2 (08:12→16:25)
[2018-06-03] MEDS: SODIUM CHLORIDE 1 GM TABLET PO SCH ×2 (08:12→16:21)
[2018-06-03] MEDS: NICOTINE 21 MG/24 HOUR PATCH TD SCH (08:27)
[2018-06-03] MEDS: LORazepam 2 MG TABLET PO PRN (16:25)
[2018-06-03] MEDS: QUEtiapine FUMARATE 200 MG TABLET PO SCH (20:04)
[2018-06-03 20:42] VITALS: BP 114/87
[2018-06-04 08:00] VITALS: BP 124/60
[2018-06-04] MEDS: LACTULOSE 20 GM/30 ML SOLUTION UDCUP PO SCH (09:00)
[2018-06-04] MEDS: CITALOPRAM HYDROBROMIDE 10 MG TABLET PO SCH (10:10)
[2018-06-04] MEDS: PROPRANOLOL HCL 10 MG TABLET PO SCH ×2 (10:10→16:16)
[2018-06-04] MEDS: CloZAPine 100 MG TABLET PO SCH ×2 (10:10→20:54)
[2018-06-04] MEDS: OXcarbazepine 300 MG TABLET PO SCH ×2 (10:10→16:16)
[2018-06-04] MEDS: BENZTROPINE MESYLATE 2 MG TABLET PO SCH ×2 (10:10→16:16)
[2018-06-04] MEDS: SODIUM CHLORIDE 1 GM TABLET PO SCH ×2 (10:11→16:16)
[2018-06-04] MEDS: QUEtiapine FUMARATE 100 MG TABLET PO SCH ×3 (10:11→16:16)
[2018-06-04] MEDS: NICOTINE 21 MG/24 HOUR PATCH TD SCH (10:16)
[2018-06-04] MEDS: DOCUSATE SODIUM 250 MG CAPSULE PO SCH ×2 (10:18→16:16)
[2018-06-04 16:14] VITALS: BP 110/68
[2018-06-04] MEDS: QUEtiapine FUMARATE 200 MG TABLET PO SCH (20:54)
[2018-06-05 06:59] LABS: ANION GAP 9 mmol/L (8-16); CALCIUM, TOTAL 8.2 mg/dL (8.8-10.5); CARBON DIOXIDE 26 mmol/L (22-29); CHLORIDE 100 mmol/L (98-107); CREATININE 0.81 mg/dL (0.60-1.30); GLOMERULAR FILTR. RATE CALC > 60 mL/min (>60); GLUCOSE,RANDOM 92 mg/dL (70-110); POTASSIUM 3.8 mmol/L (3.5-5.1); SODIUM SERUM 135 mmol/L (136-145); UREA NITROGEN, BLOOD 11 mg/dL (7-18)
[2018-06-05] MEDS: BENZTROPINE MESYLATE 2 MG TABLET PO SCH ×2 (08:04→16:38)
[2018-06-05] MEDS: CloZAPine 100 MG TABLET PO SCH ×2 (08:04→20:18)
[2018-06-05] MEDS: PROPRANOLOL HCL 10 MG TABLET PO SCH ×2 (08:04→16:39)
[2018-06-05] MEDS: SODIUM CHLORIDE 1 GM TABLET PO SCH ×2 (08:04→16:38)
[2018-06-05] MEDS: CITALOPRAM HYDROBROMIDE 10 MG TABLET PO SCH (08:04)
[2018-06-05] MEDS: QUEtiapine FUMARATE 100 MG TABLET PO SCH ×3 (08:04→16:39)
[2018-06-05] MEDS: OXcarbazepine 300 MG TABLET PO SCH ×2 (08:04→16:38)
[2018-06-05] MEDS: DOCUSATE SODIUM 250 MG CAPSULE PO SCH ×2 (08:05→16:38)
[2018-06-05 08:28] VITALS: BP 103/61
[2018-06-05] MEDS: NICOTINE 21 MG/24 HOUR PATCH TD SCH (09:00)
[2018-06-05 17:01] VITALS: BP 115/73
[2018-06-05] MEDS: QUEtiapine FUMARATE 200 MG TABLET PO SCH (20:18)
[2018-06-06 08:00] VITALS: BP 101/61
[2018-06-06] MEDS: SODIUM CHLORIDE 1 GM TABLET PO SCH ×2 (09:23→15:56)
[2018-06-06] MEDS: CITALOPRAM HYDROBROMIDE 10 MG TABLET PO SCH (09:23)
[2018-06-06] MEDS: PROPRANOLOL HCL 10 MG TABLET PO SCH ×2 (09:36→15:58)
[2018-06-06] MEDS: OXcarbazepine 300 MG TABLET PO SCH ×2 (09:36→15:56)
[2018-06-06] MEDS: BENZTROPINE MESYLATE 2 MG TABLET PO SCH ×2 (09:36→15:56)
[2018-06-06] MEDS: CloZAPine 100 MG TABLET PO SCH ×2 (09:36→20:02)
[2018-06-06] MEDS: QUEtiapine FUMARATE 100 MG TABLET PO SCH ×3 (09:36→15:56)
[2018-06-06] MEDS: NICOTINE 21 MG/24 HOUR PATCH TD SCH (09:37)
[2018-06-06] MEDS: DOCUSATE SODIUM 250 MG CAPSULE PO SCH ×2 (09:37→15:56)
[2018-06-06] MEDS: LORazepam 2 MG TABLET PO PRN (15:56)
[2018-06-06 16:00] VITALS: BP 139/83
[2018-06-06] MEDS: QUEtiapine FUMARATE 200 MG TABLET PO SCH (20:03)
[2018-06-07] MEDS: CloZAPine 100 MG TABLET PO SCH ×2 (07:57→20:34)
[2018-06-07] MEDS: QUEtiapine FUMARATE 100 MG TABLET PO SCH ×3 (07:57→16:28)
[2018-06-07] MEDS: DOCUSATE SODIUM 250 MG CAPSULE PO SCH ×2 (07:57→16:27)
[2018-06-07] MEDS: CITALOPRAM HYDROBROMIDE 10 MG TABLET PO SCH (07:58)
[2018-06-07] MEDS: BENZTROPINE MESYLATE 2 MG TABLET PO SCH ×2 (07:58→16:27)
[2018-06-07] MEDS: PROPRANOLOL HCL 10 MG TABLET PO SCH ×2 (07:58→16:28)
[2018-06-07] MEDS: OXcarbazepine 300 MG TABLET PO SCH ×2 (07:58→16:27)
[2018-06-07] MEDS: SODIUM CHLORIDE 1 GM TABLET PO SCH ×2 (07:58→16:27)
[2018-06-07 08:39] VITALS: BP 106/76
[2018-06-07] MEDS: NICOTINE 21 MG/24 HOUR PATCH TD SCH (09:00)
[2018-06-07] MEDS: LORazepam 2 MG TABLET PO PRN (15:34)
[2018-06-07 16:39] VITALS: BP 141/60
[2018-06-07] MEDS: QUEtiapine FUMARATE 200 MG TABLET PO SCH (20:35)
[2018-06-08 08:09] VITALS: BP 120/87
[2018-06-08] MEDS: PROPRANOLOL HCL 10 MG TABLET PO SCH ×2 (09:12→16:21)
[2018-06-08] MEDS: BENZTROPINE MESYLATE 2 MG TABLET PO SCH ×2 (09:12→16:21)
[2018-06-08] MEDS: CloZAPine 100 MG TABLET PO SCH ×2 (09:12→20:23)
[2018-06-08] MEDS: QUEtiapine FUMARATE 100 MG TABLET PO SCH ×3 (09:13→16:21)
[2018-06-08] MEDS: OXcarbazepine 300 MG TABLET PO SCH ×2 (09:13→16:21)
[2018-06-08] MEDS: CITALOPRAM HYDROBROMIDE 10 MG TABLET PO SCH (09:15)
[2018-06-08] MEDS: NICOTINE 21 MG/24 HOUR PATCH TD SCH (09:15)
[2018-06-08] MEDS: SODIUM CHLORIDE 1 GM TABLET PO SCH ×3 (09:15→16:21)
[2018-06-08] MEDS: DOCUSATE SODIUM 250 MG CAPSULE PO SCH ×2 (09:16→16:21)
[2018-06-08 09:20] LABS: EOSINOPHILS % (AUTO) 0 % (1.0-6.0); HEMATOCRIT 37.5 % (36-46); LYMPHOCYTES # (AUTO) 2.1 K/uL (1.0-4.8); LYMPHOCYTES % (AUTO) 41.4 % (22.0-44.0); MEAN CORPUSCULAR HEMOGLOBIN 32.5 pg (26.0-34.0); MEAN CORPUSCULAR HGB CONC 34.8 G/dL (31.0-37.0); MEAN CORPUSCULAR VOLUME 93 fL (80-100); MONOCYTES # (AUTO) 0.7 K/uL (0.1-1.0); MONOCYTES % (AUTO) 13.1 % (2.0-9.0); NEUTROPHILS # (AUTO) 2.3 K/uL (1.8-7.7); NEUTROPHILS % (AUTO) 45.5 % (40.0-70.0); PLATELET COUNT (AUTO) 203 K/uL (150-450); RED BLOOD CELL COUNT(AUTO) 4.02 MIL/uL (4.00-5.20); RED CELL DISTRIBUTION WIDTH 12.6 % (11.5-14.5)
[2018-06-08] MEDS: LORazepam 2 MG TABLET PO PRN (16:21)
[2018-06-08 17:03] VITALS: BP 137/90
[2018-06-08] MEDS: QUEtiapine FUMARATE 200 MG TABLET PO SCH (20:23)
[2018-06-09 08:00] VITALS: BP 101/78
[2018-06-09] MEDS: NICOTINE 21 MG/24 HOUR PATCH TD SCH (09:15)
[2018-06-09] MEDS: DOCUSATE SODIUM 250 MG CAPSULE PO SCH ×2 (09:15→17:11)
[2018-06-09] MEDS: PROPRANOLOL HCL 10 MG TABLET PO SCH ×2 (09:15→17:11)
[2018-06-09] MEDS: OXcarbazepine 300 MG TABLET PO SCH ×2 (09:15→17:11)
[2018-06-09] MEDS: SODIUM CHLORIDE 1 GM TABLET PO SCH ×3 (09:15→17:12)
[2018-06-09] MEDS: CloZAPine 100 MG TABLET PO SCH ×2 (09:15→20:19)
[2018-06-09] MEDS: QUEtiapine FUMARATE 100 MG TABLET PO SCH ×3 (09:15→17:11)
[2018-06-09] MEDS: CITALOPRAM HYDROBROMIDE 10 MG TABLET PO SCH (09:15)
[2018-06-09] MEDS: BENZTROPINE MESYLATE 2 MG TABLET PO SCH ×2 (09:16→17:11)
[2018-06-09 16:00] VITALS: BP 111/77
[2018-06-09] MEDS: LORazepam 2 MG TABLET PO PRN (17:11)
[2018-06-09] MEDS: QUEtiapine FUMARATE 200 MG TABLET PO SCH (20:19)
[2018-06-10 08:45] VITALS: BP 105/80
[2018-06-10] MEDS: PROPRANOLOL HCL 10 MG TABLET PO SCH ×2 (09:01→16:32)
[2018-06-10] MEDS: CloZAPine 100 MG TABLET PO SCH ×2 (09:04→20:15)
[2018-06-10] MEDS: OXcarbazepine 300 MG TABLET PO SCH ×2 (09:05→16:32)
[2018-06-10] MEDS: DOCUSATE SODIUM 250 MG CAPSULE PO SCH ×2 (09:05→16:32)
[2018-06-10] MEDS: BENZTROPINE MESYLATE 2 MG TABLET PO SCH ×2 (09:05→16:32)
[2018-06-10] MEDS: SODIUM CHLORIDE 1 GM TABLET PO SCH ×3 (09:05→16:32)
[2018-06-10] MEDS: QUEtiapine FUMARATE 100 MG TABLET PO SCH ×3 (09:05→16:33)
[2018-06-10] MEDS: CITALOPRAM HYDROBROMIDE 10 MG TABLET PO SCH (09:06)
[2018-06-10] MEDS: NICOTINE 21 MG/24 HOUR PATCH TD SCH (09:08)
[2018-06-10 16:52] VITALS: BP 123/77
[2018-06-10] MEDS: QUEtiapine FUMARATE 200 MG TABLET PO SCH (20:14)
[2018-06-11 08:00] VITALS: BP 115/68
[2018-06-11] MEDS: SODIUM CHLORIDE 1 GM TABLET PO SCH ×3 (08:52→16:42)
[2018-06-11] MEDS: BENZTROPINE MESYLATE 2 MG TABLET PO SCH ×2 (08:52→16:42)
[2018-06-11] MEDS: CloZAPine 100 MG TABLET PO SCH ×2 (08:52→20:28)
[2018-06-11] MEDS: OXcarbazepine 300 MG TABLET PO SCH ×2 (08:52→16:42)
[2018-06-11] MEDS: LORazepam 2 MG TABLET PO PRN (08:52)
[2018-06-11] MEDS: DOCUSATE SODIUM 250 MG CAPSULE PO SCH ×2 (08:52→16:42)
[2018-06-11] MEDS: CITALOPRAM HYDROBROMIDE 10 MG TABLET PO SCH (08:52)
[2018-06-11] MEDS: PROPRANOLOL HCL 10 MG TABLET PO SCH ×2 (08:52→16:42)
[2018-06-11] MEDS: QUEtiapine FUMARATE 100 MG TABLET PO SCH ×3 (08:53→16:42)
[2018-06-11] MEDS: NICOTINE 21 MG/24 HOUR PATCH TD SCH (09:00)
[2018-06-11 16:45] VITALS: BP 129/87
[2018-06-11] MEDS: QUEtiapine FUMARATE 200 MG TABLET PO SCH (20:29)
[2018-06-12 08:00] VITALS: BP 92/62
[2018-06-12] MEDS: CloZAPine 100 MG TABLET PO SCH ×2 (08:36→20:31)
[2018-06-12] MEDS: OXcarbazepine 300 MG TABLET PO SCH ×2 (08:36→16:16)
[2018-06-12] MEDS: CITALOPRAM HYDROBROMIDE 10 MG TABLET PO SCH (08:36)
[2018-06-12] MEDS: PROPRANOLOL HCL 10 MG TABLET PO SCH ×2 (08:36→16:16)
[2018-06-12] MEDS: DOCUSATE SODIUM 250 MG CAPSULE PO SCH ×2 (08:36→16:16)
[2018-06-12] MEDS: QUEtiapine FUMARATE 100 MG TABLET PO SCH ×3 (08:36→16:16)
[2018-06-12] MEDS: SODIUM CHLORIDE 1 GM TABLET PO SCH ×3 (08:37→17:42)
[2018-06-12] MEDS: BENZTROPINE MESYLATE 2 MG TABLET PO SCH ×2 (08:38→16:16)
[2018-06-12] MEDS: NICOTINE 21 MG/24 HOUR PATCH TD SCH (08:38)
[2018-06-12] MEDS: LORazepam 2 MG TABLET PO PRN (08:39)
[2018-06-12 18:07] VITALS: BP 126/78
[2018-06-12] MEDS: QUEtiapine FUMARATE 200 MG TABLET PO SCH (20:31)
[2018-06-13] MEDS: CloZAPine 100 MG TABLET PO SCH ×2 (08:38→21:17)
[2018-06-13] MEDS: OXcarbazepine 300 MG TABLET PO SCH ×2 (08:38→16:50)
[2018-06-13] MEDS: PROPRANOLOL HCL 10 MG TABLET PO SCH ×2 (08:38→16:49)
[2018-06-13] MEDS: BENZTROPINE MESYLATE 2 MG TABLET PO SCH ×2 (08:38→16:49)
[2018-06-13] MEDS: CITALOPRAM HYDROBROMIDE 10 MG TABLET PO SCH (08:38)
[2018-06-13] MEDS: LORazepam 2 MG TABLET PO PRN ×2 (08:38→19:48)
[2018-06-13] MEDS: QUEtiapine FUMARATE 100 MG TABLET PO SCH ×3 (08:39→16:50)
[2018-06-13] MEDS: SODIUM CHLORIDE 1 GM TABLET PO SCH ×3 (08:39→16:49)
[2018-06-13] MEDS: DOCUSATE SODIUM 250 MG CAPSULE PO SCH ×2 (08:39→16:50)
[2018-06-13] MEDS: NICOTINE 21 MG/24 HOUR PATCH TD SCH (08:46)
[2018-06-13] MEDS: ZOLPIDEM TARTRATE 10 MG TABLET PO PRN (19:48)
[2018-06-13] MEDS: QUEtiapine FUMARATE 200 MG TABLET PO SCH (20:21)
[2018-06-14 07:12] LABS: ANION GAP 8 mmol/L (8-16); CALCIUM, TOTAL 8.3 mg/dL (8.8-10.5); CARBON DIOXIDE 26 mmol/L (22-29); CHLORIDE 105 mmol/L (98-107); CREATININE 0.83 mg/dL (0.60-1.30); GLOMERULAR FILTR. RATE CALC > 60 mL/min (>60); GLUCOSE,RANDOM 79 mg/dL (70-110); POTASSIUM 3.7 mmol/L (3.5-5.1); SODIUM SERUM 139 mmol/L (136-145); UREA NITROGEN, BLOOD 8 mg/dL (7-18)
[2018-06-14] MEDS: OXcarbazepine 300 MG TABLET PO SCH ×2 (08:20→16:02)
[2018-06-14] MEDS: PROPRANOLOL HCL 10 MG TABLET PO SCH ×2 (08:20→16:02)
[2018-06-14] MEDS: CITALOPRAM HYDROBROMIDE 10 MG TABLET PO SCH (08:21)
[2018-06-14] MEDS: QUEtiapine FUMARATE 100 MG TABLET PO SCH ×3 (08:21→16:02)
[2018-06-14] MEDS: NICOTINE 21 MG/24 HOUR PATCH TD SCH (08:21)
[2018-06-14] MEDS: DOCUSATE SODIUM 250 MG CAPSULE PO SCH ×2 (08:21→16:01)
[2018-06-14] MEDS: BENZTROPINE MESYLATE 2 MG TABLET PO SCH ×2 (08:21→16:01)
[2018-06-14] MEDS: CloZAPine 100 MG TABLET PO SCH ×2 (08:21→20:12)
[2018-06-14] MEDS: SODIUM CHLORIDE 1 GM TABLET PO SCH ×3 (08:21→16:02)
[2018-06-14 08:40] VITALS: BP 122/84
[2018-06-14 16:58] VITALS: BP 117/71
[2018-06-14] MEDS: QUEtiapine FUMARATE 200 MG TABLET PO SCH (20:12)
[2018-06-15 10:30] VITALS: BP 118/73
[2018-06-15] MEDS: SODIUM CHLORIDE 1 GM TABLET PO SCH ×3 (10:38→17:08)
[2018-06-15] MEDS: BENZTROPINE MESYLATE 2 MG TABLET PO SCH ×2 (10:38→17:08)
[2018-06-15] MEDS: QUEtiapine FUMARATE 100 MG TABLET PO SCH ×3 (10:38→17:08)
[2018-06-15] MEDS: OXcarbazepine 300 MG TABLET PO SCH ×2 (10:38→17:08)
[2018-06-15] MEDS: PROPRANOLOL HCL 10 MG TABLET PO SCH ×2 (10:39→17:08)
[2018-06-15] MEDS: CloZAPine 100 MG TABLET PO SCH ×2 (10:39→20:55)
[2018-06-15] MEDS: CITALOPRAM HYDROBROMIDE 10 MG TABLET PO SCH (10:40)
[2018-06-15] MEDS: DOCUSATE SODIUM 250 MG CAPSULE PO SCH ×2 (10:58→17:08)
[2018-06-15 11:16] LABS: BASOPHILS % (AUTO) 0.1 % (0.0-2.0); EOSINOPHILS % (AUTO) 0 % (1.0-6.0); HEMATOCRIT 39.5 % (36-46); HEMOGLOBIN 13.6 g/dL (12.0-16.0); LYMPHOCYTES # (AUTO) 1.3 K/uL (1.0-4.8); MEAN CORPUSCULAR HEMOGLOBIN 32.2 pg (26.0-34.0); MEAN CORPUSCULAR HGB CONC 34.3 G/dL (31.0-37.0); MEAN CORPUSCULAR VOLUME 94 fL (80-100); MONOCYTES # (AUTO) 0.4 K/uL (0.1-1.0); MONOCYTES % (AUTO) 11.3 % (2.0-9.0); NEUTROPHILS # (AUTO) 2.2 K/uL (1.8-7.7); NEUTROPHILS % (AUTO) 56.6 % (40.0-70.0); PLATELET COUNT (AUTO) 216 K/uL (150-450); RED BLOOD CELL COUNT(AUTO) 4.21 MIL/uL (4.00-5.20); RED CELL DISTRIBUTION WIDTH 12.6 % (11.5-14.5)
[2018-06-15] MEDS: NICOTINE 21 MG/24 HOUR PATCH TD SCH (12:47)
[2018-06-15 17:12] VITALS: BP 132/83
[2018-06-15] MEDS: QUEtiapine FUMARATE 200 MG TABLET PO SCH (20:55)
[2018-06-16 07:05] LABS: EOSINOPHILS % (AUTO) 0 % (1.0-6.0); HEMATOCRIT 38.9 % (36-46); HEMOGLOBIN 13.5 g/dL (12.0-16.0); LYMPHOCYTES # (AUTO) 2.4 K/uL (1.0-4.8); LYMPHOCYTES % (AUTO) 44.3 % (22.0-44.0); MEAN CORPUSCULAR HEMOGLOBIN 32.7 pg (26.0-34.0); MEAN CORPUSCULAR HGB CONC 34.6 G/dL (31.0-37.0); MEAN CORPUSCULAR VOLUME 95 fL (80-100); MONOCYTES # (AUTO) 0.7 K/uL (0.1-1.0); MONOCYTES % (AUTO) 12.8 % (2.0-9.0); NEUTROPHILS # (AUTO) 2.3 K/uL (1.8-7.7); NEUTROPHILS % (AUTO) 42.9 % (40.0-70.0); PLATELET COUNT (AUTO) 220 K/uL (150-450); RED BLOOD CELL COUNT(AUTO) 4.11 MIL/uL (4.00-5.20); RED CELL DISTRIBUTION WIDTH 12.5 % (11.5-14.5)
[2018-06-16 08:30] VITALS: BP 104/66
[2018-06-16] MEDS: PROPRANOLOL HCL 10 MG TABLET PO SCH ×2 (08:52→16:00)
[2018-06-16] MEDS: BENZTROPINE MESYLATE 2 MG TABLET PO SCH ×2 (08:52→16:00)
[2018-06-16] MEDS: CloZAPine 100 MG TABLET PO SCH ×2 (08:52→20:31)
[2018-06-16] MEDS: QUEtiapine FUMARATE 100 MG TABLET PO SCH ×3 (08:52→16:00)
[2018-06-16] MEDS: DOCUSATE SODIUM 250 MG CAPSULE PO SCH ×2 (08:52→16:00)
[2018-06-16] MEDS: CITALOPRAM HYDROBROMIDE 10 MG TABLET PO SCH (08:52)
[2018-06-16] MEDS: OXcarbazepine 300 MG TABLET PO SCH ×2 (08:52→16:00)
[2018-06-16] MEDS: SODIUM CHLORIDE 1 GM TABLET PO SCH ×3 (08:53→16:00)
[2018-06-16] MEDS: NICOTINE 21 MG/24 HOUR PATCH TD SCH (08:58)
[2018-06-16] MEDS: QUEtiapine FUMARATE 200 MG TABLET PO SCH (20:30)
[2018-06-16 21:52] VITALS: BP 118/72
[2018-06-17 08:00] VITALS: BP 116/62
[2018-06-17] MEDS: SODIUM CHLORIDE 1 GM TABLET PO SCH ×3 (08:49→16:14)
[2018-06-17] MEDS: QUEtiapine FUMARATE 100 MG TABLET PO SCH ×3 (08:49→16:14)
[2018-06-17] MEDS: CITALOPRAM HYDROBROMIDE 10 MG TABLET PO SCH (08:49)
[2018-06-17] MEDS: DOCUSATE SODIUM 250 MG CAPSULE PO SCH ×2 (08:49→16:14)
[2018-06-17] MEDS: PROPRANOLOL HCL 10 MG TABLET PO SCH ×2 (08:50→16:14)
[2018-06-17] MEDS: NICOTINE 21 MG/24 HOUR PATCH TD SCH (08:50)
[2018-06-17] MEDS: BENZTROPINE MESYLATE 2 MG TABLET PO SCH ×2 (08:50→16:14)
[2018-06-17] MEDS: OXcarbazepine 300 MG TABLET PO SCH ×2 (08:50→16:14)
[2018-06-17] MEDS: CloZAPine 100 MG TABLET PO SCH ×2 (08:50→20:01)
[2018-06-17] MEDS: LORazepam 2 MG TABLET PO PRN (13:13)
[2018-06-17 17:05] VITALS: BP 110/88
[2018-06-17] MEDS: QUEtiapine FUMARATE 200 MG TABLET PO SCH (20:01)
[2018-06-18 08:00] VITALS: BP 113/72
[2018-06-18] MEDS: NICOTINE 21 MG/24 HOUR PATCH TD SCH (09:10)
[2018-06-18] MEDS: BENZTROPINE MESYLATE 2 MG TABLET PO SCH ×2 (09:11→16:20)
[2018-06-18] MEDS: SODIUM CHLORIDE 1 GM TABLET PO SCH ×3 (09:11→16:20)
[2018-06-18] MEDS: CITALOPRAM HYDROBROMIDE 10 MG TABLET PO SCH (09:11)
[2018-06-18] MEDS: OXcarbazepine 300 MG TABLET PO SCH ×2 (09:11→16:20)
[2018-06-18] MEDS: PROPRANOLOL HCL 10 MG TABLET PO SCH ×2 (09:11→16:20)
[2018-06-18] MEDS: CloZAPine 100 MG TABLET PO SCH ×2 (09:11→20:55)
[2018-06-18] MEDS: QUEtiapine FUMARATE 100 MG TABLET PO SCH ×3 (09:11→16:20)
[2018-06-18] MEDS: DOCUSATE SODIUM 250 MG CAPSULE PO SCH ×2 (09:12→16:22)
[2018-06-18 19:28] VITALS: BP 134/81
[2018-06-18] MEDS: QUEtiapine FUMARATE 200 MG TABLET PO SCH (20:54)
[2018-06-19] MEDS: SODIUM CHLORIDE 1 GM TABLET PO SCH ×3 (09:00→17:46)
[2018-06-19] MEDS: NICOTINE 21 MG/24 HOUR PATCH TD SCH (09:00)
[2018-06-19] MEDS: DOCUSATE SODIUM 250 MG CAPSULE PO SCH ×2 (09:00→17:46)
[2018-06-19] MEDS: CITALOPRAM HYDROBROMIDE 10 MG TABLET PO SCH (11:34)
[2018-06-19] MEDS: CloZAPine 100 MG TABLET PO SCH ×2 (11:35→20:48)
[2018-06-19] MEDS: BENZTROPINE MESYLATE 2 MG TABLET PO SCH ×2 (11:35→17:46)
[2018-06-19] MEDS: PROPRANOLOL HCL 10 MG TABLET PO SCH ×2 (11:35→17:46)
[2018-06-19] MEDS: QUEtiapine FUMARATE 100 MG TABLET PO SCH ×3 (11:36→17:46)
[2018-06-19] MEDS: OXcarbazepine 300 MG TABLET PO SCH ×2 (14:14→17:46)
[2018-06-19 16:39] VITALS: BP 119/78
[2018-06-19] MEDS: QUEtiapine FUMARATE 200 MG TABLET PO SCH (20:48)
[2018-06-20] MEDS: SODIUM CHLORIDE 1 GM TABLET PO SCH ×3 (09:34→16:22)
[2018-06-20] MEDS: CITALOPRAM HYDROBROMIDE 10 MG TABLET PO SCH (09:35)
[2018-06-20] MEDS: PROPRANOLOL HCL 10 MG TABLET PO SCH ×2 (09:38→16:22)
[2018-06-20] MEDS: BENZTROPINE MESYLATE 2 MG TABLET PO SCH ×2 (09:39→16:22)
[2018-06-20] MEDS: DOCUSATE SODIUM 250 MG CAPSULE PO SCH ×2 (09:39→16:22)
[2018-06-20] MEDS: CloZAPine 100 MG TABLET PO SCH ×2 (09:39→21:12)
[2018-06-20] MEDS: QUEtiapine FUMARATE 100 MG TABLET PO SCH ×3 (09:39→16:22)
[2018-06-20] MEDS: OXcarbazepine 300 MG TABLET PO SCH ×2 (09:39→16:22)
[2018-06-20] MEDS: NICOTINE 21 MG/24 HOUR PATCH TD SCH (09:39)
[2018-06-20 16:11] VITALS: BP 122/85
[2018-06-20 16:18] VITALS: BP 98/58
[2018-06-20] MEDS: QUEtiapine FUMARATE 200 MG TABLET PO SCH (21:12)
[2018-06-21] MEDS: BENZTROPINE MESYLATE 2 MG TABLET PO SCH ×2 (07:54→16:22)
[2018-06-21] MEDS: OXcarbazepine 300 MG TABLET PO SCH ×2 (07:54→16:22)
[2018-06-21] MEDS: DOCUSATE SODIUM 250 MG CAPSULE PO SCH ×2 (07:54→16:22)
[2018-06-21] MEDS: CITALOPRAM HYDROBROMIDE 10 MG TABLET PO SCH (07:54)
[2018-06-21] MEDS: QUEtiapine FUMARATE 100 MG TABLET PO SCH ×3 (07:54→16:22)
[2018-06-21] MEDS: PROPRANOLOL HCL 10 MG TABLET PO SCH ×2 (07:54→16:22)
[2018-06-21] MEDS: CloZAPine 100 MG TABLET PO SCH ×2 (07:54→20:09)
[2018-06-21] MEDS: SODIUM CHLORIDE 1 GM TABLET PO SCH ×3 (07:54→16:22)
[2018-06-21] MEDS: NICOTINE 21 MG/24 HOUR PATCH TD SCH (09:00)
[2018-06-21 16:19] VITALS: BP 117/79
[2018-06-21] MEDS: QUEtiapine FUMARATE 200 MG TABLET PO SCH (20:09)
[2018-06-22 07:19] LABS: BASOPHILS % (AUTO) 0.1 % (0.0-2.0); EOSINOPHILS % (AUTO) 0 % (1.0-6.0); HEMATOCRIT 38.4 % (36-46); HEMOGLOBIN 13.4 g/dL (12.0-16.0); LYMPHOCYTES # (AUTO) 2.5 K/uL (1.0-4.8); LYMPHOCYTES % (AUTO) 44.4 % (22.0-44.0); MEAN CORPUSCULAR HEMOGLOBIN 32.7 pg (26.0-34.0); MEAN CORPUSCULAR HGB CONC 34.8 G/dL (31.0-37.0); MEAN CORPUSCULAR VOLUME 94 fL (80-100); MONOCYTES # (AUTO) 0.6 K/uL (0.1-1.0); MONOCYTES % (AUTO) 11.5 % (2.0-9.0); NEUTROPHILS # (AUTO) 2.4 K/uL (1.8-7.7); PLATELET COUNT (AUTO) 218 K/uL (150-450); RED BLOOD CELL COUNT(AUTO) 4.09 MIL/uL (4.00-5.20); RED CELL DISTRIBUTION WIDTH 12.8 % (11.5-14.5)
[2018-06-22] MEDS: QUEtiapine FUMARATE 100 MG TABLET PO SCH ×3 (09:18→16:05)
[2018-06-22] MEDS: DOCUSATE SODIUM 250 MG CAPSULE PO SCH ×2 (09:18→16:05)
[2018-06-22] MEDS: CITALOPRAM HYDROBROMIDE 10 MG TABLET PO SCH (09:18)
[2018-06-22] MEDS: BENZTROPINE MESYLATE 2 MG TABLET PO SCH ×2 (09:18→16:07)
[2018-06-22] MEDS: SODIUM CHLORIDE 1 GM TABLET PO SCH ×3 (09:18→16:05)
[2018-06-22] MEDS: PROPRANOLOL HCL 10 MG TABLET PO SCH ×2 (09:18→16:05)
[2018-06-22] MEDS: OXcarbazepine 300 MG TABLET PO SCH ×2 (09:18→16:05)
[2018-06-22] MEDS: CloZAPine 100 MG TABLET PO SCH ×2 (09:18→20:08)
[2018-06-22] MEDS: NICOTINE 21 MG/24 HOUR PATCH TD SCH (09:19)
[2018-06-22 16:09] VITALS: BP 113/77
[2018-06-22] MEDS: QUEtiapine FUMARATE 200 MG TABLET PO SCH (20:08)
[2018-06-23 07:11] LABS: ANION GAP 6 mmol/L (8-16); CALCIUM, TOTAL 7.9 mg/dL (8.8-10.5); CARBON DIOXIDE 28 mmol/L (22-29); CHLORIDE 106 mmol/L (98-107); CREATININE 0.79 mg/dL (0.60-1.30); GLOMERULAR FILTR. RATE CALC > 60 mL/min (>60); GLUCOSE,RANDOM 87 mg/dL (70-110); POTASSIUM 3.8 mmol/L (3.5-5.1); SODIUM SERUM 140 mmol/L (136-145); UREA NITROGEN, BLOOD 15 mg/dL (7-18)
[2018-06-23] MEDS: CloZAPine 100 MG TABLET PO SCH ×2 (08:13→20:05)
[2018-06-23] MEDS: PROPRANOLOL HCL 10 MG TABLET PO SCH ×2 (08:13→16:27)
[2018-06-23] MEDS: SODIUM CHLORIDE 1 GM TABLET PO SCH ×3 (08:13→16:23)
[2018-06-23] MEDS: OXcarbazepine 300 MG TABLET PO SCH ×2 (08:13→16:23)
[2018-06-23] MEDS: DOCUSATE SODIUM 250 MG CAPSULE PO SCH ×2 (08:13→16:23)
[2018-06-23] MEDS: CITALOPRAM HYDROBROMIDE 10 MG TABLET PO SCH (08:13)
[2018-06-23] MEDS: BENZTROPINE MESYLATE 2 MG TABLET PO SCH ×2 (08:14→16:23)
[2018-06-23] MEDS: QUEtiapine FUMARATE 100 MG TABLET PO SCH ×3 (08:14→16:23)
[2018-06-23] MEDS: NICOTINE 21 MG/24 HOUR PATCH TD SCH (08:19)
[2018-06-23 08:30] VITALS: BP 98/64
[2018-06-23 16:00] VITALS: BP 121/79
[2018-06-23] MEDS: QUEtiapine FUMARATE 200 MG TABLET PO SCH (20:05)
[2018-06-24] MEDS: BENZTROPINE MESYLATE 2 MG TABLET PO SCH ×2 (08:10→16:24)
[2018-06-24] MEDS: PROPRANOLOL HCL 10 MG TABLET PO SCH ×2 (08:11→16:27)
[2018-06-24] MEDS: OXcarbazepine 300 MG TABLET PO SCH ×2 (08:11→16:24)
[2018-06-24] MEDS: QUEtiapine FUMARATE 100 MG TABLET PO SCH ×3 (08:11→16:24)
[2018-06-24] MEDS: CITALOPRAM HYDROBROMIDE 10 MG TABLET PO SCH (08:11)
[2018-06-24] MEDS: CloZAPine 100 MG TABLET PO SCH ×2 (08:11→20:22)
[2018-06-24] MEDS: DOCUSATE SODIUM 250 MG CAPSULE PO SCH ×2 (08:11→16:24)
[2018-06-24] MEDS: NICOTINE 21 MG/24 HOUR PATCH TD SCH (08:12)
[2018-06-24] MEDS: SODIUM CHLORIDE 1 GM TABLET PO SCH ×3 (08:12→16:24)
[2018-06-24 09:24] VITALS: BP 127/68
[2018-06-24 16:28] VITALS: BP 144/88
[2018-06-24] MEDS: QUEtiapine FUMARATE 200 MG TABLET PO SCH (20:22)
[2018-06-25] MEDS: DOCUSATE SODIUM 250 MG CAPSULE PO SCH ×2 (08:25→16:09)
[2018-06-25] MEDS: SODIUM CHLORIDE 1 GM TABLET PO SCH ×3 (08:26→16:09)
[2018-06-25] MEDS: CloZAPine 100 MG TABLET PO SCH ×2 (08:26→20:06)
[2018-06-25] MEDS: CITALOPRAM HYDROBROMIDE 10 MG TABLET PO SCH (08:26)
[2018-06-25] MEDS: OXcarbazepine 300 MG TABLET PO SCH ×2 (08:26→16:09)
[2018-06-25] MEDS: QUEtiapine FUMARATE 100 MG TABLET PO SCH ×3 (08:26→16:09)
[2018-06-25] MEDS: BENZTROPINE MESYLATE 2 MG TABLET PO SCH ×2 (08:26→16:09)
[2018-06-25] MEDS: NICOTINE 21 MG/24 HOUR PATCH TD SCH (08:27)
[2018-06-25] MEDS: PROPRANOLOL HCL 10 MG TABLET PO SCH ×2 (08:36→16:09)
[2018-06-25 13:52] VITALS: BP 105/62
[2018-06-25 16:30] VITALS: BP 102/58
[2018-06-25] MEDS: QUEtiapine FUMARATE 200 MG TABLET PO SCH (20:06)
[2018-06-26 08:00] VITALS: BP 115/61
[2018-06-26] MEDS: NICOTINE 21 MG/24 HOUR PATCH TD SCH (09:00)
[2018-06-26] MEDS: DOCUSATE SODIUM 250 MG CAPSULE PO SCH ×2 (10:06→16:16)
[2018-06-26] MEDS: QUEtiapine FUMARATE 100 MG TABLET PO SCH ×3 (10:06→16:16)
[2018-06-26] MEDS: OXcarbazepine 300 MG TABLET PO SCH ×2 (10:07→16:16)
[2018-06-26] MEDS: BENZTROPINE MESYLATE 2 MG TABLET PO SCH ×2 (10:07→16:16)
[2018-06-26] MEDS: SODIUM CHLORIDE 1 GM TABLET PO SCH ×3 (10:07→16:17)
[2018-06-26] MEDS: LORazepam 2 MG TABLET PO PRN (10:07)
[2018-06-26] MEDS: CloZAPine 100 MG TABLET PO SCH ×2 (10:07→21:30)
[2018-06-26] MEDS: PROPRANOLOL HCL 10 MG TABLET PO SCH ×2 (10:07→16:17)
[2018-06-26] MEDS: CITALOPRAM HYDROBROMIDE 10 MG TABLET PO SCH (10:07)
[2018-06-26 16:04] VITALS: BP 124/69
[2018-06-26] MEDS: QUEtiapine FUMARATE 200 MG TABLET PO SCH (21:30)
[2018-06-27] MEDS: NICOTINE 21 MG/24 HOUR PATCH TD SCH (09:00)
[2018-06-27] MEDS: BENZTROPINE MESYLATE 2 MG TABLET PO SCH ×2 (09:40→16:02)
[2018-06-27] MEDS: SODIUM CHLORIDE 1 GM TABLET PO SCH ×3 (09:40→16:02)
[2018-06-27] MEDS: QUEtiapine FUMARATE 100 MG TABLET PO SCH ×3 (09:40→16:02)
[2018-06-27] MEDS: CloZAPine 100 MG TABLET PO SCH ×2 (09:40→21:10)
[2018-06-27] MEDS: DOCUSATE SODIUM 250 MG CAPSULE PO SCH ×2 (09:40→16:02)
[2018-06-27] MEDS: CITALOPRAM HYDROBROMIDE 10 MG TABLET PO SCH (09:40)
[2018-06-27] MEDS: OXcarbazepine 300 MG TABLET PO SCH ×2 (09:41→16:02)
[2018-06-27] MEDS: PROPRANOLOL HCL 10 MG TABLET PO SCH ×2 (09:41→16:02)
[2018-06-27 16:57] VITALS: BP 115/74
[2018-06-27] MEDS: QUEtiapine FUMARATE 200 MG TABLET PO SCH (21:10)
[2018-06-28] MEDS: NICOTINE 21 MG/24 HOUR PATCH TD SCH (09:00)
[2018-06-28 09:25] VITALS: BP 108/66
[2018-06-28] MEDS: CITALOPRAM HYDROBROMIDE 10 MG TABLET PO SCH (09:28)
[2018-06-28] MEDS: OXcarbazepine 300 MG TABLET PO SCH ×2 (09:29→16:00)
[2018-06-28] MEDS: BENZTROPINE MESYLATE 2 MG TABLET PO SCH ×2 (09:29→16:01)
[2018-06-28] MEDS: CloZAPine 100 MG TABLET PO SCH ×2 (09:29→20:05)
[2018-06-28] MEDS: SODIUM CHLORIDE 1 GM TABLET PO SCH ×3 (09:30→16:00)
[2018-06-28] MEDS: PROPRANOLOL HCL 10 MG TABLET PO SCH ×2 (09:30→16:00)
[2018-06-28] MEDS: QUEtiapine FUMARATE 100 MG TABLET PO SCH ×3 (09:30→16:01)
[2018-06-28] MEDS: DOCUSATE SODIUM 250 MG CAPSULE PO SCH ×2 (09:33→16:13)
[2018-06-28 17:14] VITALS: BP 128/80
[2018-06-28] MEDS: QUEtiapine FUMARATE 200 MG TABLET PO SCH (20:05)
[2018-06-29] MEDS: BENZTROPINE MESYLATE 2 MG TABLET PO SCH ×2 (08:56→16:11)
[2018-06-29] MEDS: CITALOPRAM HYDROBROMIDE 10 MG TABLET PO SCH (08:56)
[2018-06-29] MEDS: CloZAPine 100 MG TABLET PO SCH ×2 (08:56→20:30)
[2018-06-29] MEDS: SODIUM CHLORIDE 1 GM TABLET PO SCH ×3 (08:57→16:11)
[2018-06-29] MEDS: DOCUSATE SODIUM 250 MG CAPSULE PO SCH ×2 (08:57→16:11)
[2018-06-29] MEDS: QUEtiapine FUMARATE 100 MG TABLET PO SCH ×3 (08:57→16:11)
[2018-06-29] MEDS: PROPRANOLOL HCL 10 MG TABLET PO SCH ×2 (08:57→16:11)
[2018-06-29] MEDS: OXcarbazepine 300 MG TABLET PO SCH ×2 (08:57→16:11)
[2018-06-29 09:00] VITALS: BP 110/68
[2018-06-29] MEDS: NICOTINE 21 MG/24 HOUR PATCH TD SCH (09:00)
[2018-06-29 11:03] LABS: BASOPHILS % (AUTO) 0.1 % (0.0-2.0); EOSINOPHILS % (AUTO) 0 % (1.0-6.0); HEMATOCRIT 40.6 % (36-46); HEMOGLOBIN 14.3 g/dL (12.0-16.0); LYMPHOCYTES # (AUTO) 2.1 K/uL (1.0-4.8); LYMPHOCYTES % (AUTO) 37.8 % (22.0-44.0); MEAN CORPUSCULAR HEMOGLOBIN 32.8 pg (26.0-34.0); MEAN CORPUSCULAR HGB CONC 35.2 G/dL (31.0-37.0); MEAN CORPUSCULAR VOLUME 93 fL (80-100); MONOCYTES # (AUTO) 0.8 K/uL (0.1-1.0); MONOCYTES % (AUTO) 13.8 % (2.0-9.0); NEUTROPHILS # (AUTO) 2.7 K/uL (1.8-7.7); NEUTROPHILS % (AUTO) 48.3 % (40.0-70.0); PLATELET COUNT (AUTO) 218 K/uL (150-450); RED BLOOD CELL COUNT(AUTO) 4.35 MIL/uL (4.00-5.20); RED CELL DISTRIBUTION WIDTH 12.7 % (11.5-14.5)
[2018-06-29 16:30] VITALS: BP 131/91
[2018-06-29] MEDS: QUEtiapine FUMARATE 200 MG TABLET PO SCH (20:30)
[2018-06-29] MEDS: ZOLPIDEM TARTRATE 10 MG TABLET PO PRN (22:05)
[2018-06-30] MEDS: PROPRANOLOL HCL 10 MG TABLET PO SCH ×2 (08:49→17:06)
[2018-06-30] MEDS: CloZAPine 100 MG TABLET PO SCH ×2 (08:49→20:55)
[2018-06-30] MEDS: OXcarbazepine 300 MG TABLET PO SCH ×2 (08:49→17:06)
[2018-06-30] MEDS: BENZTROPINE MESYLATE 2 MG TABLET PO SCH ×2 (08:49→17:06)
[2018-06-30] MEDS: DOCUSATE SODIUM 250 MG CAPSULE PO SCH ×2 (08:49→17:06)
[2018-06-30] MEDS: QUEtiapine FUMARATE 100 MG TABLET PO SCH ×3 (08:49→17:06)
[2018-06-30] MEDS: SODIUM CHLORIDE 1 GM TABLET PO SCH ×3 (08:50→17:06)
[2018-06-30] MEDS: CITALOPRAM HYDROBROMIDE 10 MG TABLET PO SCH (08:50)
[2018-06-30] MEDS: NICOTINE 21 MG/24 HOUR PATCH TD SCH (09:00)
[2018-06-30 12:46] VITALS: BP 115/76
[2018-06-30] MEDS: LORazepam 2 MG TABLET PO PRN (16:05)
[2018-06-30 16:25] VITALS: BP 134/77
[2018-06-30] MEDS: QUEtiapine FUMARATE 200 MG TABLET PO SCH (20:54)
[2018-07-01 08:40] VITALS: BP 116/74
[2018-07-01] MEDS: CloZAPine 100 MG TABLET PO SCH ×2 (08:56→20:54)
[2018-07-01] MEDS: PROPRANOLOL HCL 10 MG TABLET PO SCH ×2 (08:56→16:51)
[2018-07-01] MEDS: SODIUM CHLORIDE 1 GM TABLET PO SCH ×3 (08:56→16:52)
[2018-07-01] MEDS: BENZTROPINE MESYLATE 2 MG TABLET PO SCH ×2 (08:56→16:52)
[2018-07-01] MEDS: QUEtiapine FUMARATE 100 MG TABLET PO SCH ×3 (08:56→16:52)
[2018-07-01] MEDS: DOCUSATE SODIUM 250 MG CAPSULE PO SCH ×2 (08:56→16:52)
[2018-07-01] MEDS: CITALOPRAM HYDROBROMIDE 10 MG TABLET PO SCH (08:56)
[2018-07-01] MEDS: OXcarbazepine 300 MG TABLET PO SCH ×2 (08:57→16:51)
[2018-07-01] MEDS: NICOTINE 21 MG/24 HOUR PATCH TD SCH (09:00)
[2018-07-01 16:09] VITALS: BP 137/81
[2018-07-01] MEDS: LORazepam 2 MG TABLET PO PRN (16:51)
[2018-07-01] MEDS: ZOLPIDEM TARTRATE 10 MG TABLET PO PRN (20:53)
[2018-07-01] MEDS: QUEtiapine FUMARATE 200 MG TABLET PO SCH (20:54)
[2018-07-02] MEDS: DOCUSATE SODIUM 250 MG CAPSULE PO SCH ×2 (08:14→16:10)
[2018-07-02] MEDS: OXcarbazepine 300 MG TABLET PO SCH ×2 (08:14→16:10)
[2018-07-02] MEDS: QUEtiapine FUMARATE 100 MG TABLET PO SCH ×3 (08:14→16:10)
[2018-07-02] MEDS: SODIUM CHLORIDE 1 GM TABLET PO SCH ×3 (08:14→16:10)
[2018-07-02] MEDS: CITALOPRAM HYDROBROMIDE 10 MG TABLET PO SCH (08:14)
[2018-07-02] MEDS: PROPRANOLOL HCL 10 MG TABLET PO SCH ×2 (08:14→16:10)
[2018-07-02] MEDS: BENZTROPINE MESYLATE 2 MG TABLET PO SCH ×2 (08:14→16:10)
[2018-07-02] MEDS: CloZAPine 100 MG TABLET PO SCH ×2 (08:14→22:00)
[2018-07-02] MEDS: NICOTINE 21 MG/24 HOUR PATCH TD SCH (09:00)
[2018-07-02 16:13] VITALS: BP 114/66
[2018-07-02] MEDS: ZOLPIDEM TARTRATE 10 MG TABLET PO PRN (21:00)
[2018-07-02] MEDS: QUEtiapine FUMARATE 200 MG TABLET PO SCH (22:00)
[2018-07-03] MEDS: OXcarbazepine 300 MG TABLET PO SCH ×2 (08:52→16:32)
[2018-07-03] MEDS: CITALOPRAM HYDROBROMIDE 10 MG TABLET PO SCH (08:52)
[2018-07-03] MEDS: BENZTROPINE MESYLATE 2 MG TABLET PO SCH ×2 (08:53→16:31)
[2018-07-03] MEDS: PROPRANOLOL HCL 10 MG TABLET PO SCH ×2 (08:53→16:32)
[2018-07-03] MEDS: QUEtiapine FUMARATE 100 MG TABLET PO SCH ×4 (08:53→16:31)
[2018-07-03] MEDS: SODIUM CHLORIDE 1 GM TABLET PO SCH ×3 (08:53→16:32)
[2018-07-03] MEDS: CloZAPine 100 MG TABLET PO SCH ×2 (08:53→21:04)
[2018-07-03] MEDS: DOCUSATE SODIUM 250 MG CAPSULE PO SCH ×2 (08:54→16:32)
[2018-07-03] MEDS: NICOTINE 21 MG/24 HOUR PATCH TD SCH (09:00)
[2018-07-03 13:35] VITALS: BP 105/79
[2018-07-03] MEDS: OLANZapine 5 MG TABLET PO PRN (16:31)
[2018-07-03 17:15] VITALS: BP 124/74
[2018-07-03] MEDS: QUEtiapine FUMARATE 200 MG TABLET PO SCH (21:04)
[2018-07-03] MEDS: ZOLPIDEM TARTRATE 10 MG TABLET PO PRN (21:05)
[2018-07-04 08:38] VITALS: BP 131/90
[2018-07-04] MEDS: NICOTINE 21 MG/24 HOUR PATCH TD SCH (09:00)
[2018-07-04] MEDS: OXcarbazepine 300 MG TABLET PO SCH ×2 (09:54→17:53)
[2018-07-04] MEDS: BENZTROPINE MESYLATE 2 MG TABLET PO SCH ×2 (09:54→17:53)
[2018-07-04] MEDS: QUEtiapine FUMARATE 100 MG TABLET PO SCH ×3 (09:54→17:53)
[2018-07-04] MEDS: PROPRANOLOL HCL 10 MG TABLET PO SCH ×2 (09:54→17:53)
[2018-07-04] MEDS: DOCUSATE SODIUM 250 MG CAPSULE PO SCH ×2 (09:54→17:53)
[2018-07-04] MEDS: CITALOPRAM HYDROBROMIDE 10 MG TABLET PO SCH (09:55)
[2018-07-04] MEDS: CloZAPine 100 MG TABLET PO SCH ×2 (09:55→20:46)
[2018-07-04] MEDS: SODIUM CHLORIDE 1 GM TABLET PO SCH ×3 (09:55→17:54)
[2018-07-04 18:00] VITALS: BP 117/73
[2018-07-04] MEDS: QUEtiapine FUMARATE 200 MG TABLET PO SCH (20:45)
[2018-07-05] MEDS: QUEtiapine FUMARATE 100 MG TABLET PO SCH ×3 (08:50→16:45)
[2018-07-05] MEDS: CloZAPine 100 MG TABLET PO SCH ×2 (08:50→20:25)
[2018-07-05] MEDS: PROPRANOLOL HCL 10 MG TABLET PO SCH ×2 (08:50→16:45)
[2018-07-05] MEDS: SODIUM CHLORIDE 1 GM TABLET PO SCH ×3 (08:50→16:45)
[2018-07-05] MEDS: DOCUSATE SODIUM 250 MG CAPSULE PO SCH ×2 (08:50→16:45)
[2018-07-05] MEDS: BENZTROPINE MESYLATE 2 MG TABLET PO SCH ×2 (08:50→16:45)
[2018-07-05] MEDS: CITALOPRAM HYDROBROMIDE 10 MG TABLET PO SCH (08:50)
[2018-07-05] MEDS: OXcarbazepine 300 MG TABLET PO SCH ×2 (08:50→16:45)
[2018-07-05] MEDS: NICOTINE 21 MG/24 HOUR PATCH TD SCH (08:50)
[2018-07-05 09:15] VITALS: BP 99/50
[2018-07-05 16:38] VITALS: BP 97/61
[2018-07-05] MEDS: QUEtiapine FUMARATE 200 MG TABLET PO SCH (20:25)
[2018-07-06 06:50] LABS: BASOPHILS % (AUTO) 0.1 % (0.0-2.0); EOSINOPHILS % (AUTO) 0 % (1.0-6.0); HEMATOCRIT 37.1 % (36-46); HEMOGLOBIN 13.3 g/dL (12.0-16.0); LYMPHOCYTES # (AUTO) 2.5 K/uL (1.0-4.8); LYMPHOCYTES % (AUTO) 40.7 % (22.0-44.0); MEAN CORPUSCULAR HEMOGLOBIN 32.6 pg (26.0-34.0); MEAN CORPUSCULAR HGB CONC 35.9 G/dL (31.0-37.0); MEAN CORPUSCULAR VOLUME 91 fL (80-100); MONOCYTES # (AUTO) 0.7 K/uL (0.1-1.0); MONOCYTES % (AUTO) 12.3 % (2.0-9.0); NEUTROPHILS # (AUTO) 2.8 K/uL (1.8-7.7); NEUTROPHILS % (AUTO) 46.9 % (40.0-70.0); PLATELET COUNT (AUTO) 209 K/uL (150-450); RED BLOOD CELL COUNT(AUTO) 4.07 MIL/uL (4.00-5.20); RED CELL DISTRIBUTION WIDTH 12.6 % (11.5-14.5)
[2018-07-06] MEDS: BENZTROPINE MESYLATE 2 MG TABLET PO SCH ×2 (07:48→16:09)
[2018-07-06] MEDS: SODIUM CHLORIDE 1 GM TABLET PO SCH ×3 (07:48→16:09)
[2018-07-06] MEDS: QUEtiapine FUMARATE 100 MG TABLET PO SCH ×3 (07:48→16:09)
[2018-07-06] MEDS: CITALOPRAM HYDROBROMIDE 10 MG TABLET PO SCH (07:48)
[2018-07-06] MEDS: CloZAPine 100 MG TABLET PO SCH ×2 (07:48→20:22)
[2018-07-06] MEDS: PROPRANOLOL HCL 10 MG TABLET PO SCH ×2 (07:49→16:08)
[2018-07-06] MEDS: OXcarbazepine 300 MG TABLET PO SCH ×2 (07:49→16:09)
[2018-07-06] MEDS: NICOTINE 21 MG/24 HOUR PATCH TD SCH (07:50)
[2018-07-06] MEDS: DOCUSATE SODIUM 250 MG CAPSULE PO SCH ×2 (08:03→16:09)
[2018-07-06 08:51] VITALS: BP 126/78
[2018-07-06 16:09] VITALS: BP 140/85
[2018-07-06] MEDS: QUEtiapine FUMARATE 200 MG TABLET PO SCH (20:22)
[2018-07-07 08:00] VITALS: BP 121/71
[2018-07-07] MEDS: NICOTINE 21 MG/24 HOUR PATCH TD SCH (09:00)
[2018-07-07] MEDS: OXcarbazepine 300 MG TABLET PO SCH ×2 (09:04→17:19)
[2018-07-07] MEDS: PROPRANOLOL HCL 10 MG TABLET PO SCH ×2 (09:05→17:19)
[2018-07-07] MEDS: QUEtiapine FUMARATE 100 MG TABLET PO SCH ×3 (09:05→17:19)
[2018-07-07] MEDS: DOCUSATE SODIUM 250 MG CAPSULE PO SCH ×2 (09:05→17:19)
[2018-07-07] MEDS: CloZAPine 100 MG TABLET PO SCH ×2 (09:05→20:14)
[2018-07-07] MEDS: SODIUM CHLORIDE 1 GM TABLET PO SCH ×3 (09:05→17:20)
[2018-07-07] MEDS: CITALOPRAM HYDROBROMIDE 10 MG TABLET PO SCH (09:05)
[2018-07-07] MEDS: BENZTROPINE MESYLATE 2 MG TABLET PO SCH ×2 (09:06→17:20)
[2018-07-07 16:44] VITALS: BP 121/72
[2018-07-07] MEDS: QUEtiapine FUMARATE 200 MG TABLET PO SCH (20:14)
[2018-07-07] MEDS: ZOLPIDEM TARTRATE 10 MG TABLET PO PRN (22:45)
[2018-07-08] MEDS: CloZAPine 100 MG TABLET PO SCH ×2 (08:16→20:18)
[2018-07-08] MEDS: SODIUM CHLORIDE 1 GM TABLET PO SCH ×3 (08:16→16:22)
[2018-07-08] MEDS: QUEtiapine FUMARATE 100 MG TABLET PO SCH ×3 (08:16→16:22)
[2018-07-08] MEDS: OXcarbazepine 300 MG TABLET PO SCH ×2 (08:17→16:22)
[2018-07-08] MEDS: DOCUSATE SODIUM 250 MG CAPSULE PO SCH ×2 (08:17→16:22)
[2018-07-08] MEDS: PROPRANOLOL HCL 10 MG TABLET PO SCH ×2 (08:17→16:23)
[2018-07-08] MEDS: BENZTROPINE MESYLATE 2 MG TABLET PO SCH ×2 (08:17→16:22)
[2018-07-08] MEDS: CITALOPRAM HYDROBROMIDE 10 MG TABLET PO SCH (08:17)
[2018-07-08 08:40] VITALS: BP 109/63
[2018-07-08] MEDS: NICOTINE 21 MG/24 HOUR PATCH TD SCH (09:00)
[2018-07-08 16:31] VITALS: BP 96/63
[2018-07-08] MEDS: QUEtiapine FUMARATE 200 MG TABLET PO SCH (20:19)
[2018-07-09 09:00] VITALS: BP 126/78
[2018-07-09] MEDS: QUEtiapine FUMARATE 100 MG TABLET PO SCH ×3 (09:15→16:14)
[2018-07-09] MEDS: PROPRANOLOL HCL 10 MG TABLET PO SCH ×2 (09:15→16:14)
[2018-07-09] MEDS: DOCUSATE SODIUM 250 MG CAPSULE PO SCH ×2 (09:15→16:14)
[2018-07-09] MEDS: CloZAPine 100 MG TABLET PO SCH ×2 (09:16→20:33)
[2018-07-09] MEDS: OXcarbazepine 300 MG TABLET PO SCH ×2 (09:16→16:14)
[2018-07-09] MEDS: CITALOPRAM HYDROBROMIDE 10 MG TABLET PO SCH (09:16)
[2018-07-09] MEDS: BENZTROPINE MESYLATE 2 MG TABLET PO SCH ×2 (09:16→16:14)
[2018-07-09] MEDS: SODIUM CHLORIDE 1 GM TABLET PO SCH ×3 (09:16→16:14)
[2018-07-09] MEDS: NICOTINE 21 MG/24 HOUR PATCH TD SCH (09:17)
[2018-07-09 16:38] VITALS: BP 121/79
[2018-07-09] MEDS: QUEtiapine FUMARATE 200 MG TABLET PO SCH (20:33)
[2018-07-10] MEDS: CloZAPine 100 MG TABLET PO SCH ×2 (08:25→20:13)
[2018-07-10] MEDS: QUEtiapine FUMARATE 100 MG TABLET PO SCH ×3 (08:25→16:35)
[2018-07-10] MEDS: OXcarbazepine 300 MG TABLET PO SCH ×2 (08:25→16:35)
[2018-07-10] MEDS: PROPRANOLOL HCL 10 MG TABLET PO SCH ×2 (08:25→16:35)
[2018-07-10] MEDS: DOCUSATE SODIUM 250 MG CAPSULE PO SCH ×2 (08:25→16:35)
[2018-07-10] MEDS: CITALOPRAM HYDROBROMIDE 10 MG TABLET PO SCH (08:26)
[2018-07-10] MEDS: NICOTINE 21 MG/24 HOUR PATCH TD SCH (08:26)
[2018-07-10] MEDS: SODIUM CHLORIDE 1 GM TABLET PO SCH ×3 (08:26→16:35)
[2018-07-10] MEDS: BENZTROPINE MESYLATE 2 MG TABLET PO SCH ×2 (08:27→16:35)
[2018-07-10 08:30] VITALS: BP 127/79
[2018-07-10 16:44] VITALS: BP 115/72
[2018-07-10] MEDS: QUEtiapine FUMARATE 200 MG TABLET PO SCH (20:13)
[2018-07-11 08:00] VITALS: BP 116/64
[2018-07-11] MEDS: DOCUSATE SODIUM 250 MG CAPSULE PO SCH ×2 (08:42→18:00)
[2018-07-11] MEDS: PROPRANOLOL HCL 10 MG TABLET PO SCH ×2 (08:43→18:00)
[2018-07-11] MEDS: CloZAPine 100 MG TABLET PO SCH ×2 (08:43→21:45)
[2018-07-11] MEDS: CITALOPRAM HYDROBROMIDE 10 MG TABLET PO SCH (08:43)
[2018-07-11] MEDS: BENZTROPINE MESYLATE 2 MG TABLET PO SCH ×2 (08:43→18:00)
[2018-07-11] MEDS: OXcarbazepine 300 MG TABLET PO SCH ×2 (08:43→18:00)
[2018-07-11] MEDS: SODIUM CHLORIDE 1 GM TABLET PO SCH ×3 (08:43→18:00)
[2018-07-11] MEDS: QUEtiapine FUMARATE 100 MG TABLET PO SCH ×3 (08:54→18:00)
[2018-07-11] MEDS: NICOTINE 21 MG/24 HOUR PATCH TD SCH (09:00)
[2018-07-11] MEDS: ZOLPIDEM TARTRATE 10 MG TABLET PO PRN (21:44)
[2018-07-11] MEDS: QUEtiapine FUMARATE 200 MG TABLET PO SCH (21:44)
[2018-07-12 08:00] VITALS: BP 119/62
[2018-07-12] MEDS: SODIUM CHLORIDE 1 GM TABLET PO SCH ×3 (08:10→16:23)
[2018-07-12] MEDS: CITALOPRAM HYDROBROMIDE 10 MG TABLET PO SCH (08:10)
[2018-07-12] MEDS: QUEtiapine FUMARATE 100 MG TABLET PO SCH ×3 (08:10→16:23)
[2018-07-12] MEDS: DOCUSATE SODIUM 250 MG CAPSULE PO SCH ×2 (08:10→16:23)
[2018-07-12] MEDS: PROPRANOLOL HCL 10 MG TABLET PO SCH ×2 (08:10→16:23)
[2018-07-12] MEDS: BENZTROPINE MESYLATE 2 MG TABLET PO SCH ×2 (08:10→16:22)
[2018-07-12] MEDS: CloZAPine 100 MG TABLET PO SCH ×2 (08:10→20:39)
[2018-07-12] MEDS: OXcarbazepine 300 MG TABLET PO SCH ×2 (08:10→16:23)
[2018-07-12] MEDS: NICOTINE 21 MG/24 HOUR PATCH TD SCH (09:00)
[2018-07-12 09:21] LABS: ANION GAP 7 mmol/L (8-16); CARBON DIOXIDE 26 mmol/L (22-29); CHLORIDE 104 mmol/L (98-107); CREATININE 0.76 mg/dL (0.60-1.30); GLOMERULAR FILTR. RATE CALC > 60 mL/min (>60); GLUCOSE,RANDOM 114 mg/dL (70-110); POTASSIUM 3.7 mmol/L (3.5-5.1); SODIUM SERUM 137 mmol/L (136-145); UREA NITROGEN, BLOOD 8 mg/dL (7-18)
[2018-07-12 16:52] VITALS: BP 123/79
[2018-07-12] MEDS: QUEtiapine FUMARATE 200 MG TABLET PO SCH (20:39)
[2018-07-13 08:02] LABS: EOSINOPHILS % (AUTO) 0 % (1.0-6.0); HEMOGLOBIN 13.1 g/dL (12.0-16.0); LYMPHOCYTES # (AUTO) 2.1 K/uL (1.0-4.8); LYMPHOCYTES % (AUTO) 40.4 % (22.0-44.0); MEAN CORPUSCULAR HEMOGLOBIN 33.1 pg (26.0-34.0); MEAN CORPUSCULAR HGB CONC 35.4 G/dL (31.0-37.0); MEAN CORPUSCULAR VOLUME 94 fL (80-100); MONOCYTES # (AUTO) 0.7 K/uL (0.1-1.0); MONOCYTES % (AUTO) 13.7 % (2.0-9.0); NEUTROPHILS # (AUTO) 2.4 K/uL (1.8-7.7); NEUTROPHILS % (AUTO) 45.9 % (40.0-70.0); PLATELET COUNT (AUTO) 224 K/uL (150-450); RED BLOOD CELL COUNT(AUTO) 3.96 MIL/uL (4.00-5.20); RED CELL DISTRIBUTION WIDTH 13.4 % (11.5-14.5)
[2018-07-13 09:00] VITALS: BP 126/76
[2018-07-13] MEDS: NICOTINE 21 MG/24 HOUR PATCH TD SCH (09:00)
[2018-07-13] MEDS: PROPRANOLOL HCL 10 MG TABLET PO SCH ×2 (09:00→16:52)
[2018-07-13] MEDS: DOCUSATE SODIUM 250 MG CAPSULE PO SCH ×2 (09:12→16:52)
[2018-07-13] MEDS: SODIUM CHLORIDE 1 GM TABLET PO SCH ×3 (09:12→16:52)
[2018-07-13] MEDS: OXcarbazepine 300 MG TABLET PO SCH ×2 (09:13→16:51)
[2018-07-13] MEDS: CITALOPRAM HYDROBROMIDE 10 MG TABLET PO SCH (09:13)
[2018-07-13] MEDS: BENZTROPINE MESYLATE 2 MG TABLET PO SCH ×2 (09:13→16:52)
[2018-07-13] MEDS: CloZAPine 100 MG TABLET PO SCH ×2 (09:13→20:45)
[2018-07-13] MEDS: QUEtiapine FUMARATE 100 MG TABLET PO SCH ×3 (09:13→16:52)
[2018-07-13 16:13] VITALS: BP 144/86
[2018-07-13] MEDS: QUEtiapine FUMARATE 200 MG TABLET PO SCH (20:45)
[2018-07-14] MEDS: DOCUSATE SODIUM 250 MG CAPSULE PO SCH ×2 (08:01→16:26)
[2018-07-14] MEDS: BENZTROPINE MESYLATE 2 MG TABLET PO SCH ×2 (08:01→16:26)
[2018-07-14] MEDS: CITALOPRAM HYDROBROMIDE 10 MG TABLET PO SCH (08:02)
[2018-07-14] MEDS: PROPRANOLOL HCL 10 MG TABLET PO SCH ×2 (08:02→16:26)
[2018-07-14] MEDS: SODIUM CHLORIDE 1 GM TABLET PO SCH ×3 (08:02→16:26)
[2018-07-14] MEDS: CloZAPine 100 MG TABLET PO SCH ×2 (08:02→20:57)
[2018-07-14] MEDS: OXcarbazepine 300 MG TABLET PO SCH ×2 (08:02→16:26)
[2018-07-14] MEDS: QUEtiapine FUMARATE 100 MG TABLET PO SCH ×3 (08:02→16:26)
[2018-07-14] MEDS: NICOTINE 21 MG/24 HOUR PATCH TD SCH (09:00)
[2018-07-14 20:39] VITALS: BP 106/74
[2018-07-14] MEDS: QUEtiapine FUMARATE 200 MG TABLET PO SCH (20:57)
[2018-07-14] MEDS: ZOLPIDEM TARTRATE 10 MG TABLET PO PRN (22:05)
[2018-07-15 08:00] VITALS: BP 116/76
[2018-07-15] MEDS: NICOTINE 21 MG/24 HOUR PATCH TD SCH (09:00)
[2018-07-15] MEDS: SODIUM CHLORIDE 1 GM TABLET PO SCH ×3 (10:05→16:09)
[2018-07-15] MEDS: CITALOPRAM HYDROBROMIDE 10 MG TABLET PO SCH (10:05)
[2018-07-15] MEDS: CloZAPine 100 MG TABLET PO SCH ×2 (10:05→20:19)
[2018-07-15] MEDS: BENZTROPINE MESYLATE 2 MG TABLET PO SCH ×2 (10:05→16:09)
[2018-07-15] MEDS: OXcarbazepine 300 MG TABLET PO SCH ×2 (10:05→16:09)
[2018-07-15] MEDS: PROPRANOLOL HCL 10 MG TABLET PO SCH ×2 (10:05→16:09)
[2018-07-15] MEDS: DOCUSATE SODIUM 250 MG CAPSULE PO SCH ×2 (10:07→16:09)
[2018-07-15] MEDS: QUEtiapine FUMARATE 100 MG TABLET PO SCH ×3 (10:07→16:09)
[2018-07-15 18:49] VITALS: BP 115/60
[2018-07-15] MEDS: QUEtiapine FUMARATE 200 MG TABLET PO SCH (20:19)
[2018-07-16] MEDS: NICOTINE 21 MG/24 HOUR PATCH TD SCH (09:00)
[2018-07-16] MEDS: QUEtiapine FUMARATE 100 MG TABLET PO SCH ×3 (09:02→16:06)
[2018-07-16] MEDS: CITALOPRAM HYDROBROMIDE 10 MG TABLET PO SCH (09:02)
[2018-07-16] MEDS: BENZTROPINE MESYLATE 2 MG TABLET PO SCH ×2 (09:02→16:06)
[2018-07-16] MEDS: SODIUM CHLORIDE 1 GM TABLET PO SCH ×3 (09:02→16:06)
[2018-07-16] MEDS: CloZAPine 100 MG TABLET PO SCH ×2 (09:03→20:26)
[2018-07-16] MEDS: DOCUSATE SODIUM 250 MG CAPSULE PO SCH ×2 (09:04→16:07)
[2018-07-16] MEDS: OXcarbazepine 300 MG TABLET PO SCH ×2 (09:04→16:07)
[2018-07-16] MEDS: PROPRANOLOL HCL 10 MG TABLET PO SCH ×2 (09:05→16:06)
[2018-07-16 16:00] VITALS: BP 142/75
[2018-07-16] MEDS: QUEtiapine FUMARATE 200 MG TABLET PO SCH (20:26)
[2018-07-17] MEDS: QUEtiapine FUMARATE 100 MG TABLET PO SCH ×3 (09:16→17:00)
[2018-07-17] MEDS: CloZAPine 100 MG TABLET PO SCH ×2 (09:17→20:55)
[2018-07-17] MEDS: PROPRANOLOL HCL 10 MG TABLET PO SCH ×2 (09:17→17:00)
[2018-07-17] MEDS: OXcarbazepine 300 MG TABLET PO SCH ×2 (09:17→17:02)
[2018-07-17] MEDS: DOCUSATE SODIUM 250 MG CAPSULE PO SCH ×2 (09:18→17:06)
[2018-07-17] MEDS: BENZTROPINE MESYLATE 2 MG TABLET PO SCH ×2 (09:18→17:00)
[2018-07-17] MEDS: SODIUM CHLORIDE 1 GM TABLET PO SCH ×3 (09:18→17:00)
[2018-07-17] MEDS: CITALOPRAM HYDROBROMIDE 10 MG TABLET PO SCH (09:18)
[2018-07-17] MEDS: NICOTINE 21 MG/24 HOUR PATCH TD SCH (09:19)
[2018-07-17 09:29] VITALS: BP 100/62
[2018-07-17 16:15] VITALS: BP 128/74
[2018-07-17] MEDS: QUEtiapine FUMARATE 200 MG TABLET PO SCH (20:54)
[2018-07-18 08:00] VITALS: BP 129/83
[2018-07-18] MEDS: OXcarbazepine 300 MG TABLET PO SCH ×2 (08:25→17:18)
[2018-07-18] MEDS: SODIUM CHLORIDE 1 GM TABLET PO SCH ×3 (08:26→17:17)
[2018-07-18] MEDS: CITALOPRAM HYDROBROMIDE 10 MG TABLET PO SCH (08:26)
[2018-07-18] MEDS: CloZAPine 100 MG TABLET PO SCH ×2 (08:26→21:38)
[2018-07-18] MEDS: QUEtiapine FUMARATE 100 MG TABLET PO SCH ×3 (08:26→17:18)
[2018-07-18] MEDS: PROPRANOLOL HCL 10 MG TABLET PO SCH ×2 (08:26→17:17)
[2018-07-18] MEDS: BENZTROPINE MESYLATE 2 MG TABLET PO SCH ×2 (08:26→17:17)
[2018-07-18] MEDS: DOCUSATE SODIUM 250 MG CAPSULE PO SCH ×2 (08:26→17:17)
[2018-07-18] MEDS: NICOTINE 21 MG/24 HOUR PATCH TD SCH (08:30)
[2018-07-18 16:40] VITALS: BP 137/91
[2018-07-18] MEDS: QUEtiapine FUMARATE 200 MG TABLET PO SCH (21:38)
[2018-07-19] MEDS: NICOTINE 21 MG/24 HOUR PATCH TD SCH (09:00)
[2018-07-19] MEDS: CITALOPRAM HYDROBROMIDE 10 MG TABLET PO SCH (09:29)
[2018-07-19] MEDS: SODIUM CHLORIDE 1 GM TABLET PO SCH ×3 (09:29→16:39)
[2018-07-19] MEDS: PROPRANOLOL HCL 10 MG TABLET PO SCH ×2 (09:31→16:38)
[2018-07-19] MEDS: CloZAPine 100 MG TABLET PO SCH ×2 (09:32→20:02)
[2018-07-19] MEDS: QUEtiapine FUMARATE 100 MG TABLET PO SCH ×3 (09:32→16:39)
[2018-07-19] MEDS: BENZTROPINE MESYLATE 2 MG TABLET PO SCH ×2 (09:32→16:39)
[2018-07-19] MEDS: DOCUSATE SODIUM 250 MG CAPSULE PO SCH ×2 (09:33→16:39)
[2018-07-19] MEDS: OXcarbazepine 300 MG TABLET PO SCH ×2 (09:33→16:38)
[2018-07-19 16:55] VITALS: BP 114/75
[2018-07-19] MEDS: QUEtiapine FUMARATE 200 MG TABLET PO SCH (20:02)
[2018-07-20 08:23] VITALS: BP 104/62
[2018-07-20] MEDS: OXcarbazepine 300 MG TABLET PO SCH ×2 (08:24→16:07)
[2018-07-20] MEDS: DOCUSATE SODIUM 250 MG CAPSULE PO SCH ×2 (08:25→16:07)
[2018-07-20] MEDS: QUEtiapine FUMARATE 100 MG TABLET PO SCH ×3 (08:25→16:07)
[2018-07-20] MEDS: CITALOPRAM HYDROBROMIDE 10 MG TABLET PO SCH (08:25)
[2018-07-20] MEDS: SODIUM CHLORIDE 1 GM TABLET PO SCH ×3 (08:25→16:07)
[2018-07-20] MEDS: PROPRANOLOL HCL 10 MG TABLET PO SCH ×2 (08:25→16:08)
[2018-07-20] MEDS: BENZTROPINE MESYLATE 2 MG TABLET PO SCH ×2 (08:25→16:07)
[2018-07-20] MEDS: NICOTINE 21 MG/24 HOUR PATCH TD SCH (08:25)
[2018-07-20] MEDS: CloZAPine 100 MG TABLET PO SCH ×2 (08:25→20:24)
[2018-07-20 10:34] LABS: EOSINOPHILS % (AUTO) 0 % (1.0-6.0); LYMPHOCYTES # (AUTO) 1.4 K/uL (1.0-4.8); MONOCYTES # (AUTO) 0.5 K/uL (0.1-1.0); NEUTROPHILS # (AUTO) 2.1 K/uL (1.8-7.7); NEUTROPHILS % (AUTO) 52.6 % (40.0-70.0)
[2018-07-20 10:43] LABS: ANION GAP 4 mmol/L (8-16); CALCIUM, TOTAL 8.6 mg/dL (8.8-10.5); CARBON DIOXIDE 29 mmol/L (22-29); CHLORIDE 104 mmol/L (98-107); CREATININE 0.76 mg/dL (0.60-1.30); GLOMERULAR FILTR. RATE CALC > 60 mL/min (>60); GLUCOSE,RANDOM 117 mg/dL (70-110); POTASSIUM 4.1 mmol/L (3.5-5.1); SODIUM SERUM 137 mmol/L (136-145); UREA NITROGEN, BLOOD 14 mg/dL (7-18)
[2018-07-20 11:28] LABS: BASOPHILS % (AUTO) 0.1 % (0.0-2.0); HEMATOCRIT 39.4 % (36-46); HEMOGLOBIN 13.7 g/dL (12.0-16.0); LYMPHOCYTES % (AUTO) 34.4 % (22.0-44.0); MEAN CORPUSCULAR HEMOGLOBIN 32.4 pg (26.0-34.0); MEAN CORPUSCULAR HGB CONC 34.7 G/dL (31.0-37.0); MEAN CORPUSCULAR VOLUME 93 fL (80-100); MONOCYTES % (AUTO) 12.9 % (2.0-9.0); PLATELET COUNT (AUTO) 238 K/uL (150-450); RED BLOOD CELL COUNT(AUTO) 4.22 MIL/uL (4.00-5.20); RED CELL DISTRIBUTION WIDTH 12.9 % (11.5-14.5)
[2018-07-20 16:16] VITALS: BP 127/91
[2018-07-20] MEDS: QUEtiapine FUMARATE 200 MG TABLET PO SCH (20:24)
[2018-07-21] MEDS: PROPRANOLOL HCL 10 MG TABLET PO SCH ×2 (08:32→17:41)
[2018-07-21] MEDS: BENZTROPINE MESYLATE 2 MG TABLET PO SCH ×2 (08:33→17:41)
[2018-07-21] MEDS: CloZAPine 100 MG TABLET PO SCH ×2 (08:33→20:28)
[2018-07-21] MEDS: DOCUSATE SODIUM 250 MG CAPSULE PO SCH ×2 (08:33→17:41)
[2018-07-21] MEDS: CITALOPRAM HYDROBROMIDE 10 MG TABLET PO SCH (08:33)
[2018-07-21] MEDS: QUEtiapine FUMARATE 100 MG TABLET PO SCH ×3 (08:33→17:41)
[2018-07-21] MEDS: SODIUM CHLORIDE 1 GM TABLET PO SCH ×3 (08:33→17:41)
[2018-07-21] MEDS: OXcarbazepine 300 MG TABLET PO SCH ×2 (08:34→17:41)
[2018-07-21] MEDS: NICOTINE 21 MG/24 HOUR PATCH TD SCH (08:34)
[2018-07-21] MEDS: LORazepam 2 MG TABLET PO PRN (13:14)
[2018-07-21 16:59] VITALS: BP 149/90
[2018-07-21] MEDS: QUEtiapine FUMARATE 200 MG TABLET PO SCH (20:28)
[2018-07-22] MEDS: NICOTINE 21 MG/24 HOUR PATCH TD SCH (09:00)
[2018-07-22] MEDS: OXcarbazepine 300 MG TABLET PO SCH ×2 (09:09→16:26)
[2018-07-22] MEDS: CloZAPine 100 MG TABLET PO SCH ×2 (09:09→20:19)
[2018-07-22] MEDS: BENZTROPINE MESYLATE 2 MG TABLET PO SCH ×2 (09:09→16:26)
[2018-07-22] MEDS: DOCUSATE SODIUM 250 MG CAPSULE PO SCH ×2 (09:09→16:26)
[2018-07-22] MEDS: PROPRANOLOL HCL 10 MG TABLET PO SCH ×2 (09:10→16:26)
[2018-07-22] MEDS: CITALOPRAM HYDROBROMIDE 10 MG TABLET PO SCH (09:10)
[2018-07-22] MEDS: QUEtiapine FUMARATE 100 MG TABLET PO SCH ×3 (09:10→16:26)
[2018-07-22] MEDS: SODIUM CHLORIDE 1 GM TABLET PO SCH ×3 (09:10→16:26)
[2018-07-22 09:41] VITALS: BP 115/74
[2018-07-22] MEDS: LORazepam 2 MG TABLET PO PRN (12:11)
[2018-07-22 16:18] VITALS: BP 141/75
[2018-07-22] MEDS: QUEtiapine FUMARATE 200 MG TABLET PO SCH (20:19)
[2018-07-23] MEDS: PROPRANOLOL HCL 10 MG TABLET PO SCH ×2 (08:29→17:34)
[2018-07-23] MEDS: QUEtiapine FUMARATE 100 MG TABLET PO SCH ×3 (08:29→17:34)
[2018-07-23] MEDS: DOCUSATE SODIUM 250 MG CAPSULE PO SCH ×2 (08:29→17:34)
[2018-07-23] MEDS: BENZTROPINE MESYLATE 2 MG TABLET PO SCH ×2 (08:29→17:34)
[2018-07-23] MEDS: CloZAPine 100 MG TABLET PO SCH ×2 (08:30→20:32)
[2018-07-23] MEDS: OXcarbazepine 300 MG TABLET PO SCH ×2 (08:30→17:34)
[2018-07-23 08:33] VITALS: BP 110/68
[2018-07-23] MEDS: NICOTINE 21 MG/24 HOUR PATCH TD SCH (09:00)
[2018-07-23] MEDS: CITALOPRAM HYDROBROMIDE 10 MG TABLET PO SCH (09:57)
[2018-07-23] MEDS: SODIUM CHLORIDE 1 GM TABLET PO SCH ×3 (09:57→17:34)
[2018-07-23] MEDS: LORazepam 2 MG TABLET PO PRN (12:27)
[2018-07-23] MEDS: OLANZapine 5 MG TABLET PO PRN (12:27)
[2018-07-23 16:42] VITALS: BP 119/79
[2018-07-23 16:43] VITALS: BP 119/79
[2018-07-23] MEDS: QUEtiapine FUMARATE 200 MG TABLET PO SCH (20:32)
[2018-07-24 08:00] VITALS: BP 104/58
[2018-07-24] MEDS: CITALOPRAM HYDROBROMIDE 10 MG TABLET PO SCH (08:09)
[2018-07-24] MEDS: BENZTROPINE MESYLATE 2 MG TABLET PO SCH ×2 (08:10→16:24)
[2018-07-24] MEDS: DOCUSATE SODIUM 250 MG CAPSULE PO SCH ×2 (08:10→16:24)
[2018-07-24] MEDS: OXcarbazepine 300 MG TABLET PO SCH ×2 (08:10→16:24)
[2018-07-24] MEDS: SODIUM CHLORIDE 1 GM TABLET PO SCH ×3 (08:10→16:24)
[2018-07-24] MEDS: CloZAPine 100 MG TABLET PO SCH ×2 (08:10→20:43)
[2018-07-24] MEDS: QUEtiapine FUMARATE 100 MG TABLET PO SCH ×3 (08:11→16:24)
[2018-07-24] MEDS: NICOTINE 21 MG/24 HOUR PATCH TD SCH (09:00)
[2018-07-24 09:05] VITALS: BP 133/89
[2018-07-24] MEDS: PROPRANOLOL HCL 10 MG TABLET PO SCH ×2 (09:22→16:24)
[2018-07-24 17:09] VITALS: BP 116/71
[2018-07-24] MEDS: QUEtiapine FUMARATE 200 MG TABLET PO SCH (20:43)
[2018-07-25 07:34] LABS: ANION GAP 6 mmol/L (8-16); CALCIUM, TOTAL 8.9 mg/dL (8.8-10.5); CARBON DIOXIDE 29 mmol/L (22-29); CHLORIDE 99 mmol/L (98-107); GLOMERULAR FILTR. RATE CALC > 60 mL/min (>60); GLUCOSE,RANDOM 80 mg/dL (70-110); POTASSIUM 4.2 mmol/L (3.5-5.1); SODIUM SERUM 134 mmol/L (136-145); UREA NITROGEN, BLOOD 12 mg/dL (7-18)
[2018-07-25 08:00] VITALS: BP 118/80
[2018-07-25] MEDS: SODIUM CHLORIDE 1 GM TABLET PO SCH ×3 (08:31→16:06)
[2018-07-25] MEDS: OXcarbazepine 300 MG TABLET PO SCH ×2 (08:31→16:06)
[2018-07-25] MEDS: QUEtiapine FUMARATE 100 MG TABLET PO SCH ×3 (08:31→16:06)
[2018-07-25] MEDS: CloZAPine 100 MG TABLET PO SCH ×2 (08:31→20:44)
[2018-07-25] MEDS: PROPRANOLOL HCL 10 MG TABLET PO SCH ×2 (08:31→16:07)
[2018-07-25] MEDS: DOCUSATE SODIUM 250 MG CAPSULE PO SCH ×2 (08:31→16:06)
[2018-07-25] MEDS: BENZTROPINE MESYLATE 2 MG TABLET PO SCH ×2 (08:31→16:06)
[2018-07-25] MEDS: CITALOPRAM HYDROBROMIDE 10 MG TABLET PO SCH (08:31)
[2018-07-25] MEDS: NICOTINE 21 MG/24 HOUR PATCH TD SCH (08:32)
[2018-07-25] MEDS: OLANZapine 5 MG TABLET PO PRN (10:05)
[2018-07-25] MEDS: LORazepam 2 MG TABLET PO PRN (10:05)
[2018-07-25 16:42] VITALS: BP 128/86
[2018-07-25] MEDS: QUEtiapine FUMARATE 200 MG TABLET PO SCH (20:44)
[2018-07-26 08:00] VITALS: BP 111/70
[2018-07-26] MEDS: BENZTROPINE MESYLATE 2 MG TABLET PO SCH ×2 (08:41→16:35)
[2018-07-26] MEDS: OXcarbazepine 300 MG TABLET PO SCH ×2 (08:41→16:36)
[2018-07-26] MEDS: CloZAPine 100 MG TABLET PO SCH ×2 (08:41→20:24)
[2018-07-26] MEDS: QUEtiapine FUMARATE 100 MG TABLET PO SCH ×3 (08:41→16:36)
[2018-07-26] MEDS: PROPRANOLOL HCL 10 MG TABLET PO SCH ×2 (08:42→16:36)
[2018-07-26] MEDS: SODIUM CHLORIDE 1 GM TABLET PO SCH ×3 (08:42→16:36)
[2018-07-26] MEDS: NICOTINE 21 MG/24 HOUR PATCH TD SCH (08:42)
[2018-07-26] MEDS: DOCUSATE SODIUM 250 MG CAPSULE PO SCH ×2 (08:43→16:35)
[2018-07-26] MEDS: CITALOPRAM HYDROBROMIDE 10 MG TABLET PO SCH (08:43)
[2018-07-26] MEDS: LORazepam 2 MG TABLET PO PRN (16:35)
[2018-07-26 19:11] VITALS: BP 113/88
[2018-07-26] MEDS: QUEtiapine FUMARATE 200 MG TABLET PO SCH (20:24)
[2018-07-27 06:35] LABS: EOSINOPHILS % (AUTO) 0 % (1.0-6.0); HEMATOCRIT 37.7 % (36-46); HEMOGLOBIN 13.1 g/dL (12.0-16.0); LYMPHOCYTES # (AUTO) 2.1 K/uL (1.0-4.8); LYMPHOCYTES % (AUTO) 41.3 % (22.0-44.0); MEAN CORPUSCULAR HEMOGLOBIN 32.2 pg (26.0-34.0); MEAN CORPUSCULAR HGB CONC 34.7 G/dL (31.0-37.0); MEAN CORPUSCULAR VOLUME 93 fL (80-100); MONOCYTES # (AUTO) 0.7 K/uL (0.1-1.0); NEUTROPHILS # (AUTO) 2.3 K/uL (1.8-7.7); NEUTROPHILS % (AUTO) 45.7 % (40.0-70.0); PLATELET COUNT (AUTO) 217 K/uL (150-450); RED BLOOD CELL COUNT(AUTO) 4.05 MIL/uL (4.00-5.20); RED CELL DISTRIBUTION WIDTH 12.7 % (11.5-14.5)
[2018-07-27] MEDS: SODIUM CHLORIDE 1 GM TABLET PO SCH ×3 (08:59→17:42)
[2018-07-27] MEDS: BENZTROPINE MESYLATE 2 MG TABLET PO SCH ×2 (08:59→17:42)
[2018-07-27] MEDS: PROPRANOLOL HCL 10 MG TABLET PO SCH ×2 (09:00→17:42)
[2018-07-27] MEDS: QUEtiapine FUMARATE 100 MG TABLET PO SCH ×3 (09:00→17:42)
[2018-07-27] MEDS: OXcarbazepine 300 MG TABLET PO SCH ×2 (09:00→17:42)
[2018-07-27] MEDS: CloZAPine 100 MG TABLET PO SCH ×2 (09:00→22:00)
[2018-07-27] MEDS: NICOTINE 21 MG/24 HOUR PATCH TD SCH (09:01)
[2018-07-27] MEDS: CITALOPRAM HYDROBROMIDE 10 MG TABLET PO SCH (09:01)
[2018-07-27] MEDS: DOCUSATE SODIUM 250 MG CAPSULE PO SCH ×2 (09:01→17:42)
[2018-07-27 09:07] VITALS: BP 118/62
[2018-07-27 16:45] VITALS: BP 118/74
[2018-07-27] MEDS: QUEtiapine FUMARATE 200 MG TABLET PO SCH (22:00)
[2018-07-28] MEDS: OXcarbazepine 300 MG TABLET PO SCH ×2 (08:32→16:49)
[2018-07-28] MEDS: PROPRANOLOL HCL 10 MG TABLET PO SCH ×2 (08:32→16:49)
[2018-07-28] MEDS: QUEtiapine FUMARATE 100 MG TABLET PO SCH ×3 (08:32→16:48)
[2018-07-28] MEDS: OLANZapine 5 MG TABLET PO PRN (08:32)
[2018-07-28] MEDS: DOCUSATE SODIUM 250 MG CAPSULE PO SCH ×2 (08:33→16:50)
[2018-07-28] MEDS: BENZTROPINE MESYLATE 2 MG TABLET PO SCH ×2 (08:33→16:49)
[2018-07-28] MEDS: CloZAPine 100 MG TABLET PO SCH ×2 (08:33→20:14)
[2018-07-28] MEDS: CITALOPRAM HYDROBROMIDE 10 MG TABLET PO SCH (08:33)
[2018-07-28] MEDS: SODIUM CHLORIDE 1 GM TABLET PO SCH ×3 (08:33→16:49)
[2018-07-28] MEDS: NICOTINE 21 MG/24 HOUR PATCH TD SCH (08:33)
[2018-07-28 08:55] VITALS: BP 127/86
[2018-07-28 17:01] VITALS: BP 116/78
[2018-07-28] MEDS: QUEtiapine FUMARATE 200 MG TABLET PO SCH (20:14)
[2018-07-29] MEDS: QUEtiapine FUMARATE 100 MG TABLET PO SCH ×3 (08:13→16:54)
[2018-07-29] MEDS: OXcarbazepine 300 MG TABLET PO SCH ×2 (08:13→16:54)
[2018-07-29] MEDS: CloZAPine 100 MG TABLET PO SCH ×2 (08:14→20:34)
[2018-07-29] MEDS: PROPRANOLOL HCL 10 MG TABLET PO SCH ×2 (08:14→16:54)
[2018-07-29] MEDS: DOCUSATE SODIUM 250 MG CAPSULE PO SCH ×2 (08:14→16:54)
[2018-07-29] MEDS: SODIUM CHLORIDE 1 GM TABLET PO SCH ×3 (08:14→16:54)
[2018-07-29] MEDS: BENZTROPINE MESYLATE 2 MG TABLET PO SCH ×2 (08:14→16:54)
[2018-07-29] MEDS: OLANZapine 5 MG TABLET PO PRN (08:14)
[2018-07-29] MEDS: CITALOPRAM HYDROBROMIDE 10 MG TABLET PO SCH (08:15)
[2018-07-29] MEDS: NICOTINE 21 MG/24 HOUR PATCH TD SCH (08:15)
[2018-07-29 09:29] VITALS: BP 101/66
[2018-07-29 17:45] VITALS: BP 122/87
[2018-07-29] MEDS: QUEtiapine FUMARATE 200 MG TABLET PO SCH (20:34)
[2018-07-30] MEDS: SODIUM CHLORIDE 1 GM TABLET PO SCH ×3 (08:38→16:28)
[2018-07-30] MEDS: CITALOPRAM HYDROBROMIDE 10 MG TABLET PO SCH (08:38)
[2018-07-30] MEDS: QUEtiapine FUMARATE 100 MG TABLET PO SCH ×3 (08:40→16:28)
[2018-07-30] MEDS: NICOTINE 21 MG/24 HOUR PATCH TD SCH (08:41)
[2018-07-30] MEDS: OXcarbazepine 300 MG TABLET PO SCH ×2 (08:41→16:28)
[2018-07-30] MEDS: BENZTROPINE MESYLATE 2 MG TABLET PO SCH ×2 (08:42→16:28)
[2018-07-30] MEDS: CloZAPine 100 MG TABLET PO SCH ×2 (08:42→20:39)
[2018-07-30] MEDS: DOCUSATE SODIUM 250 MG CAPSULE PO SCH ×2 (08:42→16:28)
[2018-07-30] MEDS: PROPRANOLOL HCL 10 MG TABLET PO SCH ×2 (08:43→16:28)
[2018-07-30 09:08] VITALS: BP 124/78
[2018-07-30] MEDS: QUEtiapine FUMARATE 200 MG TABLET PO SCH (20:39)
[2018-07-30 22:41] VITALS: BP 111/76
[2018-07-31] MEDS: DOCUSATE SODIUM 250 MG CAPSULE PO SCH ×2 (08:39→17:42)
[2018-07-31] MEDS: CloZAPine 100 MG TABLET PO SCH ×2 (08:39→21:30)
[2018-07-31] MEDS: OXcarbazepine 300 MG TABLET PO SCH ×2 (08:39→17:43)
[2018-07-31] MEDS: BENZTROPINE MESYLATE 2 MG TABLET PO SCH ×2 (08:39→17:42)
[2018-07-31] MEDS: QUEtiapine FUMARATE 100 MG TABLET PO SCH ×3 (08:39→17:42)
[2018-07-31] MEDS: NICOTINE 21 MG/24 HOUR PATCH TD SCH (08:40)
[2018-07-31] MEDS: PROPRANOLOL HCL 10 MG TABLET PO SCH ×2 (08:40→17:42)
[2018-07-31] MEDS: SODIUM CHLORIDE 1 GM TABLET PO SCH ×3 (08:40→17:42)
[2018-07-31] MEDS: CITALOPRAM HYDROBROMIDE 10 MG TABLET PO SCH (08:41)
[2018-07-31 09:30] VITALS: BP 132/90
[2018-07-31 17:19] VITALS: BP 122/75
[2018-07-31] MEDS: QUEtiapine FUMARATE 200 MG TABLET PO SCH (21:30)
[2018-08-01] MEDS: BENZTROPINE MESYLATE 2 MG TABLET PO SCH ×2 (08:36→17:06)
[2018-08-01] MEDS: CloZAPine 100 MG TABLET PO SCH ×2 (08:36→20:38)
[2018-08-01] MEDS: OXcarbazepine 300 MG TABLET PO SCH ×2 (08:36→17:05)
[2018-08-01] MEDS: DOCUSATE SODIUM 250 MG CAPSULE PO SCH ×2 (08:36→17:05)
[2018-08-01] MEDS: SODIUM CHLORIDE 1 GM TABLET PO SCH ×3 (08:36→17:07)
[2018-08-01] MEDS: CITALOPRAM HYDROBROMIDE 10 MG TABLET PO SCH (08:36)
[2018-08-01] MEDS: PROPRANOLOL HCL 10 MG TABLET PO SCH ×2 (08:37→17:05)
[2018-08-01] MEDS: QUEtiapine FUMARATE 100 MG TABLET PO SCH ×3 (08:37→17:05)
[2018-08-01] MEDS: NICOTINE 21 MG/24 HOUR PATCH TD SCH (08:37)
[2018-08-01 09:00] VITALS: BP 108/58
[2018-08-01 16:00] VITALS: BP 105/68
[2018-08-01] MEDS: QUEtiapine FUMARATE 200 MG TABLET PO SCH (20:38)
[2018-08-02] MEDS: CITALOPRAM HYDROBROMIDE 10 MG TABLET PO SCH (08:06)
[2018-08-02] MEDS: DOCUSATE SODIUM 250 MG CAPSULE PO SCH ×2 (08:07→16:43)
[2018-08-02] MEDS: CloZAPine 100 MG TABLET PO SCH ×2 (08:07→20:37)
[2018-08-02] MEDS: PROPRANOLOL HCL 10 MG TABLET PO SCH ×2 (08:07→16:43)
[2018-08-02] MEDS: SODIUM CHLORIDE 1 GM TABLET PO SCH ×3 (08:07→16:43)
[2018-08-02] MEDS: BENZTROPINE MESYLATE 2 MG TABLET PO SCH ×2 (08:07→16:43)
[2018-08-02] MEDS: QUEtiapine FUMARATE 100 MG TABLET PO SCH ×3 (08:07→16:43)
[2018-08-02] MEDS: OXcarbazepine 300 MG TABLET PO SCH ×2 (08:07→16:43)
[2018-08-02] MEDS: NICOTINE 21 MG/24 HOUR PATCH TD SCH (08:13)
[2018-08-02 09:17] VITALS: BP 101/52
[2018-08-02 16:00] VITALS: BP 127/79
[2018-08-02] MEDS: QUEtiapine FUMARATE 200 MG TABLET PO SCH (20:37)
[2018-08-03] MEDS: NICOTINE 21 MG/24 HOUR PATCH TD SCH (09:00)
[2018-08-03] MEDS: BENZTROPINE MESYLATE 2 MG TABLET PO SCH ×2 (09:32→16:28)
[2018-08-03] MEDS: DOCUSATE SODIUM 250 MG CAPSULE PO SCH ×2 (09:32→16:28)
[2018-08-03] MEDS: SODIUM CHLORIDE 1 GM TABLET PO SCH ×3 (09:32→16:28)
[2018-08-03] MEDS: OXcarbazepine 300 MG TABLET PO SCH ×2 (09:32→16:28)
[2018-08-03] MEDS: PROPRANOLOL HCL 10 MG TABLET PO SCH ×2 (09:33→16:28)
[2018-08-03] MEDS: CloZAPine 100 MG TABLET PO SCH ×2 (09:33→20:32)
[2018-08-03] MEDS: CITALOPRAM HYDROBROMIDE 10 MG TABLET PO SCH (09:33)
[2018-08-03] MEDS: QUEtiapine FUMARATE 100 MG TABLET PO SCH ×3 (09:34→16:29)
[2018-08-03 16:18] VITALS: BP 120/80
[2018-08-03 18:27] LABS: BASOPHILS % (AUTO) 0.1 % (0.0-2.0); EOSINOPHILS % (AUTO) 0 % (1.0-6.0); HEMATOCRIT 38.4 % (36-46); HEMOGLOBIN 13.3 g/dL (12.0-16.0); LYMPHOCYTES # (AUTO) 1.8 K/uL (1.0-4.8); LYMPHOCYTES % (AUTO) 26.9 % (22.0-44.0); MEAN CORPUSCULAR HEMOGLOBIN 32.3 pg (26.0-34.0); MEAN CORPUSCULAR HGB CONC 34.5 G/dL (31.0-37.0); MEAN CORPUSCULAR VOLUME 94 fL (80-100); MONOCYTES # (AUTO) 0.4 K/uL (0.1-1.0); MONOCYTES % (AUTO) 5.9 % (2.0-9.0); NEUTROPHILS # (AUTO) 4.6 K/uL (1.8-7.7); NEUTROPHILS % (AUTO) 67.1 % (40.0-70.0); PLATELET COUNT (AUTO) 242 K/uL (150-450); RED BLOOD CELL COUNT(AUTO) 4.11 MIL/uL (4.00-5.20); RED CELL DISTRIBUTION WIDTH 12.6 % (11.5-14.5)
[2018-08-03 18:41] LABS: ANION GAP 9 mmol/L (8-16); CALCIUM, TOTAL 8.6 mg/dL (8.8-10.5); CARBON DIOXIDE 25 mmol/L (22-29); CHLORIDE 98 mmol/L (98-107); CREATININE 0.57 mg/dL (0.60-1.30); GLOMERULAR FILTR. RATE CALC > 60 mL/min (>60); GLUCOSE,RANDOM 152 mg/dL (70-110); POTASSIUM 3.6 mmol/L (3.5-5.1); SODIUM SERUM 132 mmol/L (136-145); UREA NITROGEN, BLOOD 8 mg/dL (7-18)
[2018-08-03] MEDS: QUEtiapine FUMARATE 200 MG TABLET PO SCH (20:32)
[2018-08-04 06:23] LABS: BASOPHILS % (AUTO) 0.3 % (0.0-2.0); EOSINOPHILS % (AUTO) 0 % (1.0-6.0); HEMATOCRIT 37.8 % (36-46); HEMOGLOBIN 13.2 g/dL (12.0-16.0); LYMPHOCYTES # (AUTO) 1.9 K/uL (1.0-4.8); LYMPHOCYTES % (AUTO) 37.8 % (22.0-44.0); MEAN CORPUSCULAR HEMOGLOBIN 32.3 pg (26.0-34.0); MEAN CORPUSCULAR VOLUME 92 fL (80-100); MONOCYTES # (AUTO) 0.6 K/uL (0.1-1.0); MONOCYTES % (AUTO) 11.5 % (2.0-9.0); NEUTROPHILS # (AUTO) 2.6 K/uL (1.8-7.7); NEUTROPHILS % (AUTO) 50.4 % (40.0-70.0); PLATELET COUNT (AUTO) 241 K/uL (150-450); RED CELL DISTRIBUTION WIDTH 12.8 % (11.5-14.5)
[2018-08-04 06:42] LABS: ANION GAP 7 mmol/L (8-16); CALCIUM, TOTAL 8.6 mg/dL (8.8-10.5); CARBON DIOXIDE 27 mmol/L (22-29); CHLORIDE 100 mmol/L (98-107); CREATININE 0.55 mg/dL (0.60-1.30); GLOMERULAR FILTR. RATE CALC > 60 mL/min (>60); GLUCOSE,RANDOM 83 mg/dL (70-110); POTASSIUM 4.1 mmol/L (3.5-5.1); SODIUM SERUM 134 mmol/L (136-145); UREA NITROGEN, BLOOD 7 mg/dL (7-18)
[2018-08-04 09:00] VITALS: BP 110/71
[2018-08-04] MEDS: NICOTINE 21 MG/24 HOUR PATCH TD SCH (09:00)
[2018-08-04] MEDS: CloZAPine 100 MG TABLET PO SCH ×2 (09:01→20:34)
[2018-08-04] MEDS: CITALOPRAM HYDROBROMIDE 10 MG TABLET PO SCH (09:01)
[2018-08-04] MEDS: SODIUM CHLORIDE 1 GM TABLET PO SCH ×3 (09:01→16:51)
[2018-08-04] MEDS: QUEtiapine FUMARATE 100 MG TABLET PO SCH ×3 (09:01→16:50)
[2018-08-04] MEDS: BENZTROPINE MESYLATE 2 MG TABLET PO SCH ×2 (09:01→16:50)
[2018-08-04] MEDS: OXcarbazepine 300 MG TABLET PO SCH ×2 (09:01→16:50)
[2018-08-04] MEDS: DOCUSATE SODIUM 250 MG CAPSULE PO SCH ×2 (09:02→16:50)
[2018-08-04] MEDS: PROPRANOLOL HCL 10 MG TABLET PO SCH ×2 (09:12→16:50)
[2018-08-04 16:00] VITALS: BP 134/76
[2018-08-04] MEDS: QUEtiapine FUMARATE 200 MG TABLET PO SCH (20:33)
[2018-08-05 08:05] VITALS: BP 121/69
[2018-08-05] MEDS: BENZTROPINE MESYLATE 2 MG TABLET PO SCH ×2 (08:05→17:09)
[2018-08-05] MEDS: OXcarbazepine 300 MG TABLET PO SCH ×2 (08:05→17:09)
[2018-08-05] MEDS: DOCUSATE SODIUM 250 MG CAPSULE PO SCH ×2 (08:05→17:09)
[2018-08-05] MEDS: PROPRANOLOL HCL 10 MG TABLET PO SCH ×2 (08:05→17:09)
[2018-08-05] MEDS: SODIUM CHLORIDE 1 GM TABLET PO SCH ×3 (08:06→17:09)
[2018-08-05] MEDS: QUEtiapine FUMARATE 100 MG TABLET PO SCH ×3 (08:06→17:09)
[2018-08-05] MEDS: CITALOPRAM HYDROBROMIDE 10 MG TABLET PO SCH (08:06)
[2018-08-05] MEDS: CloZAPine 100 MG TABLET PO SCH ×2 (08:06→20:28)
[2018-08-05] MEDS: NICOTINE 21 MG/24 HOUR PATCH TD SCH (08:11)
[2018-08-05 16:40] VITALS: BP 126/91
[2018-08-05] MEDS: QUEtiapine FUMARATE 200 MG TABLET PO SCH (20:28)
[2018-08-06] MEDS: CITALOPRAM HYDROBROMIDE 10 MG TABLET PO SCH (08:31)
[2018-08-06] MEDS: CloZAPine 100 MG TABLET PO SCH ×2 (08:31→20:27)
[2018-08-06] MEDS: DOCUSATE SODIUM 250 MG CAPSULE PO SCH ×2 (08:31→17:31)
[2018-08-06] MEDS: BENZTROPINE MESYLATE 2 MG TABLET PO SCH ×2 (08:31→17:31)
[2018-08-06] MEDS: SODIUM CHLORIDE 1 GM TABLET PO SCH ×3 (08:31→17:31)
[2018-08-06] MEDS: PROPRANOLOL HCL 10 MG TABLET PO SCH ×2 (08:34→17:00)
[2018-08-06] MEDS: OXcarbazepine 300 MG TABLET PO SCH ×2 (08:34→17:31)
[2018-08-06] MEDS: QUEtiapine FUMARATE 100 MG TABLET PO SCH ×3 (08:34→17:31)
[2018-08-06] MEDS: NICOTINE 21 MG/24 HOUR PATCH TD SCH (08:38)
[2018-08-06 10:31] VITALS: BP 119/71
[2018-08-06 16:52] VITALS: BP 104/78
[2018-08-06] MEDS: QUEtiapine FUMARATE 200 MG TABLET PO SCH (20:27)
[2018-08-07 08:55] VITALS: BP 106/77
[2018-08-07] MEDS: NICOTINE 21 MG/24 HOUR PATCH TD SCH (09:00)
[2018-08-07] MEDS: SODIUM CHLORIDE 1 GM TABLET PO SCH ×3 (09:36→16:58)
[2018-08-07] MEDS: CITALOPRAM HYDROBROMIDE 10 MG TABLET PO SCH (09:37)
[2018-08-07] MEDS: OXcarbazepine 300 MG TABLET PO SCH ×2 (09:39→16:58)
[2018-08-07] MEDS: PROPRANOLOL HCL 10 MG TABLET PO SCH ×2 (09:39→16:58)
[2018-08-07] MEDS: BENZTROPINE MESYLATE 2 MG TABLET PO SCH ×2 (09:40→16:58)
[2018-08-07] MEDS: CloZAPine 100 MG TABLET PO SCH ×2 (09:40→21:54)
[2018-08-07] MEDS: QUEtiapine FUMARATE 100 MG TABLET PO SCH ×3 (09:40→16:58)
[2018-08-07] MEDS: DOCUSATE SODIUM 250 MG CAPSULE PO SCH ×2 (09:41→16:58)
[2018-08-07 16:06] VITALS: BP 120/79
[2018-08-07] MEDS: QUEtiapine FUMARATE 200 MG TABLET PO SCH (21:54)
[2018-08-08 06:39] LABS: ANION GAP 9 mmol/L (8-16); CARBON DIOXIDE 26 mmol/L (22-29); CHLORIDE 99 mmol/L (98-107); CREATININE 0.78 mg/dL (0.60-1.30); GLOMERULAR FILTR. RATE CALC > 60 mL/min (>60); GLUCOSE,RANDOM 81 mg/dL (70-110); POTASSIUM 3.9 mmol/L (3.5-5.1); SODIUM SERUM 134 mmol/L (136-145); UREA NITROGEN, BLOOD 10 mg/dL (7-18)
[2018-08-08 08:28] VITALS: BP 103/54
[2018-08-08] MEDS: NICOTINE 21 MG/24 HOUR PATCH TD SCH (09:00)
[2018-08-08] MEDS: OXcarbazepine 300 MG TABLET PO SCH ×2 (09:55→16:28)
[2018-08-08] MEDS: DOCUSATE SODIUM 250 MG CAPSULE PO SCH ×2 (09:55→16:28)
[2018-08-08] MEDS: PROPRANOLOL HCL 10 MG TABLET PO SCH ×2 (09:55→16:28)
[2018-08-08] MEDS: SODIUM CHLORIDE 1 GM TABLET PO SCH ×3 (09:55→16:28)
[2018-08-08] MEDS: BENZTROPINE MESYLATE 2 MG TABLET PO SCH ×2 (09:55→16:28)
[2018-08-08] MEDS: CITALOPRAM HYDROBROMIDE 10 MG TABLET PO SCH (09:55)
[2018-08-08] MEDS: CloZAPine 100 MG TABLET PO SCH ×2 (09:55→20:36)
[2018-08-08] MEDS: QUEtiapine FUMARATE 100 MG TABLET PO SCH ×3 (09:55→16:28)
[2018-08-08] MEDS: OLANZapine 5 MG TABLET PO PRN (09:57)
[2018-08-08 16:14] VITALS: BP 107/69
[2018-08-08] MEDS: QUEtiapine FUMARATE 200 MG TABLET PO SCH (20:36)
[2018-08-08] MEDS: ZOLPIDEM TARTRATE 10 MG TABLET PO PRN (22:29)
[2018-08-09] MEDS: CloZAPine 100 MG TABLET PO SCH ×2 (09:13→20:24)
[2018-08-09] MEDS: QUEtiapine FUMARATE 100 MG TABLET PO SCH ×3 (09:13→16:20)
[2018-08-09] MEDS: OXcarbazepine 300 MG TABLET PO SCH ×2 (09:13→16:20)
[2018-08-09] MEDS: BENZTROPINE MESYLATE 2 MG TABLET PO SCH ×2 (09:13→16:20)
[2018-08-09] MEDS: PROPRANOLOL HCL 10 MG TABLET PO SCH ×2 (09:13→16:20)
[2018-08-09] MEDS: DOCUSATE SODIUM 250 MG CAPSULE PO SCH ×2 (09:14→16:20)
[2018-08-09] MEDS: NICOTINE 21 MG/24 HOUR PATCH TD SCH (09:14)
[2018-08-09] MEDS: SODIUM CHLORIDE 1 GM TABLET PO SCH ×3 (09:14→16:20)
[2018-08-09] MEDS: CITALOPRAM HYDROBROMIDE 10 MG TABLET PO SCH (09:15)
[2018-08-09 10:07] VITALS: BP 120/71
[2018-08-09 16:00] VITALS: BP 125/78
[2018-08-09] MEDS: QUEtiapine FUMARATE 200 MG TABLET PO SCH (20:24)
[2018-08-10 07:57] LABS: BASOPHILS % (AUTO) 0.1 % (0.0-2.0); EOSINOPHILS % (AUTO) 0 % (1.0-6.0); HEMATOCRIT 38.3 % (36-46); HEMOGLOBIN 13.6 g/dL (12.0-16.0); LYMPHOCYTES # (AUTO) 1.7 K/uL (1.0-4.8); LYMPHOCYTES % (AUTO) 38.5 % (22.0-44.0); MEAN CORPUSCULAR HGB CONC 35.4 G/dL (31.0-37.0); MEAN CORPUSCULAR VOLUME 93 fL (80-100); MONOCYTES # (AUTO) 0.6 K/uL (0.1-1.0); MONOCYTES % (AUTO) 13.3 % (2.0-9.0); NEUTROPHILS # (AUTO) 2.1 K/uL (1.8-7.7); NEUTROPHILS % (AUTO) 48.1 % (40.0-70.0); PLATELET COUNT (AUTO) 208 K/uL (150-450); RED BLOOD CELL COUNT(AUTO) 4.11 MIL/uL (4.00-5.20); RED CELL DISTRIBUTION WIDTH 12.8 % (11.5-14.5)
[2018-08-10 08:00] VITALS: BP 109/79
[2018-08-10] MEDS: QUEtiapine FUMARATE 100 MG TABLET PO SCH ×3 (08:39→16:19)
[2018-08-10] MEDS: NICOTINE 21 MG/24 HOUR PATCH TD SCH (08:39)
[2018-08-10] MEDS: OXcarbazepine 300 MG TABLET PO SCH ×2 (08:39→16:19)
[2018-08-10] MEDS: BENZTROPINE MESYLATE 2 MG TABLET PO SCH ×2 (08:39→16:19)
[2018-08-10] MEDS: CloZAPine 100 MG TABLET PO SCH ×2 (08:40→20:16)
[2018-08-10] MEDS: SODIUM CHLORIDE 1 GM TABLET PO SCH ×3 (08:40→16:19)
[2018-08-10] MEDS: PROPRANOLOL HCL 10 MG TABLET PO SCH ×2 (08:40→16:19)
[2018-08-10] MEDS: DOCUSATE SODIUM 250 MG CAPSULE PO SCH ×2 (08:40→16:19)
[2018-08-10] MEDS: CITALOPRAM HYDROBROMIDE 10 MG TABLET PO SCH (08:41)
[2018-08-10 16:46] VITALS: BP 117/71
[2018-08-10] MEDS: QUEtiapine FUMARATE 200 MG TABLET PO SCH (20:16)
[2018-08-11 08:00] VITALS: BP 112/59
[2018-08-11 08:47] VITALS: BP 110/69
[2018-08-11] MEDS: NICOTINE 21 MG/24 HOUR PATCH TD SCH (09:39)
[2018-08-11] MEDS: DOCUSATE SODIUM 250 MG CAPSULE PO SCH ×2 (09:40→17:11)
[2018-08-11] MEDS: QUEtiapine FUMARATE 100 MG TABLET PO SCH ×3 (09:40→17:11)
[2018-08-11] MEDS: OXcarbazepine 300 MG TABLET PO SCH ×2 (09:40→17:11)
[2018-08-11] MEDS: CITALOPRAM HYDROBROMIDE 10 MG TABLET PO SCH (09:40)
[2018-08-11] MEDS: BENZTROPINE MESYLATE 2 MG TABLET PO SCH ×2 (09:40→17:11)
[2018-08-11] MEDS: SODIUM CHLORIDE 1 GM TABLET PO SCH ×3 (09:40→17:11)
[2018-08-11] MEDS: PROPRANOLOL HCL 10 MG TABLET PO SCH ×2 (09:40→17:11)
[2018-08-11] MEDS: CloZAPine 100 MG TABLET PO SCH ×2 (09:40→21:59)
[2018-08-11] MEDS: OLANZapine 5 MG TABLET PO PRN (14:08)
[2018-08-11] MEDS: LORazepam 2 MG TABLET PO PRN (14:08)
[2018-08-11 16:20] VITALS: BP 128/73
[2018-08-11] MEDS: QUEtiapine FUMARATE 200 MG TABLET PO SCH (21:59)
[2018-08-11] MEDS: ZOLPIDEM TARTRATE 10 MG TABLET PO PRN (22:00)
[2018-08-12 08:52] VITALS: BP 114/65
[2018-08-12] MEDS: QUEtiapine FUMARATE 100 MG TABLET PO SCH ×3 (10:11→17:49)
[2018-08-12] MEDS: CITALOPRAM HYDROBROMIDE 10 MG TABLET PO SCH (10:11)
[2018-08-12] MEDS: CloZAPine 100 MG TABLET PO SCH ×2 (10:11→20:41)
[2018-08-12] MEDS: PROPRANOLOL HCL 10 MG TABLET PO SCH ×2 (10:11→17:49)
[2018-08-12] MEDS: SODIUM CHLORIDE 1 GM TABLET PO SCH ×3 (10:11→17:50)
[2018-08-12] MEDS: OXcarbazepine 300 MG TABLET PO SCH ×2 (10:11→17:47)
[2018-08-12] MEDS: BENZTROPINE MESYLATE 2 MG TABLET PO SCH ×2 (10:11→17:50)
[2018-08-12] MEDS: DOCUSATE SODIUM 250 MG CAPSULE PO SCH ×2 (10:12→17:50)
[2018-08-12] MEDS: NICOTINE 21 MG/24 HOUR PATCH TD SCH (10:25)
[2018-08-12] MEDS: OLANZapine 5 MG TABLET PO PRN (14:03)
[2018-08-12] MEDS: LORazepam 2 MG TABLET PO PRN (14:03)
[2018-08-12 19:10] VITALS: BP 119/62
[2018-08-12] MEDS: QUEtiapine FUMARATE 200 MG TABLET PO SCH (20:41)
[2018-08-13] MEDS: NICOTINE 21 MG/24 HOUR PATCH TD SCH (09:00)
[2018-08-13 09:33] VITALS: BP 115/71
[2018-08-13] MEDS: SODIUM CHLORIDE 1 GM TABLET PO SCH ×3 (11:19→17:16)
[2018-08-13] MEDS: QUEtiapine FUMARATE 100 MG TABLET PO SCH ×3 (11:19→17:16)
[2018-08-13] MEDS: OXcarbazepine 300 MG TABLET PO SCH ×2 (11:19→17:16)
[2018-08-13] MEDS: PROPRANOLOL HCL 10 MG TABLET PO SCH ×2 (11:19→17:16)
[2018-08-13] MEDS: BENZTROPINE MESYLATE 2 MG TABLET PO SCH ×2 (11:19→17:16)
[2018-08-13] MEDS: CloZAPine 100 MG TABLET PO SCH ×2 (11:19→20:17)
[2018-08-13] MEDS: DOCUSATE SODIUM 250 MG CAPSULE PO SCH ×2 (11:19→17:16)
[2018-08-13] MEDS: CITALOPRAM HYDROBROMIDE 10 MG TABLET PO SCH (11:20)
[2018-08-13 19:01] VITALS: BP 113/76
[2018-08-13] MEDS: QUEtiapine FUMARATE 200 MG TABLET PO SCH (20:17)
[2018-08-14 08:00] VITALS: BP 101/56
[2018-08-14] MEDS: CloZAPine 100 MG TABLET PO SCH ×2 (08:43→20:45)
[2018-08-14] MEDS: SODIUM CHLORIDE 1 GM TABLET PO SCH ×3 (08:43→16:39)
[2018-08-14] MEDS: CITALOPRAM HYDROBROMIDE 10 MG TABLET PO SCH (08:43)
[2018-08-14] MEDS: DOCUSATE SODIUM 250 MG CAPSULE PO SCH ×2 (08:44→16:39)
[2018-08-14] MEDS: QUEtiapine FUMARATE 100 MG TABLET PO SCH ×3 (08:44→16:39)
[2018-08-14] MEDS: BENZTROPINE MESYLATE 2 MG TABLET PO SCH ×2 (08:44→16:39)
[2018-08-14] MEDS: OXcarbazepine 300 MG TABLET PO SCH ×2 (08:44→16:38)
[2018-08-14] MEDS: PROPRANOLOL HCL 10 MG TABLET PO SCH ×2 (09:00→16:39)
[2018-08-14] MEDS: NICOTINE 21 MG/24 HOUR PATCH TD SCH (09:00)
[2018-08-14 16:44] VITALS: BP 129/67
[2018-08-14] MEDS: QUEtiapine FUMARATE 200 MG TABLET PO SCH (20:45)
[2018-08-15] MEDS: QUEtiapine FUMARATE 100 MG TABLET PO SCH ×3 (08:57→17:20)
[2018-08-15] MEDS: DOCUSATE SODIUM 250 MG CAPSULE PO SCH ×2 (08:57→17:20)
[2018-08-15] MEDS: OXcarbazepine 300 MG TABLET PO SCH ×2 (08:57→17:20)
[2018-08-15] MEDS: SODIUM CHLORIDE 1 GM TABLET PO SCH ×3 (08:58→17:20)
[2018-08-15] MEDS: BENZTROPINE MESYLATE 2 MG TABLET PO SCH ×2 (08:58→17:20)
[2018-08-15] MEDS: NICOTINE 21 MG/24 HOUR PATCH TD SCH (08:58)
[2018-08-15] MEDS: PROPRANOLOL HCL 10 MG TABLET PO SCH ×2 (08:58→17:20)
[2018-08-15] MEDS: CloZAPine 100 MG TABLET PO SCH ×2 (08:58→20:19)
[2018-08-15] MEDS: CITALOPRAM HYDROBROMIDE 10 MG TABLET PO SCH (08:59)
[2018-08-15 14:01] VITALS: BP 104/68
[2018-08-15 16:58] VITALS: BP 127/89
[2018-08-15] MEDS: QUEtiapine FUMARATE 200 MG TABLET PO SCH (20:19)
[2018-08-15] MEDS: ZOLPIDEM TARTRATE 10 MG TABLET PO PRN (21:20)
[2018-08-16 08:00] VITALS: BP 113/70
[2018-08-16] MEDS: QUEtiapine FUMARATE 100 MG TABLET PO SCH ×3 (08:29→17:11)
[2018-08-16] MEDS: OXcarbazepine 300 MG TABLET PO SCH ×2 (08:29→17:11)
[2018-08-16] MEDS: DOCUSATE SODIUM 250 MG CAPSULE PO SCH ×2 (08:29→17:11)
[2018-08-16] MEDS: PROPRANOLOL HCL 10 MG TABLET PO SCH ×2 (08:29→17:11)
[2018-08-16] MEDS: CITALOPRAM HYDROBROMIDE 10 MG TABLET PO SCH (08:30)
[2018-08-16] MEDS: BENZTROPINE MESYLATE 2 MG TABLET PO SCH ×2 (08:30→17:11)
[2018-08-16] MEDS: SODIUM CHLORIDE 1 GM TABLET PO SCH ×3 (08:30→17:11)
[2018-08-16] MEDS: CloZAPine 100 MG TABLET PO SCH ×2 (08:30→20:17)
[2018-08-16] MEDS: NICOTINE 21 MG/24 HOUR PATCH TD SCH (09:00)
[2018-08-16 16:00] VITALS: BP 122/78
[2018-08-16] MEDS: QUEtiapine FUMARATE 200 MG TABLET PO SCH (20:17)
[2018-08-17 06:47] LABS: EOSINOPHILS % (AUTO) 0 % (1.0-6.0); HEMATOCRIT 37.8 % (36-46); HEMOGLOBIN 12.9 g/dL (12.0-16.0); LYMPHOCYTES # (AUTO) 1.5 K/uL (1.0-4.8); LYMPHOCYTES % (AUTO) 39.2 % (22.0-44.0); MEAN CORPUSCULAR HEMOGLOBIN 32.4 pg (26.0-34.0); MEAN CORPUSCULAR HGB CONC 34.3 G/dL (31.0-37.0); MEAN CORPUSCULAR VOLUME 95 fL (80-100); MONOCYTES # (AUTO) 0.5 K/uL (0.1-1.0); MONOCYTES % (AUTO) 11.9 % (2.0-9.0); NEUTROPHILS # (AUTO) 1.9 K/uL (1.8-7.7); NEUTROPHILS % (AUTO) 48.9 % (40.0-70.0); PLATELET COUNT (AUTO) 191 K/uL (150-450); RED BLOOD CELL COUNT(AUTO) 3.99 MIL/uL (4.00-5.20); RED CELL DISTRIBUTION WIDTH 12.8 % (11.5-14.5)
[2018-08-17 08:00] VITALS: BP 117/81
[2018-08-17] MEDS: SODIUM CHLORIDE 1 GM TABLET PO SCH ×3 (08:52→16:08)
[2018-08-17] MEDS: CITALOPRAM HYDROBROMIDE 10 MG TABLET PO SCH (08:52)
[2018-08-17] MEDS: PROPRANOLOL HCL 10 MG TABLET PO SCH ×2 (08:52→16:08)
[2018-08-17] MEDS: CloZAPine 100 MG TABLET PO SCH ×2 (08:52→20:11)
[2018-08-17] MEDS: BENZTROPINE MESYLATE 2 MG TABLET PO SCH ×2 (08:52→16:08)
[2018-08-17] MEDS: OXcarbazepine 300 MG TABLET PO SCH ×2 (08:53→16:08)
[2018-08-17] MEDS: DOCUSATE SODIUM 250 MG CAPSULE PO SCH ×2 (08:53→16:08)
[2018-08-17] MEDS: QUEtiapine FUMARATE 100 MG TABLET PO SCH ×3 (08:53→16:08)
[2018-08-17] MEDS: NICOTINE 21 MG/24 HOUR PATCH TD SCH (08:59)
[2018-08-17] MEDS: QUEtiapine FUMARATE 200 MG TABLET PO SCH (20:11)
[2018-08-17 22:17] VITALS: BP 136/90
[2018-08-18 08:00] VITALS: BP 104/77
[2018-08-18] MEDS: CloZAPine 100 MG TABLET PO SCH ×2 (08:12→20:08)
[2018-08-18] MEDS: DOCUSATE SODIUM 250 MG CAPSULE PO SCH ×2 (08:12→16:27)
[2018-08-18] MEDS: CITALOPRAM HYDROBROMIDE 10 MG TABLET PO SCH (08:12)
[2018-08-18] MEDS: PROPRANOLOL HCL 10 MG TABLET PO SCH ×2 (08:13→16:27)
[2018-08-18] MEDS: BENZTROPINE MESYLATE 2 MG TABLET PO SCH ×2 (08:13→16:27)
[2018-08-18] MEDS: SODIUM CHLORIDE 1 GM TABLET PO SCH ×3 (08:13→16:27)
[2018-08-18] MEDS: OXcarbazepine 300 MG TABLET PO SCH ×2 (08:13→16:27)
[2018-08-18] MEDS: QUEtiapine FUMARATE 100 MG TABLET PO SCH ×3 (08:14→16:27)
[2018-08-18] MEDS: NICOTINE 21 MG/24 HOUR PATCH TD SCH (09:00)
[2018-08-18 19:22] VITALS: BP 132/74
[2018-08-18] MEDS: QUEtiapine FUMARATE 200 MG TABLET PO SCH (20:07)
[2018-08-19] MEDS: DOCUSATE SODIUM 250 MG CAPSULE PO SCH ×2 (09:50→16:38)
[2018-08-19] MEDS: OXcarbazepine 300 MG TABLET PO SCH ×2 (09:50→16:51)
[2018-08-19] MEDS: BENZTROPINE MESYLATE 2 MG TABLET PO SCH ×2 (09:50→16:37)
[2018-08-19] MEDS: QUEtiapine FUMARATE 100 MG TABLET PO SCH ×3 (09:50→16:37)
[2018-08-19] MEDS: PROPRANOLOL HCL 10 MG TABLET PO SCH ×2 (09:50→16:37)
[2018-08-19] MEDS: CloZAPine 100 MG TABLET PO SCH ×2 (09:50→20:12)
[2018-08-19] MEDS: SODIUM CHLORIDE 1 GM TABLET PO SCH ×3 (09:50→16:48)
[2018-08-19] MEDS: CITALOPRAM HYDROBROMIDE 10 MG TABLET PO SCH (09:51)
[2018-08-19] MEDS: NICOTINE 21 MG/24 HOUR PATCH TD SCH (09:54)
[2018-08-19 10:41] VITALS: BP 98/63
[2018-08-19 18:05] VITALS: BP 112/89
[2018-08-19] MEDS: QUEtiapine FUMARATE 200 MG TABLET PO SCH (20:12)
[2018-08-20] MEDS: BENZTROPINE MESYLATE 2 MG TABLET PO SCH ×2 (08:28→17:22)
[2018-08-20] MEDS: QUEtiapine FUMARATE 100 MG TABLET PO SCH ×3 (08:28→17:22)
[2018-08-20] MEDS: CloZAPine 100 MG TABLET PO SCH ×2 (08:28→20:32)
[2018-08-20] MEDS: OXcarbazepine 300 MG TABLET PO SCH ×2 (08:28→17:22)
[2018-08-20] MEDS: PROPRANOLOL HCL 10 MG TABLET PO SCH ×2 (08:29→17:22)
[2018-08-20] MEDS: DOCUSATE SODIUM 250 MG CAPSULE PO SCH ×2 (08:29→17:22)
[2018-08-20] MEDS: SODIUM CHLORIDE 1 GM TABLET PO SCH ×3 (08:31→17:22)
[2018-08-20] MEDS: CITALOPRAM HYDROBROMIDE 10 MG TABLET PO SCH (08:31)
[2018-08-20] MEDS: NICOTINE 21 MG/24 HOUR PATCH TD SCH (08:32)
[2018-08-20 09:35] VITALS: BP 105/72
[2018-08-20] MEDS: QUEtiapine FUMARATE 200 MG TABLET PO SCH (20:32)
[2018-08-20 22:30] VITALS: BP 139/98
[2018-08-21] MEDS: NICOTINE 21 MG/24 HOUR PATCH TD SCH (09:00)
[2018-08-21] MEDS: SODIUM CHLORIDE 1 GM TABLET PO SCH ×3 (10:47→16:08)
[2018-08-21] MEDS: CITALOPRAM HYDROBROMIDE 10 MG TABLET PO SCH (10:47)
[2018-08-21] MEDS: QUEtiapine FUMARATE 100 MG TABLET PO SCH ×3 (10:50→16:08)
[2018-08-21] MEDS: OXcarbazepine 300 MG TABLET PO SCH ×2 (10:50→16:08)
[2018-08-21] MEDS: PROPRANOLOL HCL 10 MG TABLET PO SCH ×2 (10:50→16:08)
[2018-08-21] MEDS: BENZTROPINE MESYLATE 2 MG TABLET PO SCH ×2 (10:51→16:08)
[2018-08-21] MEDS: DOCUSATE SODIUM 250 MG CAPSULE PO SCH ×2 (10:51→16:08)
[2018-08-21] MEDS: CloZAPine 100 MG TABLET PO SCH ×2 (10:51→20:05)
[2018-08-21 19:16] VITALS: BP 124/80
[2018-08-21] MEDS: QUEtiapine FUMARATE 200 MG TABLET PO SCH (20:03)
[2018-08-22] MEDS: SODIUM CHLORIDE 1 GM TABLET PO SCH ×3 (08:56→16:08)
[2018-08-22] MEDS: CITALOPRAM HYDROBROMIDE 10 MG TABLET PO SCH (08:57)
[2018-08-22] MEDS: PROPRANOLOL HCL 10 MG TABLET PO SCH ×2 (08:59→16:09)
[2018-08-22] MEDS: QUEtiapine FUMARATE 100 MG TABLET PO SCH ×3 (08:59→16:08)
[2018-08-22] MEDS: CloZAPine 100 MG TABLET PO SCH ×2 (08:59→20:03)
[2018-08-22] MEDS: OXcarbazepine 300 MG TABLET PO SCH ×2 (08:59→16:08)
[2018-08-22] MEDS: BENZTROPINE MESYLATE 2 MG TABLET PO SCH ×2 (08:59→16:09)
[2018-08-22] MEDS: NICOTINE 21 MG/24 HOUR PATCH TD SCH (09:00)
[2018-08-22] MEDS: DOCUSATE SODIUM 250 MG CAPSULE PO SCH ×2 (09:06→16:08)
[2018-08-22] MEDS: OLANZapine 5 MG TABLET PO PRN (16:11)
[2018-08-22] MEDS: LORazepam 2 MG TABLET PO PRN (16:11)
[2018-08-22 16:42] VITALS: BP 127/84
[2018-08-22] MEDS: QUEtiapine FUMARATE 200 MG TABLET PO SCH (20:03)
[2018-08-23 08:00] VITALS: BP 125/81
[2018-08-23] MEDS: NICOTINE 21 MG/24 HOUR PATCH TD SCH (09:00)
[2018-08-23] MEDS: CITALOPRAM HYDROBROMIDE 10 MG TABLET PO SCH (09:18)
[2018-08-23] MEDS: SODIUM CHLORIDE 1 GM TABLET PO SCH ×3 (09:18→16:20)
[2018-08-23] MEDS: CloZAPine 100 MG TABLET PO SCH ×2 (09:20→20:18)
[2018-08-23] MEDS: BENZTROPINE MESYLATE 2 MG TABLET PO SCH ×2 (09:20→16:20)
[2018-08-23] MEDS: PROPRANOLOL HCL 10 MG TABLET PO SCH ×2 (09:20→16:20)
[2018-08-23] MEDS: QUEtiapine FUMARATE 100 MG TABLET PO SCH ×3 (09:20→16:22)
[2018-08-23] MEDS: OXcarbazepine 300 MG TABLET PO SCH ×2 (09:20→16:20)
[2018-08-23] MEDS: DOCUSATE SODIUM 250 MG CAPSULE PO SCH ×2 (09:21→16:20)
[2018-08-23 16:00] VITALS: BP 116/75
[2018-08-23] MEDS: QUEtiapine FUMARATE 200 MG TABLET PO SCH (20:18)
[2018-08-24 06:48] LABS: EOSINOPHILS % (AUTO) 0 % (1.0-6.0); HEMATOCRIT 35.6 % (36-46); HEMOGLOBIN 12.6 g/dL (12.0-16.0); LYMPHOCYTES # (AUTO) 2.1 K/uL (1.0-4.8); LYMPHOCYTES % (AUTO) 49.8 % (22.0-44.0); MEAN CORPUSCULAR HEMOGLOBIN 32.7 pg (26.0-34.0); MEAN CORPUSCULAR HGB CONC 35.5 G/dL (31.0-37.0); MEAN CORPUSCULAR VOLUME 92 fL (80-100); MONOCYTES # (AUTO) 0.5 K/uL (0.1-1.0); MONOCYTES % (AUTO) 11.7 % (2.0-9.0); NEUTROPHILS # (AUTO) 1.6 K/uL (1.8-7.7); NEUTROPHILS % (AUTO) 38.5 % (40.0-70.0); PLATELET COUNT (AUTO) 200 K/uL (150-450); RED BLOOD CELL COUNT(AUTO) 3.86 MIL/uL (4.00-5.20); RED CELL DISTRIBUTION WIDTH 12.6 % (11.5-14.5)
[2018-08-24] MEDS: NICOTINE 21 MG/24 HOUR PATCH TD SCH (08:23)
[2018-08-24] MEDS: BENZTROPINE MESYLATE 2 MG TABLET PO SCH ×2 (08:24→16:04)
[2018-08-24] MEDS: OXcarbazepine 300 MG TABLET PO SCH ×2 (08:24→16:03)
[2018-08-24] MEDS: DOCUSATE SODIUM 250 MG CAPSULE PO SCH ×2 (08:24→16:03)
[2018-08-24] MEDS: PROPRANOLOL HCL 10 MG TABLET PO SCH ×2 (08:25→16:03)
[2018-08-24] MEDS: SODIUM CHLORIDE 1 GM TABLET PO SCH ×3 (08:25→16:04)
[2018-08-24] MEDS: QUEtiapine FUMARATE 100 MG TABLET PO SCH ×3 (08:25→16:03)
[2018-08-24] MEDS: CloZAPine 100 MG TABLET PO SCH ×2 (08:25→20:15)
[2018-08-24] MEDS: CITALOPRAM HYDROBROMIDE 10 MG TABLET PO SCH (08:25)
[2018-08-24 09:00] VITALS: BP 155/114
[2018-08-24 18:26] VITALS: BP 129/84
[2018-08-24] MEDS: QUEtiapine FUMARATE 200 MG TABLET PO SCH (20:15)
[2018-08-25] MEDS: SODIUM CHLORIDE 1 GM TABLET PO SCH ×3 (09:00→16:31)
[2018-08-25] MEDS: CloZAPine 100 MG TABLET PO SCH ×2 (09:00→20:11)
[2018-08-25] MEDS: QUEtiapine FUMARATE 100 MG TABLET PO SCH ×3 (09:00→16:30)
[2018-08-25] MEDS: NICOTINE 21 MG/24 HOUR PATCH TD SCH (09:00)
[2018-08-25] MEDS: OXcarbazepine 300 MG TABLET PO SCH ×2 (09:01→16:30)
[2018-08-25] MEDS: BENZTROPINE MESYLATE 2 MG TABLET PO SCH ×2 (09:01→16:30)
[2018-08-25] MEDS: PROPRANOLOL HCL 10 MG TABLET PO SCH ×2 (09:01→16:29)
[2018-08-25] MEDS: CITALOPRAM HYDROBROMIDE 10 MG TABLET PO SCH (09:01)
[2018-08-25] MEDS: DOCUSATE SODIUM 250 MG CAPSULE PO SCH ×2 (09:02→16:30)
[2018-08-25] MEDS: LORazepam 2 MG TABLET PO PRN ×2 (12:20→12:21)
[2018-08-25] MEDS: OLANZapine 5 MG TABLET PO PRN ×2 (12:20→12:21)
[2018-08-25 16:27] VITALS: BP 115/64
[2018-08-25 18:30] VITALS: BP 115/83
[2018-08-25] MEDS: QUEtiapine FUMARATE 200 MG TABLET PO SCH (20:10)
[2018-08-26] MEDS: DOCUSATE SODIUM 250 MG CAPSULE PO SCH ×2 (07:53→16:40)
[2018-08-26] MEDS: SODIUM CHLORIDE 1 GM TABLET PO SCH ×3 (07:53→16:41)
[2018-08-26] MEDS: CITALOPRAM HYDROBROMIDE 10 MG TABLET PO SCH (07:53)
[2018-08-26] MEDS: PROPRANOLOL HCL 10 MG TABLET PO SCH ×2 (07:53→16:41)
[2018-08-26] MEDS: QUEtiapine FUMARATE 100 MG TABLET PO SCH ×3 (07:53→16:41)
[2018-08-26] MEDS: CloZAPine 100 MG TABLET PO SCH ×2 (07:53→20:35)
[2018-08-26] MEDS: OXcarbazepine 300 MG TABLET PO SCH ×2 (07:53→16:41)
[2018-08-26] MEDS: BENZTROPINE MESYLATE 2 MG TABLET PO SCH ×2 (07:53→16:41)
[2018-08-26] MEDS: NICOTINE 21 MG/24 HOUR PATCH TD SCH (09:00)
[2018-08-26 10:12] VITALS: BP 124/83
[2018-08-26] MEDS: LORazepam 2 MG TABLET PO PRN (12:12)
[2018-08-26] MEDS: OLANZapine 5 MG TABLET PO PRN (12:12)
[2018-08-26 17:12] VITALS: BP 133/68
[2018-08-26] MEDS: QUEtiapine FUMARATE 200 MG TABLET PO SCH (20:35)
[2018-08-27] MEDS: BENZTROPINE MESYLATE 2 MG TABLET PO SCH ×2 (08:19→16:29)
[2018-08-27] MEDS: CITALOPRAM HYDROBROMIDE 10 MG TABLET PO SCH (08:19)
[2018-08-27] MEDS: CloZAPine 100 MG TABLET PO SCH ×2 (08:19→20:29)
[2018-08-27] MEDS: OXcarbazepine 300 MG TABLET PO SCH ×2 (08:19→16:29)
[2018-08-27] MEDS: QUEtiapine FUMARATE 100 MG TABLET PO SCH ×3 (08:19→16:29)
[2018-08-27] MEDS: DOCUSATE SODIUM 250 MG CAPSULE PO SCH ×2 (08:19→16:30)
[2018-08-27] MEDS: SODIUM CHLORIDE 1 GM TABLET PO SCH ×3 (08:20→16:29)
[2018-08-27] MEDS: NICOTINE 21 MG/24 HOUR PATCH TD SCH (08:20)
[2018-08-27] MEDS: PROPRANOLOL HCL 10 MG TABLET PO SCH ×2 (08:21→16:29)
[2018-08-27 09:17] VITALS: BP 115/70
[2018-08-27] MEDS: LORazepam 2 MG TABLET PO PRN (12:27)
[2018-08-27] MEDS: OLANZapine 5 MG TABLET PO PRN (12:27)
[2018-08-27 16:39] VITALS: BP 131/69
[2018-08-27] MEDS: QUEtiapine FUMARATE 200 MG TABLET PO SCH (20:29)
[2018-08-28] MEDS: SODIUM CHLORIDE 1 GM TABLET PO SCH ×3 (07:48→16:10)
[2018-08-28] MEDS: OXcarbazepine 300 MG TABLET PO SCH ×2 (07:48→16:10)
[2018-08-28] MEDS: BENZTROPINE MESYLATE 2 MG TABLET PO SCH ×2 (07:48→16:10)
[2018-08-28] MEDS: DOCUSATE SODIUM 250 MG CAPSULE PO SCH ×2 (07:48→16:10)
[2018-08-28] MEDS: CITALOPRAM HYDROBROMIDE 10 MG TABLET PO SCH (07:48)
[2018-08-28] MEDS: PROPRANOLOL HCL 10 MG TABLET PO SCH ×2 (07:48→16:10)
[2018-08-28] MEDS: QUEtiapine FUMARATE 100 MG TABLET PO SCH ×3 (07:48→16:10)
[2018-08-28] MEDS: CloZAPine 100 MG TABLET PO SCH ×2 (07:48→20:31)
[2018-08-28] MEDS: NICOTINE 21 MG/24 HOUR PATCH TD SCH (09:00)
[2018-08-28 09:22] VITALS: BP 120/84
[2018-08-28] MEDS: LORazepam 2 MG TABLET PO PRN (12:30)
[2018-08-28] MEDS: OLANZapine 5 MG TABLET PO PRN (12:30)
[2018-08-28 16:15] VITALS: BP 115/68
[2018-08-28] MEDS: QUEtiapine FUMARATE 200 MG TABLET PO SCH (20:30)
[2018-08-29 09:00] VITALS: BP 102/67
[2018-08-29] MEDS: SODIUM CHLORIDE 1 GM TABLET PO SCH ×3 (09:29→16:18)
[2018-08-29] MEDS: CITALOPRAM HYDROBROMIDE 10 MG TABLET PO SCH (09:30)
[2018-08-29] MEDS: CloZAPine 100 MG TABLET PO SCH ×2 (09:32→20:34)
[2018-08-29] MEDS: PROPRANOLOL HCL 10 MG TABLET PO SCH ×2 (09:32→16:18)
[2018-08-29] MEDS: DOCUSATE SODIUM 250 MG CAPSULE PO SCH ×2 (09:32→16:18)
[2018-08-29] MEDS: QUEtiapine FUMARATE 100 MG TABLET PO SCH ×3 (09:32→16:19)
[2018-08-29] MEDS: BENZTROPINE MESYLATE 2 MG TABLET PO SCH ×2 (09:32→16:19)
[2018-08-29] MEDS: OXcarbazepine 300 MG TABLET PO SCH ×2 (09:33→16:18)
[2018-08-29] MEDS: NICOTINE 21 MG/24 HOUR PATCH TD SCH (09:33)
[2018-08-29] MEDS: LORazepam 2 MG TABLET PO PRN (14:26)
[2018-08-29] MEDS: OLANZapine 5 MG TABLET PO PRN (14:26)
[2018-08-29 17:05] VITALS: BP 115/76
[2018-08-29] MEDS: QUEtiapine FUMARATE 200 MG TABLET PO SCH (20:34)
[2018-08-30] MEDS: QUEtiapine FUMARATE 100 MG TABLET PO SCH ×3 (07:56→16:31)
[2018-08-30] MEDS: SODIUM CHLORIDE 1 GM TABLET PO SCH ×3 (07:56→16:30)
[2018-08-30] MEDS: BENZTROPINE MESYLATE 2 MG TABLET PO SCH ×2 (07:56→16:39)
[2018-08-30] MEDS: OXcarbazepine 300 MG TABLET PO SCH ×2 (07:56→16:31)
[2018-08-30] MEDS: PROPRANOLOL HCL 10 MG TABLET PO SCH ×2 (07:56→16:30)
[2018-08-30] MEDS: CITALOPRAM HYDROBROMIDE 10 MG TABLET PO SCH (07:56)
[2018-08-30] MEDS: DOCUSATE SODIUM 250 MG CAPSULE PO SCH ×2 (07:56→16:39)
[2018-08-30] MEDS: CloZAPine 100 MG TABLET PO SCH ×2 (07:56→20:37)
[2018-08-30] MEDS: NICOTINE 21 MG/24 HOUR PATCH TD SCH (09:00)
[2018-08-30] MEDS: LORazepam 2 MG TABLET PO PRN ×2 (10:57→17:54)
[2018-08-30] MEDS: OLANZapine 5 MG TABLET PO PRN ×2 (10:57→17:54)
[2018-08-30 10:59] VITALS: BP 109/74
[2018-08-30 16:55] VITALS: BP 104/69
[2018-08-30] MEDS: QUEtiapine FUMARATE 200 MG TABLET PO SCH (20:37)
[2018-08-31 05:58] LABS: EOSINOPHILS % (AUTO) 0 % (1.0-6.0); HEMATOCRIT 38.1 % (36-46); HEMOGLOBIN 13.2 g/dL (12.0-16.0); LYMPHOCYTES # (AUTO) 1.8 K/uL (1.0-4.8); LYMPHOCYTES % (AUTO) 42.7 % (22.0-44.0); MEAN CORPUSCULAR HEMOGLOBIN 32.1 pg (26.0-34.0); MEAN CORPUSCULAR HGB CONC 34.6 G/dL (31.0-37.0); MEAN CORPUSCULAR VOLUME 93 fL (80-100); MONOCYTES # (AUTO) 0.6 K/uL (0.1-1.0); MONOCYTES % (AUTO) 14.8 % (2.0-9.0); NEUTROPHILS # (AUTO) 1.8 K/uL (1.8-7.7); NEUTROPHILS % (AUTO) 42.5 % (40.0-70.0); PLATELET COUNT (AUTO) 227 K/uL (150-450); RED BLOOD CELL COUNT(AUTO) 4.11 MIL/uL (4.00-5.20); RED CELL DISTRIBUTION WIDTH 12.9 % (11.5-14.5)
[2018-08-31] MEDS: OXcarbazepine 300 MG TABLET PO SCH ×2 (07:49→17:49)
[2018-08-31] MEDS: DOCUSATE SODIUM 250 MG CAPSULE PO SCH ×2 (07:50→17:49)
[2018-08-31] MEDS: CloZAPine 100 MG TABLET PO SCH ×2 (07:50→21:08)
[2018-08-31] MEDS: BENZTROPINE MESYLATE 2 MG TABLET PO SCH ×2 (07:50→17:48)
[2018-08-31] MEDS: QUEtiapine FUMARATE 100 MG TABLET PO SCH ×3 (07:50→17:49)
[2018-08-31] MEDS: SODIUM CHLORIDE 1 GM TABLET PO SCH ×3 (07:50→17:48)
[2018-08-31] MEDS: PROPRANOLOL HCL 10 MG TABLET PO SCH ×2 (07:50→17:49)
[2018-08-31] MEDS: LORazepam 2 MG TABLET PO PRN ×2 (07:51→17:49)
[2018-08-31] MEDS: CITALOPRAM HYDROBROMIDE 10 MG TABLET PO SCH (07:51)
[2018-08-31] MEDS: OLANZapine 5 MG TABLET PO PRN (07:51)
[2018-08-31 08:36] VITALS: BP 120/75
[2018-08-31 16:08] VITALS: BP 115/78
[2018-08-31] MEDS: QUEtiapine FUMARATE 200 MG TABLET PO SCH (21:08)
[2018-09-01] MEDS: CloZAPine 100 MG TABLET PO SCH ×2 (07:49→21:00)
[2018-09-01] MEDS: QUEtiapine FUMARATE 100 MG TABLET PO SCH ×3 (07:49→17:02)
[2018-09-01] MEDS: BENZTROPINE MESYLATE 2 MG TABLET PO SCH ×2 (07:49→17:02)
[2018-09-01] MEDS: OXcarbazepine 300 MG TABLET PO SCH ×2 (07:49→17:03)
[2018-09-01] MEDS: DOCUSATE SODIUM 250 MG CAPSULE PO SCH ×2 (07:49→17:00)
[2018-09-01] MEDS: SODIUM CHLORIDE 1 GM TABLET PO SCH ×3 (07:50→17:03)
[2018-09-01] MEDS: CITALOPRAM HYDROBROMIDE 10 MG TABLET PO SCH (07:50)
[2018-09-01] MEDS: OLANZapine 5 MG TABLET PO PRN (07:50)
[2018-09-01] MEDS: PROPRANOLOL HCL 10 MG TABLET PO SCH ×2 (07:50→17:07)
[2018-09-01] MEDS: LORazepam 2 MG TABLET PO PRN (07:50)
[2018-09-01 09:02] VITALS: BP 132/76
[2018-09-01 19:00] VITALS: BP 126/81
[2018-09-01] MEDS: QUEtiapine FUMARATE 200 MG TABLET PO SCH (21:00)
[2018-09-02] MEDS: LORazepam 2 MG TABLET PO PRN (06:14)
[2018-09-02] MEDS: OXcarbazepine 300 MG TABLET PO SCH ×2 (08:10→16:55)
[2018-09-02] MEDS: DOCUSATE SODIUM 250 MG CAPSULE PO SCH ×2 (08:10→16:55)
[2018-09-02] MEDS: CloZAPine 100 MG TABLET PO SCH ×2 (08:10→20:18)
[2018-09-02] MEDS: BENZTROPINE MESYLATE 2 MG TABLET PO SCH ×2 (08:11→16:55)
[2018-09-02] MEDS: SODIUM CHLORIDE 1 GM TABLET PO SCH ×3 (08:11→16:55)
[2018-09-02] MEDS: PROPRANOLOL HCL 10 MG TABLET PO SCH ×2 (08:11→16:55)
[2018-09-02] MEDS: QUEtiapine FUMARATE 100 MG TABLET PO SCH ×3 (08:11→16:55)
[2018-09-02] MEDS: CITALOPRAM HYDROBROMIDE 10 MG TABLET PO SCH (08:12)
[2018-09-02 09:00] VITALS: BP 122/91
[2018-09-02 17:22] VITALS: BP 136/79
[2018-09-02] MEDS: QUEtiapine FUMARATE 200 MG TABLET PO SCH (20:18)
[2018-09-03 09:00] VITALS: BP 116/73
[2018-09-03] MEDS: PROPRANOLOL HCL 10 MG TABLET PO SCH ×2 (09:22→16:28)
[2018-09-03] MEDS: BENZTROPINE MESYLATE 2 MG TABLET PO SCH ×2 (09:22→16:28)
[2018-09-03] MEDS: CloZAPine 100 MG TABLET PO SCH ×2 (09:22→21:41)
[2018-09-03] MEDS: QUEtiapine FUMARATE 100 MG TABLET PO SCH ×3 (09:22→16:28)
[2018-09-03] MEDS: OXcarbazepine 300 MG TABLET PO SCH ×2 (09:22→16:28)
[2018-09-03] MEDS: SODIUM CHLORIDE 1 GM TABLET PO SCH ×3 (09:23→16:28)
[2018-09-03] MEDS: CITALOPRAM HYDROBROMIDE 10 MG TABLET PO SCH (09:23)
[2018-09-03] MEDS: DOCUSATE SODIUM 250 MG CAPSULE PO SCH ×2 (09:24→16:28)
[2018-09-03 16:29] VITALS: BP 135/83
[2018-09-03] MEDS: QUEtiapine FUMARATE 200 MG TABLET PO SCH (21:42)
[2018-09-04] MEDS: CloZAPine 100 MG TABLET PO SCH ×2 (07:42→20:29)
[2018-09-04] MEDS: DOCUSATE SODIUM 250 MG CAPSULE PO SCH ×2 (07:42→16:47)
[2018-09-04] MEDS: PROPRANOLOL HCL 10 MG TABLET PO SCH ×2 (07:42→16:47)
[2018-09-04] MEDS: BENZTROPINE MESYLATE 2 MG TABLET PO SCH ×2 (07:42→16:47)
[2018-09-04] MEDS: CITALOPRAM HYDROBROMIDE 10 MG TABLET PO SCH (07:42)
[2018-09-04] MEDS: QUEtiapine FUMARATE 100 MG TABLET PO SCH ×3 (07:42→16:47)
[2018-09-04] MEDS: OXcarbazepine 300 MG TABLET PO SCH ×2 (07:42→16:47)
[2018-09-04] MEDS: SODIUM CHLORIDE 1 GM TABLET PO SCH ×3 (07:43→16:46)
[2018-09-04 08:00] VITALS: BP 117/85
[2018-09-04 16:47] VITALS: BP 125/92
[2018-09-04] MEDS: QUEtiapine FUMARATE 200 MG TABLET PO SCH (20:29)
[2018-09-05] MEDS: PROPRANOLOL HCL 10 MG TABLET PO SCH ×2 (08:08→18:03)
[2018-09-05] MEDS: SODIUM CHLORIDE 1 GM TABLET PO SCH ×3 (08:09→18:03)
[2018-09-05] MEDS: OXcarbazepine 300 MG TABLET PO SCH ×2 (08:09→18:03)
[2018-09-05] MEDS: BENZTROPINE MESYLATE 2 MG TABLET PO SCH ×2 (08:09→18:03)
[2018-09-05] MEDS: QUEtiapine FUMARATE 100 MG TABLET PO SCH ×3 (08:09→18:03)
[2018-09-05] MEDS: DOCUSATE SODIUM 250 MG CAPSULE PO SCH ×2 (08:09→18:03)
[2018-09-05] MEDS: CITALOPRAM HYDROBROMIDE 10 MG TABLET PO SCH (08:09)
[2018-09-05] MEDS: CloZAPine 100 MG TABLET PO SCH ×2 (08:09→20:31)
[2018-09-05] MEDS ORDERED: CALCIUM CARBONATE 500 MG CHEWABLE TABLET CHEW PRN (14:15)
[2018-09-05 17:00] VITALS: BP 125/91
[2018-09-05] MEDS: QUEtiapine FUMARATE 200 MG TABLET PO SCH (20:31)
[2018-09-06 08:00] VITALS: BP 132/90
[2018-09-06] MEDS: DOCUSATE SODIUM 250 MG CAPSULE PO SCH ×2 (08:20→16:06)
[2018-09-06] MEDS: QUEtiapine FUMARATE 100 MG TABLET PO SCH ×3 (08:20→16:07)
[2018-09-06] MEDS: BENZTROPINE MESYLATE 2 MG TABLET PO SCH ×2 (08:21→16:06)
[2018-09-06] MEDS: PROPRANOLOL HCL 10 MG TABLET PO SCH ×2 (08:21→16:07)
[2018-09-06] MEDS: SODIUM CHLORIDE 1 GM TABLET PO SCH ×3 (08:21→16:07)
[2018-09-06] MEDS: OXcarbazepine 300 MG TABLET PO SCH ×2 (08:21→16:07)
[2018-09-06] MEDS: CloZAPine 100 MG TABLET PO SCH ×2 (08:21→20:24)
[2018-09-06] MEDS: CITALOPRAM HYDROBROMIDE 10 MG TABLET PO SCH (08:21)
[2018-09-06 19:34] VITALS: BP 102/63
[2018-09-06] MEDS: QUEtiapine FUMARATE 200 MG TABLET PO SCH (20:24)
[2018-09-07 06:23] LABS: BASOPHILS % (AUTO) 0.1 % (0.0-2.0); EOSINOPHILS % (AUTO) 0 % (1.0-6.0); HEMATOCRIT 36.4 % (36-46); HEMOGLOBIN 12.5 g/dL (12.0-16.0); LYMPHOCYTES # (AUTO) 1.9 K/uL (1.0-4.8); LYMPHOCYTES % (AUTO) 41.7 % (22.0-44.0); MEAN CORPUSCULAR HEMOGLOBIN 31.8 pg (26.0-34.0); MEAN CORPUSCULAR HGB CONC 34.4 G/dL (31.0-37.0); MEAN CORPUSCULAR VOLUME 93 fL (80-100); MONOCYTES # (AUTO) 0.6 K/uL (0.1-1.0); MONOCYTES % (AUTO) 13.6 % (2.0-9.0); NEUTROPHILS # (AUTO) 2.1 K/uL (1.8-7.7); NEUTROPHILS % (AUTO) 44.6 % (40.0-70.0); PLATELET COUNT (AUTO) 216 K/uL (150-450); RED BLOOD CELL COUNT(AUTO) 3.93 MIL/uL (4.00-5.20); RED CELL DISTRIBUTION WIDTH 12.6 % (11.5-14.5)
[2018-09-07 08:00] VITALS: BP 112/82
[2018-09-07] MEDS: QUEtiapine FUMARATE 100 MG TABLET PO SCH ×3 (09:02→16:55)
[2018-09-07] MEDS: OXcarbazepine 300 MG TABLET PO SCH ×2 (09:02→16:55)
[2018-09-07] MEDS: BENZTROPINE MESYLATE 2 MG TABLET PO SCH ×2 (09:02→16:54)
[2018-09-07] MEDS: CloZAPine 100 MG TABLET PO SCH ×2 (09:02→20:16)
[2018-09-07] MEDS: CITALOPRAM HYDROBROMIDE 10 MG TABLET PO SCH (09:02)
[2018-09-07] MEDS: SODIUM CHLORIDE 1 GM TABLET PO SCH ×3 (09:02→16:54)
[2018-09-07] MEDS: DOCUSATE SODIUM 250 MG CAPSULE PO SCH ×2 (09:02→16:54)
[2018-09-07] MEDS: PROPRANOLOL HCL 10 MG TABLET PO SCH ×2 (10:50→16:54)
[2018-09-07 17:00] VITALS: BP 116/79
[2018-09-07] MEDS: QUEtiapine FUMARATE 200 MG TABLET PO SCH (20:16)
[2018-09-08] MEDS: BENZTROPINE MESYLATE 2 MG TABLET PO SCH ×2 (09:04→16:19)
[2018-09-08] MEDS: CloZAPine 100 MG TABLET PO SCH ×2 (09:04→20:03)
[2018-09-08] MEDS: DOCUSATE SODIUM 250 MG CAPSULE PO SCH ×2 (09:04→16:08)
[2018-09-08] MEDS: OXcarbazepine 300 MG TABLET PO SCH ×2 (09:04→16:09)
[2018-09-08] MEDS: PROPRANOLOL HCL 10 MG TABLET PO SCH ×2 (09:04→16:08)
[2018-09-08] MEDS: NICOTINE 21 MG/24 HOUR PATCH TD PRN (09:04)
[2018-09-08] MEDS: LORazepam 2 MG TABLET PO PRN ×2 (09:04→16:08)
[2018-09-08] MEDS: QUEtiapine FUMARATE 100 MG TABLET PO SCH ×3 (09:04→16:08)
[2018-09-08] MEDS: OLANZapine 5 MG TABLET PO PRN (09:04)
[2018-09-08] MEDS: SODIUM CHLORIDE 1 GM TABLET PO SCH ×3 (09:05→16:09)
[2018-09-08] MEDS: CITALOPRAM HYDROBROMIDE 10 MG TABLET PO SCH (09:05)
[2018-09-08 13:26] LABS: AMPHET/METH SCREEN,URINE NEGATIVE (NEGATIVE); BARBITURATE SCREEN, URINE NEGATIVE (NEGATIVE); BENZODIAZEPINES SCREEN,URINE NEGATIVE (NEGATIVE); CANNABINOID SCREEN,URINE NEGATIVE (NEGATIVE); COCAINE SCREEN,URINE NEGATIVE (NEGATIVE); METHADONE SCREEN, URINE NEGATIVE (NEGATIVE); OPIATE SCREEN,URINE NEGATIVE (NEGATIVE); PHENCYCLIDINE SCREEN,URINE NEGATIVE (NEGATIVE)
[2018-09-08] MEDS: QUEtiapine FUMARATE 200 MG TABLET PO SCH (20:03)
[2018-09-09] MEDS: CloZAPine 100 MG TABLET PO SCH ×2 (10:11→21:28)
[2018-09-09] MEDS: PROPRANOLOL HCL 10 MG TABLET PO SCH ×2 (10:11→17:37)
[2018-09-09] MEDS: OXcarbazepine 300 MG TABLET PO SCH ×2 (10:11→17:37)
[2018-09-09] MEDS: DOCUSATE SODIUM 250 MG CAPSULE PO SCH ×2 (10:11→17:37)
[2018-09-09] MEDS: SODIUM CHLORIDE 1 GM TABLET PO SCH ×3 (10:11→17:37)
[2018-09-09] MEDS: CITALOPRAM HYDROBROMIDE 10 MG TABLET PO SCH (10:11)
[2018-09-09] MEDS: BENZTROPINE MESYLATE 2 MG TABLET PO SCH ×2 (10:11→17:37)
[2018-09-09] MEDS: QUEtiapine FUMARATE 100 MG TABLET PO SCH ×3 (10:11→17:36)
[2018-09-09 16:59] VITALS: BP 120/69
[2018-09-09] MEDS: QUEtiapine FUMARATE 200 MG TABLET PO SCH (21:28)
[2018-09-10 08:00] VITALS: BP 111/68
[2018-09-10] MEDS: CITALOPRAM HYDROBROMIDE 10 MG TABLET PO SCH (09:34)
[2018-09-10] MEDS: SODIUM CHLORIDE 1 GM TABLET PO SCH ×3 (09:34→16:11)
[2018-09-10] MEDS: PROPRANOLOL HCL 10 MG TABLET PO SCH ×2 (09:37→16:11)
[2018-09-10] MEDS: BENZTROPINE MESYLATE 2 MG TABLET PO SCH ×2 (09:37→16:11)
[2018-09-10] MEDS: LORazepam 2 MG TABLET PO PRN (09:37)
[2018-09-10] MEDS: DOCUSATE SODIUM 250 MG CAPSULE PO SCH ×2 (09:37→16:11)
[2018-09-10] MEDS: CloZAPine 100 MG TABLET PO SCH ×2 (09:37→20:52)
[2018-09-10] MEDS: OXcarbazepine 300 MG TABLET PO SCH ×2 (09:37→16:11)
[2018-09-10] MEDS: OLANZapine 5 MG TABLET PO PRN (09:37)
[2018-09-10] MEDS: QUEtiapine FUMARATE 100 MG TABLET PO SCH ×3 (09:38→16:11)
[2018-09-10 17:02] VITALS: BP 127/81
[2018-09-10] MEDS: QUEtiapine FUMARATE 200 MG TABLET PO SCH (20:52)
[2018-09-11 08:00] VITALS: BP 107/64
[2018-09-11] MEDS: DOCUSATE SODIUM 250 MG CAPSULE PO SCH ×2 (08:23→17:19)
[2018-09-11] MEDS: QUEtiapine FUMARATE 100 MG TABLET PO SCH ×3 (08:23→17:19)
[2018-09-11] MEDS: CloZAPine 100 MG TABLET PO SCH ×2 (08:23→20:34)
[2018-09-11] MEDS: BENZTROPINE MESYLATE 2 MG TABLET PO SCH ×2 (08:23→17:19)
[2018-09-11] MEDS: OXcarbazepine 300 MG TABLET PO SCH ×2 (08:23→17:19)
[2018-09-11] MEDS: PROPRANOLOL HCL 10 MG TABLET PO SCH ×2 (08:23→17:19)
[2018-09-11] MEDS: SODIUM CHLORIDE 1 GM TABLET PO SCH ×3 (08:24→17:19)
[2018-09-11] MEDS: CITALOPRAM HYDROBROMIDE 10 MG TABLET PO SCH (08:24)
[2018-09-11] MEDS: LORazepam 2 MG TABLET PO PRN (08:40)
[2018-09-11 19:55] VITALS: BP 122/60
[2018-09-11] MEDS: QUEtiapine FUMARATE 200 MG TABLET PO SCH (20:33)
[2018-09-12] MEDS: BENZTROPINE MESYLATE 2 MG TABLET PO SCH ×2 (07:46→16:25)
[2018-09-12] MEDS: OXcarbazepine 300 MG TABLET PO SCH ×2 (07:46→16:24)
[2018-09-12] MEDS: DOCUSATE SODIUM 250 MG CAPSULE PO SCH ×2 (07:46→16:25)
[2018-09-12] MEDS: CloZAPine 100 MG TABLET PO SCH ×2 (07:46→20:27)
[2018-09-12] MEDS: CITALOPRAM HYDROBROMIDE 10 MG TABLET PO SCH (07:47)
[2018-09-12] MEDS: SODIUM CHLORIDE 1 GM TABLET PO SCH ×3 (07:47→16:25)
[2018-09-12] MEDS: QUEtiapine FUMARATE 100 MG TABLET PO SCH ×3 (07:47→16:25)
[2018-09-12] MEDS: PROPRANOLOL HCL 10 MG TABLET PO SCH ×2 (07:47→16:25)
[2018-09-12] MEDS: NICOTINE 21 MG/24 HOUR PATCH TD PRN (07:52)
[2018-09-12 08:02] VITALS: BP 134/74
[2018-09-12] MEDS: LORazepam 2 MG TABLET PO PRN ×2 (09:13→19:05)
[2018-09-12] MEDS: OLANZapine 5 MG TABLET PO PRN (09:15)
[2018-09-12 16:38] VITALS: BP 124/72
[2018-09-12] MEDS: QUEtiapine FUMARATE 200 MG TABLET PO SCH (20:27)
[2018-09-13 08:15] VITALS: BP 98/73
[2018-09-13] MEDS: SODIUM CHLORIDE 1 GM TABLET PO SCH ×3 (08:36→17:17)
[2018-09-13] MEDS: BENZTROPINE MESYLATE 2 MG TABLET PO SCH ×2 (08:36→17:17)
[2018-09-13] MEDS: OXcarbazepine 300 MG TABLET PO SCH ×2 (08:37→17:17)
[2018-09-13] MEDS: CloZAPine 100 MG TABLET PO SCH ×2 (08:37→20:22)
[2018-09-13] MEDS: PROPRANOLOL HCL 10 MG TABLET PO SCH ×2 (08:37→17:17)
[2018-09-13] MEDS: QUEtiapine FUMARATE 100 MG TABLET PO SCH ×3 (08:37→17:17)
[2018-09-13] MEDS: CITALOPRAM HYDROBROMIDE 10 MG TABLET PO SCH (08:37)
[2018-09-13] MEDS: LORazepam 2 MG TABLET PO PRN ×2 (08:38→14:44)
[2018-09-13] MEDS: DOCUSATE SODIUM 250 MG CAPSULE PO SCH ×2 (08:38→17:17)
[2018-09-13] MEDS: OLANZapine 5 MG TABLET PO PRN (09:06)
[2018-09-13] MEDS: QUEtiapine FUMARATE 200 MG TABLET PO SCH (20:22)
[2018-09-14 05:56] LABS: BASOPHILS % (AUTO) 0.1 % (0.0-2.0); EOSINOPHILS % (AUTO) 0 % (1.0-6.0); HEMATOCRIT 37.7 % (36-46); LYMPHOCYTES # (AUTO) 1.6 K/uL (1.0-4.8); LYMPHOCYTES % (AUTO) 22.4 % (22.0-44.0); MEAN CORPUSCULAR HGB CONC 34.5 G/dL (31.0-37.0); MEAN CORPUSCULAR VOLUME 93 fL (80-100); MONOCYTES # (AUTO) 0.8 K/uL (0.1-1.0); MONOCYTES % (AUTO) 11.1 % (2.0-9.0); NEUTROPHILS # (AUTO) 4.8 K/uL (1.8-7.7); NEUTROPHILS % (AUTO) 66.4 % (40.0-70.0); PLATELET COUNT (AUTO) 191 K/uL (150-450); RED BLOOD CELL COUNT(AUTO) 4.06 MIL/uL (4.00-5.20); RED CELL DISTRIBUTION WIDTH 12.7 % (11.5-14.5)
[2018-09-14] MEDS: CloZAPine 100 MG TABLET PO SCH ×2 (07:30→20:29)
[2018-09-14] MEDS: OXcarbazepine 300 MG TABLET PO SCH ×2 (07:30→16:16)
[2018-09-14] MEDS: PROPRANOLOL HCL 10 MG TABLET PO SCH ×2 (07:30→16:16)
[2018-09-14] MEDS: DOCUSATE SODIUM 250 MG CAPSULE PO SCH ×2 (07:30→16:16)
[2018-09-14] MEDS: BENZTROPINE MESYLATE 2 MG TABLET PO SCH ×2 (07:30→16:16)
[2018-09-14] MEDS: QUEtiapine FUMARATE 100 MG TABLET PO SCH ×3 (07:30→16:15)
[2018-09-14] MEDS: SODIUM CHLORIDE 1 GM TABLET PO SCH ×3 (07:30→16:16)
[2018-09-14] MEDS: OLANZapine 5 MG TABLET PO PRN ×2 (07:32→12:08)
[2018-09-14] MEDS: LORazepam 2 MG TABLET PO PRN ×2 (07:32→12:08)
[2018-09-14] MEDS: CITALOPRAM HYDROBROMIDE 10 MG TABLET PO SCH (07:36)
[2018-09-14 09:09] VITALS: BP 118/84
[2018-09-14 16:17] VITALS: BP 140/91
[2018-09-14] MEDS: QUEtiapine FUMARATE 200 MG TABLET PO SCH (20:28)
[2018-09-15] MEDS: PROPRANOLOL HCL 10 MG TABLET PO SCH ×2 (07:44→17:28)
[2018-09-15] MEDS: QUEtiapine FUMARATE 100 MG TABLET PO SCH ×3 (07:44→17:28)
[2018-09-15] MEDS: CITALOPRAM HYDROBROMIDE 10 MG TABLET PO SCH (07:44)
[2018-09-15] MEDS: BENZTROPINE MESYLATE 2 MG TABLET PO SCH ×2 (07:44→17:28)
[2018-09-15] MEDS: LORazepam 2 MG TABLET PO PRN ×2 (07:44→17:28)
[2018-09-15] MEDS: OXcarbazepine 300 MG TABLET PO SCH ×2 (07:44→17:28)
[2018-09-15] MEDS: SODIUM CHLORIDE 1 GM TABLET PO SCH ×3 (07:44→17:28)
[2018-09-15] MEDS: DOCUSATE SODIUM 250 MG CAPSULE PO SCH ×2 (07:44→17:28)
[2018-09-15] MEDS: CloZAPine 100 MG TABLET PO SCH ×2 (07:44→20:58)
[2018-09-15] MEDS: OLANZapine 5 MG TABLET PO PRN (07:44)
[2018-09-15 10:06] VITALS: BP 136/82
[2018-09-15 16:00] VITALS: BP 119/74
[2018-09-15] MEDS: QUEtiapine FUMARATE 200 MG TABLET PO SCH (20:58)
[2018-09-16] MEDS: CITALOPRAM HYDROBROMIDE 10 MG TABLET PO SCH (07:43)
[2018-09-16] MEDS: SODIUM CHLORIDE 1 GM TABLET PO SCH ×3 (07:43→17:03)
[2018-09-16] MEDS: OXcarbazepine 300 MG TABLET PO SCH ×2 (07:43→17:03)
[2018-09-16] MEDS: DOCUSATE SODIUM 250 MG CAPSULE PO SCH ×2 (07:44→17:03)
[2018-09-16] MEDS: PROPRANOLOL HCL 10 MG TABLET PO SCH ×2 (07:44→17:10)
[2018-09-16] MEDS: QUEtiapine FUMARATE 100 MG TABLET PO SCH ×3 (07:44→17:03)
[2018-09-16] MEDS: BENZTROPINE MESYLATE 2 MG TABLET PO SCH ×2 (07:44→17:03)
[2018-09-16] MEDS: CloZAPine 100 MG TABLET PO SCH ×2 (07:44→20:09)
[2018-09-16 10:44] VITALS: BP 111/64
[2018-09-16 16:15] VITALS: BP 127/82
[2018-09-16] MEDS: QUEtiapine FUMARATE 200 MG TABLET PO SCH (20:08)
[2018-09-17] MEDS: SODIUM CHLORIDE 1 GM TABLET PO SCH ×4 (07:47→17:42)
[2018-09-17] MEDS: PROPRANOLOL HCL 10 MG TABLET PO SCH ×2 (07:47→16:19)
[2018-09-17] MEDS: DOCUSATE SODIUM 250 MG CAPSULE PO SCH ×2 (07:47→16:19)
[2018-09-17] MEDS: OXcarbazepine 300 MG TABLET PO SCH ×2 (07:47→16:20)
[2018-09-17] MEDS: QUEtiapine FUMARATE 100 MG TABLET PO SCH ×3 (07:47→16:19)
[2018-09-17] MEDS: CloZAPine 100 MG TABLET PO SCH ×2 (07:47→19:55)
[2018-09-17] MEDS: BENZTROPINE MESYLATE 2 MG TABLET PO SCH ×2 (07:47→16:19)
[2018-09-17] MEDS: CITALOPRAM HYDROBROMIDE 10 MG TABLET PO SCH (07:48)
[2018-09-17 09:57] VITALS: BP 121/76
[2018-09-17] MEDS: LORazepam 2 MG TABLET PO PRN ×2 (12:10→16:17)
[2018-09-17] MEDS: QUEtiapine FUMARATE 200 MG TABLET PO SCH (19:55)
[2018-09-18] MEDS: CloZAPine 100 MG TABLET PO SCH ×2 (08:29→21:12)
[2018-09-18] MEDS: DOCUSATE SODIUM 250 MG CAPSULE PO SCH ×2 (08:29→16:27)
[2018-09-18] MEDS: PROPRANOLOL HCL 10 MG TABLET PO SCH ×2 (08:29→16:26)
[2018-09-18] MEDS: OXcarbazepine 300 MG TABLET PO SCH ×2 (08:29→16:26)
[2018-09-18] MEDS: BENZTROPINE MESYLATE 2 MG TABLET PO SCH ×2 (08:29→16:28)
[2018-09-18] MEDS: SODIUM CHLORIDE 1 GM TABLET PO SCH ×3 (08:29→16:26)
[2018-09-18 08:30] VITALS: BP 118/87
[2018-09-18] MEDS: CITALOPRAM HYDROBROMIDE 10 MG TABLET PO SCH (08:30)
[2018-09-18] MEDS: QUEtiapine FUMARATE 100 MG TABLET PO SCH ×3 (08:31→16:26)
[2018-09-18] MEDS: LORazepam 2 MG TABLET PO PRN (09:36)
[2018-09-18 16:23] VITALS: BP 132/96
[2018-09-18] MEDS: QUEtiapine FUMARATE 200 MG TABLET PO SCH (21:12)
[2018-09-18] MEDS: ZOLPIDEM TARTRATE 10 MG TABLET PO PRN (21:19)
[2018-09-19] MEDS: SODIUM CHLORIDE 1 GM TABLET PO SCH ×3 (07:50→16:21)
[2018-09-19] MEDS: NICOTINE 21 MG/24 HOUR PATCH TD PRN (07:50)
[2018-09-19] MEDS: BENZTROPINE MESYLATE 2 MG TABLET PO SCH ×2 (07:50→16:21)
[2018-09-19] MEDS: LORazepam 2 MG TABLET PO PRN ×3 (07:50→20:09)
[2018-09-19] MEDS: OXcarbazepine 300 MG TABLET PO SCH ×2 (07:50→16:21)
[2018-09-19] MEDS: OLANZapine 5 MG TABLET PO PRN ×3 (07:50→20:09)
[2018-09-19] MEDS: CITALOPRAM HYDROBROMIDE 10 MG TABLET PO SCH (07:50)
[2018-09-19] MEDS: PROPRANOLOL HCL 10 MG TABLET PO SCH ×2 (07:50→16:21)
[2018-09-19] MEDS: QUEtiapine FUMARATE 100 MG TABLET PO SCH ×3 (07:51→16:21)
[2018-09-19] MEDS: CloZAPine 100 MG TABLET PO SCH ×2 (07:51→20:07)
[2018-09-19] MEDS: DOCUSATE SODIUM 250 MG CAPSULE PO SCH ×2 (07:51→16:21)
[2018-09-19 08:00] VITALS: BP 102/63
[2018-09-19 16:30] VITALS: BP 131/86
[2018-09-19] MEDS: QUEtiapine FUMARATE 200 MG TABLET PO SCH (20:07)
[2018-09-20 08:00] VITALS: BP 104/80
[2018-09-20] MEDS: DOCUSATE SODIUM 250 MG CAPSULE PO SCH ×2 (08:32→16:25)
[2018-09-20] MEDS: BENZTROPINE MESYLATE 2 MG TABLET PO SCH ×2 (08:32→16:24)
[2018-09-20] MEDS: OXcarbazepine 300 MG TABLET PO SCH ×2 (08:32→16:25)
[2018-09-20] MEDS: PROPRANOLOL HCL 10 MG TABLET PO SCH ×2 (08:32→16:25)
[2018-09-20] MEDS: SODIUM CHLORIDE 1 GM TABLET PO SCH ×3 (08:32→16:24)
[2018-09-20] MEDS: CloZAPine 100 MG TABLET PO SCH ×2 (08:32→20:48)
[2018-09-20] MEDS: CITALOPRAM HYDROBROMIDE 10 MG TABLET PO SCH (08:33)
[2018-09-20] MEDS: QUEtiapine FUMARATE 100 MG TABLET PO SCH ×3 (08:34→16:25)
[2018-09-20] MEDS: LORazepam 2 MG TABLET PO PRN ×2 (08:34→13:04)
[2018-09-20] MEDS: OLANZapine 5 MG TABLET PO PRN ×2 (08:42→13:04)
[2018-09-20] MEDS: NICOTINE 21 MG/24 HOUR PATCH TD PRN (09:41)
[2018-09-20 16:22] VITALS: BP 144/87
[2018-09-20] MEDS: QUEtiapine FUMARATE 200 MG TABLET PO SCH (20:48)
[2018-09-21 06:05] LABS: EOSINOPHILS % (AUTO) 0 % (1.0-6.0); HEMATOCRIT 37.5 % (36-46); LYMPHOCYTES % (AUTO) 35.5 % (22.0-44.0); MEAN CORPUSCULAR HEMOGLOBIN 32.2 pg (26.0-34.0); MEAN CORPUSCULAR HGB CONC 34.7 G/dL (31.0-37.0); MEAN CORPUSCULAR VOLUME 93 fL (80-100); MONOCYTES # (AUTO) 0.8 K/uL (0.1-1.0); MONOCYTES % (AUTO) 13.8 % (2.0-9.0); NEUTROPHILS # (AUTO) 2.9 K/uL (1.8-7.7); NEUTROPHILS % (AUTO) 50.7 % (40.0-70.0); PLATELET COUNT (AUTO) 201 K/uL (150-450); RED BLOOD CELL COUNT(AUTO) 4.04 MIL/uL (4.00-5.20); RED CELL DISTRIBUTION WIDTH 12.8 % (11.5-14.5)
[2018-09-21] MEDS ORDERED: CLOZ100 PO (08:10)
[2018-09-21] MEDS ORDERED: BENZ2TAB10 PO (08:10)
[2018-09-21] MEDS ORDERED: DOCU250C91 PO (08:10)
[2018-09-21] MEDS ORDERED: NACL1 PO (08:10)
[2018-09-21] MEDS ORDERED: OXCA300T29 PO (08:10)
[2018-09-21] MEDS: DOCUSATE SODIUM 250 MG CAPSULE PO SCH (08:29)
[2018-09-21] MEDS: PROPRANOLOL HCL 10 MG TABLET PO SCH (08:29)
[2018-09-21] MEDS: CloZAPine 100 MG TABLET PO SCH (08:29)
[2018-09-21] MEDS: OXcarbazepine 300 MG TABLET PO SCH (08:29)
[2018-09-21 08:30] VITALS: BP 115/74
[2018-09-21] MEDS: QUEtiapine FUMARATE 100 MG TABLET PO SCH (08:30)
[2018-09-21] MEDS: CITALOPRAM HYDROBROMIDE 10 MG TABLET PO SCH (08:30)
[2018-09-21] MEDS: SODIUM CHLORIDE 1 GM TABLET PO SCH (08:30)
[2018-09-21] MEDS: BENZTROPINE MESYLATE 2 MG TABLET PO SCH (08:30)
== END 2018-09-21 11:45 | DRG 750 ==
LOC: EMS 15:12 → 3EC 20:37
DX: F25.0 Schizoaffective disorder, bipolar type (principal); E87.1 Hypo-osmolality and hyponatremia; R00.0 Tachycardia, unspecified; E78.5 Hyperlipidemia, unspecified; G47.00 Insomnia, unspecified; M54.5 Low back pain; K59.00 Constipation, unspecified; F19.10 Other psychoactive substance abuse, uncomplicated; F17.200 Nicotine dependence, unspecified, uncomplicated; Z88.8 Allergy status to other drugs, medicaments and biological substances; D72.819 Decreased white blood cell count, unspecified; F17.210 Nicotine dependence, cigarettes, uncomplicated; F79 Unspecified intellectual disabilities; K59.09 Other constipation; Z79.899 Other long term (current) drug therapy; Z91.19 Patient's noncompliance with other medical treatment and regimen
CPT/HCPCS: 74018; 80307; 87081; 99406; G0480